=== PATIENT | female | born 1985 | race Caucasian/White ===

== ENCOUNTER 2016-10-16 11:10 | Emergency (ER) | payer OTHER ==
[2016-10-16] MEDS ORDERED: OXYCODONE/APAP 5/325MG COMBO TABLET PO ONE (11:18)
--- NOTE | 2016-10-16 11:18 | PDOC ---
History of Present Illness - General Chief Complaint: Chronic pain Stated Complaint: RIGHT SHOULDER PAIN History Source: Patient Exam Limitations: No Limitations - History of Present Illness Initial Comments: 10/16/16 11:15 The patient is a 30-year-old female, with a significant past medical history of known right rotator cuff injury and chronic pain, hypertension, diabetes, who presents to the emergency Department with worsened right shoulder pain for the past 3 days. She states that she has exacerbations every 1-2 months, and that this episode is very similar to her prior exacerbations. The pain is a dull ache , moderate in intensity. It is worsened by movement or palpation at the joint. She denies distal weakness or paresthesias. She denies reinjury. She denies fever, chills, rash. She states that she took a Percocet with excellent relief, but has no others at home. She did not take any of her medications this morning. Past History - Past Medical History Allergies/Adverse Reactions: Allergies Allergy/AdvReac Type Severity Reaction Status Date / Time diphenhydramine HCl AdvReac Verified 10/16/16 11:17 [From Benadryl] erythromycin base AdvReac Nausea Verified 10/16/16 11:18 Home Medications: Ambulatory Orders Levothyroxine [Synthroid -] 75 mcg PO DAILY 03/01/13 Ramipril [Altace] 20 mg PO DAILY 04/28/13 Insulin (Levemir) [Levemir Vial] 22 unit SQ BID 07/23/15 Insulin (LOG) Aspart [NovoLOG -] 6 units SQ TID 10/16/16 Naproxen [Naprosyn] 500 mg PO BID PRN #20 tablet 10/16/16 Oxycodone HCl/Acetaminophen [Percocet 5-325 mg Tablet] 1 - 2 combo PO Q4H PRN # 20 tablet MDD 6 10/16/16 Prednisone [Deltasone -] 40 mg PO ONCE #1 tablet 10/16/16 Anemia: No Asthma: (+) Cancer: No Cardiac Disorders: No CVA: No COPD: (+) CHF: No Dementia: No Diabetes: Yes GI Disorders: No Disorders: No HTN: Yes Hypercholesterolemia: No Kidney Stones: No Liver Disease: No Psychiatric Problems: Yes (Anxiety,Depression) Suicide Attempt (Hx): No Seizures: No Thyroid Disease: Yes (Muriel's disease hypothyroidism) - Surgical History Abdominal Surgery: No Neurologic Surgery: Yes (DISCECTOMY-2012) Orthopedic Surgery: Yes (surgert for herniated disc in 2012 at [facility]) - Immunization History Immunization Up to Date: Yes - Psycho/Social/Smoking Cessation Hx Anxiety: Yes Suicidal Ideation: No Smoking Status: Yes Smoking History: Never smoked Have you smoked in the past 12 months: No Number of Cigarettes Smoked Daily: 10 Cigars Per Day: 0 'Breaking Loose' booklet given: 08/04/14 Hx Alcohol Use: No Drug/Substance Use Hx: No Substance Use Type: Alcohol, Heroin, Marijuana Hx Substance Use Treatment: Yes (2012 [facility]) Review of Systems - Review of Systems Comments:: 10/16/16 11:16 CONSTITUTIONAL: Absent: fever, chills, fatigue EYES: Absent: visual changes ENT: Absent: ear pain, sore throat CARDIOVASCULAR: Absent: chest pain, palpitations, loss of consciousness RESPIRATORY: Absent: cough, SOB GI: Absent: abdominal pain, nausea, vomiting, constipation, diarrhea GENITOURINARY: Absent: dysuria, frequency, hematuria MUSKULOSKELETAL: Present: Right shoulder pain Absent: back pain SKIN: Absent: rash NEURO: Absent: headache, dizziness *Physical Exam - Physical Exam Comments: 10/16/16 11:17 GENERAL: Well-appearing, well-nourished. No apparent distress. HEENT: Normocephalic, atraumatic. PERRL, EOM intact. CARDIOVASCULAR: Normal S1, S2. Regular rate and rhythm. PULMONARY: Clear to auscultation bilaterally. ABDOMEN: Soft, non-distended, non-tender. EXTREMITIES: There is no tenderness to palpation of the right shoulder joint or girdle. There is pain with active or passive range of motion at the right shoulder Normal ROM in all four extremities. No gross deformities. SKIN: Warm, dry. No rash NEUROLOGICAL: No focal neurological deficits. Medical Decision Making - Medical Decision Making 10/16/16 11:17 The patient is well-appearing and in no acute distress Vitals noted She states that she did not take any of her medications this morning, and that she is both anxious and in pain She does not have any evidence of end organ damage Will recheck blood pressure 10/16/16 11:53 Blood pressure improved, though she remains hypertensive After extensive discussion, regarding the risks and benefits of the use of steroids to treat exacerbation of her chronic pain, both in regard to her diabetes and hypertension, I am electing to prescribe a single dose of prednisone 40 mg. She understands that she should not take it if her blood pressure is above 150/90. We had a similar discussion regarding the use of NSAIDs in regard to her blood pressure, and she also understands that she should not take them if her blood pressure is above 150/90. She has the ability to check both her blood sugar and her blood pressure at home. Clinical impression: Acute exacerbation of chronic shoulder pain I discussed the physical exam findings, ancillary test results and final diagnoses with the patient. I answered all of the patient's questions. The patient was satisfied with the care received and felt comfortable with the discharge plan and treatment plan. The patient will call their primary care physician within 24 hours to arrange follow-up and will return to the Emergency Department with any new, persistent or worsening symptoms. *DC/Admit/Observation/Transfer Diagnosis at time of Disposition: Chronic shoulder pain, High blood pressure - Discharge Dispostion Disposition: HOME Condition at time of disposition: Stable - Prescriptions Prescriptions: Prednisone [Deltasone -] 40 mg PO ONCE #1 tablet Naproxen [Naprosyn] 500 mg PO BID PRN #20 tablet PRN Reason: Pain Oxycodone HCl/Acetaminophen [Percocet 5-325 mg Tablet] 1 - 2 combo PO Q4H PRN # 20 tablet MDD 6 PRN Reason: Pain - Patient Instructions Printed Discharge Instructions: DI for Chronic Pain -- Adult, DI for Shoulder Pain Additional Instructions: Return to the emergency department immediately with ANY new, persistent or worsening symptoms. You MUST call and follow up with your doctor tomorrow. Please make sure your doctor reviews the results of your emergency department evaluation. Take your blood pressure medication as soon as you return home. Do not take the Naprosyn or the prednisone if your blood pressure is higher than 150/90. - Post Discharge Activity Work/School Note: Back to Work
[2016-10-16 11:36] VITALS: TEMP 98.3; BMI 18.6
[2016-10-16 12:17] VITALS: BP 154/108; PULSE 96
== END 2016-10-16 12:18 | disposition home or self-care (01) ==
LOC: FER 11:10
DX: M25.511 Pain in right shoulder (principal); I10 Essential (primary) hypertension; F41.8 Other specified anxiety disorders; E11.9 Type 2 diabetes mellitus without complications; G89.29 Other chronic pain; E06.3 Autoimmune thyroiditis
CPT/HCPCS: 99282-25

== ENCOUNTER 2016-10-31 11:23 | Emergency (ER) | payer OTHER ==
--- NOTE | 2016-10-31 11:32 | PDOC ---
History of Present Illness - General Chief Complaint: Pain, Acute Stated Complaint: RIGHT SIDE OF BACK PAIN TO SHOULDER AND NECK Time Seen by Provider: 10/31/16 11:31 History Source: Patient Exam Limitations: No Limitations - History of Present Illness Initial Comments: 30 yo F history Muriel's thyroiditis, DM, HTN, scoliosis presents with mid back pain. She states she was recently treated for UTI, initially on bactrim, but changed to a different antibiotic when she had vomiting with bactrim. Denies nausea, vomiting, fever, chills. She states she woke up with the pain, localizes to the right side of her spine in mid-back. No weakness, numbness. Pain is worse with ROM of the spine, better with rest. She took naproxen without relief. Past History - Past Medical History Allergies/Adverse Reactions: Allergies Allergy/AdvReac Type Severity Reaction Status Date / Time diphenhydramine HCl AdvReac Verified 10/31/16 11:25 [From Benadryl] erythromycin base AdvReac Nausea Verified 10/31/16 11:25 Home Medications: Ambulatory Orders Levothyroxine [Synthroid -] 75 mcg PO DAILY 03/01/13 Insulin (Levemir) [Levemir Vial] 22 unit SQ BID 07/23/15 Insulin (LOG) Aspart [NovoLOG -] 6 units SQ TID 10/16/16 Naproxen [Naprosyn] 500 mg PO BID PRN #20 tablet 10/16/16 Gabapentin 300 mg PO TID 10/31/16 Methocarbamol [Robaxin -] 500 mg PO BID PRN #14 tablet 10/31/16 Ramipril [Altace] 20 mg PO DAILY 10/31/16 Anemia: No Asthma: (+) Cancer: No Cardiac Disorders: No CVA: No COPD: (+) CHF: No Dementia: No Diabetes: Yes GI Disorders: No Disorders: No HTN: Yes Hypercholesterolemia: No Kidney Stones: No Liver Disease: No Psychiatric Problems: Yes (Anxiety,Depression) Suicide Attempt (Hx): No Seizures: No Thyroid Disease: Yes (Muriel's disease hypothyroidism) - Surgical History Abdominal Surgery: No Neurologic Surgery: Yes (DISCECTOMY-2012) Orthopedic Surgery: Yes (surgert for herniated disc in 2011 at [facility]) - Immunization History Immunization Up to Date: Yes - Psycho/Social/Smoking Cessation Hx Anxiety: Yes Suicidal Ideation: No Smoking Status: Yes Smoking History: Never smoked Have you smoked in the past 12 months: No Number of Cigarettes Smoked Daily: 10 Cigars Per Day: 0 'Breaking Loose' booklet given: 10/16/16 Hx Alcohol Use: No Drug/Substance Use Hx: No Substance Use Type: Alcohol, Heroin, Marijuana Hx Substance Use Treatment: Yes (2012 [facility]) Review of Systems - Review of Systems Able to Perform ROS?: Yes Comments:: GENERAL/CONSTITUTIONAL: No fever or chills. No weakness. HEAD, EYES, EARS, NOSE AND THROAT: No change in vision. No ear pain or discharge. No sore throat. CARDIOVASCULAR: No chest pain or shortness of breath. RESPIRATORY: No cough, wheezing, or hemoptysis. GASTROINTESTINAL: No nausea, vomiting, diarrhea or constipation. GENITOURINARY: No dysuria, frequency, or change in urination. MUSCULOSKELETAL: No joint or muscle swelling or pain. No neck pain. +Back pain. SKIN: No rash NEUROLOGIC: No headache, vertigo, loss of consciousness, or change in strength/ sensation. ENDOCRINE: No increased thirst. No abnormal weight change. HEMATOLOGIC/LYMPHATIC: No anemia, easy bleeding, or history of blood clots. ALLERGIC/IMMUNOLOGIC: No hives or skin allergy. *Physical Exam - Physical Exam Comments: GENERAL: Awake, alert, and fully oriented, appears uncomfortable. HEAD: No signs of trauma EYES: PERRLA, EOMI, sclera anicteric, conjunctiva clear ENT: Auricles normal inspection, hearing grossly normal, nares patent, oropharynx clear without exudates. Moist mucosa NECK: Normal ROM, supple, no lymphadenopathy, JVD, or masses LUNGS: Breath sounds equal, clear to auscultation bilaterally. No wheezes, and no crackles HEART: Regular rate and rhythm, normal S1 and S2, no murmurs, rubs or gallops ABDOMEN: Soft, nontender, normoactive bowel sounds. No guarding, no rebound. No masses. No CVAT. EXTREMITIES: Normal range of motion, no edema. No clubbing or cyanosis. No cords , erythema, or tenderness NEUROLOGICAL: Cranial nerves II through XII grossly intact. Normal speech, normal gait SKIN: Warm, Dry, normal turgor, no rashes or lesions noted. SPINE: +Scoliosis, with muscle spasms and tenderness to the R paraspinal lower thoracic and upper lumbar muscles. No midline tenderness. Medical Decision Making - Medical Decision Making 10/31/16 12:05 i-STOP Reference #: [id number]- patient with prior history of substance abuse as per chart review. 10/31/16 13:01 Patient states that her pain is now at a 1/10 with robaxin. She feels much better and would like to go home. Her ROM of her back has improved significantly. Given the proximity of the muscle spasm to the curvature of the spine, suspect her intermittent muscle spasms may be related to her scoliosis. Recommended possibly considering Schroth therapy, as she states she has had these spasms multiple times in the past. *DC/Admit/Observation/Transfer Diagnosis at time of Disposition: Muscle spasm - Discharge Dispostion Disposition: HOME Condition at time of disposition: Improved Admit: No - Prescriptions Prescriptions: Methocarbamol [Robaxin -] 500 mg PO BID PRN #14 tablet PRN Reason: Muscle Spasms - Patient Instructions Printed Discharge Instructions: DI for Muscle Strain
[2016-10-31 11:40] VITALS: BP 149/67; PULSE 85; TEMP 98.3; BMI 18.8
[2016-10-31] MEDS ORDERED: METHOCARBAMOL 500 MG TABLET PO ONE (11:51)
[2016-10-31] MEDS ORDERED: METHOCARBAMOL 500 MG TABLET ONE (11:58)
== END 2016-10-31 13:07 | disposition home or self-care (01) ==
LOC: FER 11:23
DX: M62.838 Other muscle spasm (principal); E06.3 Autoimmune thyroiditis; E11.9 Type 2 diabetes mellitus without complications; I10 Essential (primary) hypertension; M41.9 Scoliosis, unspecified; Z79.4 Long term (current) use of insulin
CPT/HCPCS: 99282-25

== ENCOUNTER 2017-01-02 14:35 | Emergency (ER) | payer OTHER ==
[2017-01-02 15:05] VITALS: BP 161/92; PULSE 89; TEMP 98.6; BMI 21.4
--- NOTE | 2017-01-02 15:43 | PDOC ---
History of Present Illness <Radha Herrera - Last Filed: 01/02/17 15:58> - History of Present Illness Initial Comments: 01/02/17 15:54 The patient is a 31 year old female, with a significant past medical history of type I diabetes, hypertension, and hypothyroidism, who presents to the emergency department with pain, tenderness, and mild swelling to her right upper back, shoulder and lower back for a week. She states she has been diagnosed with right shoulder and hip bursitis and tendonitis. She states she takes aleve and naproxen with significant relief of her back pain, however, she denies relief with the use of her medication for the past week. She states she has a rheumatoloist appointment next month. She states she has been told her scoliosis is mild. She states she has been through plenty of rehab for her back pain. 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 She denies chest pain, shortness of breath, headache and dizziness. She denies fever, chills, nausea, vomit, diarrhea and constipation. She denies dysuria, frequency, urgency and hematuria. Allergies: NKDA Past surgical history: L5S1 discectomy Social history: Denies toxic habits <Aletha Joseph - Last Filed: 01/02/17 16:03> - General Chief Complaint: Pain, Acute Stated Complaint: BACK PAIN Time Seen by Provider: 01/02/17 15:43 Past History - Past Medical History Anemia: No Asthma: (+) Cancer: No Cardiac Disorders: No CVA: No COPD: (+) CHF: No Dementia: No Diabetes: Yes GI Disorders: No Disorders: No HTN: Yes Hypercholesterolemia: No Kidney Stones: No Liver Disease: No Psychiatric Problems: Yes (Anxiety,Depression) Suicide Attempt (Hx): No Seizures: No Thyroid Disease: Yes (Muriel's disease hypothyroidism) - Surgical History Abdominal Surgery: No Neurologic Surgery: Yes (DISCECTOMY-2011) Orthopedic Surgery: Yes (surgert for herniated disc in 2011 at [facility]) - Immunization History Immunization Up to Date: Yes - Psycho/Social/Smoking Cessation Hx Anxiety: Yes Suicidal Ideation: No Smoking Status: Yes Smoking History: Smoker current status UNK Have you smoked in the past 12 months: No Number of Cigarettes Smoked Daily: 10 Cigars Per Day: 0 'Breaking Loose' booklet given: 10/16/16 Hx Alcohol Use: Yes Drug/Substance Use Hx: No Substance Use Type: Alcohol, Heroin, Marijuana Hx Substance Use Treatment: Yes (2012 [facility]) <Radha Herrera - Last Filed: 01/02/17 15:58> <Aletha Joseph - Last Filed: 01/02/17 16:03> - Past Medical History Allergies/Adverse Reactions: Allergies Allergy/AdvReac Type Severity Reaction Status Date / Time diphenhydramine HCl AdvReac Verified 01/02/17 14:51 [From Benadryl] erythromycin base AdvReac Nausea Verified 01/02/17 14:51 Home Medications: Ambulatory Orders Levothyroxine [Synthroid -] 75 mcg PO DAILY 03/01/13 Insulin (Levemir) [Levemir Vial] 22 unit SQ BID 07/23/15 Insulin (LOG) Aspart [NovoLOG -] 6 units SQ TID 10/16/16 Naproxen [Naprosyn] 500 mg PO BID PRN #20 tablet 10/16/16 Gabapentin 300 mg PO TID 10/31/16 Methocarbamol [Robaxin -] 500 mg PO BID PRN #14 tablet 10/31/16 Ramipril [Altace] 20 mg PO DAILY 10/31/16 Methylprednisolone [Medrol Dose Arnold] 4 mg PO ASDIR #21 tablet 01/02/17 Oxycodone HCl/Acetaminophen [Percocet 5/325 -] 1 tab PO Q6H #14 tablet MDD 4 Review of Systems - Review of Systems Able to Perform ROS?: Yes Comments:: 01/02/17 15:55 CONSTITUTIONAL: Absent: fever, chills, diaphoresis, generalized weakness, malaise, loss of appetite HEENT: Absent: rhinorrhea, nasal congestion, throat pain, throat swelling, difficulty swallowing, mouth swelling, ear pain, eye pain, visual Changes CARDIOVASCULAR: Absent: chest pain, syncope, palpitations, irregular heart rate, lightheadedness , peripheral edema RESPIRATORY: Absent: cough, shortness of breath, dyspnea with exertion, orthopnea, wheezing, stridor, hemoptysis GASTROINTESTINAL: Absent: abdominal pain, abdominal distension, nausea, vomiting, diarrhea, constipation, melena, hematochezia GENITOURINARY: Absent: dysuria, frequency, urgency, hesitancy, hematuria, flank pain, genital pain MUSCULOSKELETAL: (+) upper and lower right sided back pain. Absent: arthralgia, joint swelling SKIN: Absent: rash, itching, pallor HEMATOLOGIC/IMMUNOLOGIC: Absent: easy bleeding, easy bruising, lymphadenopathy, frequent infections ENDOCRINE: Absent: unexplained weight gain, unexplained weight loss, heat intolerance, cold intolerance NEUROLOGIC: Absent: headache, focal weakness or paresthesias, dizziness, unsteady gait, seizure, mental status changes, bladder or bowel incontinence PSYCHIATRIC: Absent: anxiety, depression, suicidal or homicidal ideation, hallucinations. <Aletha Joseph - Last Filed: 01/02/17 16:03> *Physical Exam - Vital Signs Last Vital Signs Temp Pulse Resp BP Pulse Ox 98.6 F 89 17 161/92 100 01/02/17 14:36 01/02/17 14:36 01/02/17 14:36 01/02/17 14:36 01/02/17 14:36 <Radha Herrera - Last Filed: 01/02/17 15:58> - Vital Signs Last Vital Signs Temp Pulse Resp BP Pulse Ox 98.6 F 89 17 161/92 100 01/02/17 14:36 01/02/17 14:36 01/02/17 14:36 01/02/17 14:36 01/02/17 14:36 - Physical Exam Comments: 01/02/17 15:56 GENERAL: Well developed, well nourished. Awake and alert. No acute distress. HEENT: Normocephalic, atraumatic. PERRLA, EOMI. No conjunctival pallor. Sclera are non- icteric. Moist mucous membranes. Oropharynx is clear. NECK: Supple. Full ROM. No JVD. Carotid pulses 2+ and symmetric, without bruits. No thyromegaly. No lymphadenopathy. CARDIOVASCULAR: Regular rate and rhythm. No murmurs, rubs, or gallops. Distal pulses are 2+ and symmetric. PULMONARY: No evidence of respiratory distress. Lungs clear to auscultation bilaterally. No wheezing, rales or rhonchi. ABDOMINAL: Soft. Non-tender. Non-distended. No rebound or guarding. No organomegaly. Normoactive bowel sounds. MUSCULOSKELETAL SPINE: (+) scoliosis of the spine with curvature to the right. right paraspinal tenderness to the thoracic and lumbar regions. There is no swelling appreciated to the joints or back. Normal range of motion at all joints. No bony deformities. No CVA tenderness. EXTREMITIES: No cyanosis. No clubbing. No edema. No calf tenderness. SKIN: Warm and dry. Normal capillary refill. No rashes. No jaundice. NEUROLOGICAL: Alert, awake, appropriate. Cranial nerves 2-12 intact. Normoreflexic in the upper and lower extremities. Normal speech. Toes are down-going bilaterally. Gait is normal without ataxia. PSYCHIATRIC: Cooperative. Good eye contact. Appropriate mood and affect. <Aletha Joseph - Last Filed: 01/02/17 16:03> *DC/Admit/Observation/Transfer - Discharge Dispostion Admit: No <Radha Herrera - Last Filed: 01/02/17 15:58> <Aletha Joseph - Last Filed: 01/02/17 16:03> Diagnosis at time of Disposition: Scoliosis, Muscle spasm - Discharge Dispostion Disposition: HOME Condition at time of disposition: Stable - Prescriptions Prescriptions: Methylprednisolone [Medrol Dose Arnold] 4 mg PO ASDIR #21 tablet Oxycodone HCl/Acetaminophen [Percocet 5/325 -] 1 tab PO Q6H #14 tablet MDD 4 - Patient Instructions Printed Discharge Instructions: Scoliosis-Adult
== END 2017-01-02 16:04 | disposition home or self-care (01) ==
LOC: FER 14:35
DX: M41.9 Scoliosis, unspecified (principal); M62.830 Muscle spasm of back; E10.9 Type 1 diabetes mellitus without complications; I10 Essential (primary) hypertension; E03.9 Hypothyroidism, unspecified
CPT/HCPCS: 99282-25

== ENCOUNTER 2017-03-19 12:35 | Emergency (ER) | payer OTHER ==
[2017-03-19 12:54] VITALS: BP 150/104; PULSE 72; TEMP 98.6; BMI 19.0
[2017-03-19 13:33] LABS: BASOPHIL 2.4 % (0-2.0); EOSINOPHIL 0.6 % (0-4.5); MCHC 33.4 g/dl (32.0-36.0); MEAN PLT VOLUME 10.5 fl (7.5-11.1); PLATELET COUNT 351 K/MM3 (134-434); WHITE BLOOD COUNT 13.5 K/mm3 (4.0-10.8)
--- NOTE | 2017-03-19 13:35 | PDOC ---
History of Present Illness - General Chief Complaint: Psychiatric Stated Complaint: ACHES & ANXIETY Time Seen by Provider: 03/19/17 12:50 - History of Present Illness Initial Comments: 03/19/17 13:30 31yo female presents to the ED with her father for eval of feeling depressed and anxious. States she was recently dx by her psychologist with bipolar and has an appt to see a psychiatrist at the end of the month. States she hasn't been sleeping. States she feels overwhelmed and has had increasing SI thoughts. Denies HI. Pt is tearful and states she has thought about jumping in front of a train. Pt states she feels overwhelmed also with her chronic back pain. Hx of L5 -s1 discectomy in the past with residual nerve damage and back spasms. Follows with orthopedics for her back. No new back injury. States she also hasn't been compliant with all of her meds because she just doesn't feel like taking them. Hasn't taken her synthroid or bp meds. States she last used her insulin this am. PMHx: bipolar, depression, anxiety, htn, dm, christal PShx: discectomy in back Allergies: erythromycin and benadryl Past History - Past Medical History Allergies/Adverse Reactions: Allergies Allergy/AdvReac Type Severity Reaction Status Date / Time diphenhydramine HCl AdvReac Verified 01/02/17 14:51 [From Benadryl] erythromycin base AdvReac Nausea Verified 01/02/17 14:51 Home Medications: Ambulatory Orders Insulin (Levemir) [Levemir Vial] 20 unit SQ BID 07/23/15 Insulin (LOG) Aspart [NovoLOG -] 4 units SQ TID 10/16/16 Gabapentin 600 mg PO TID 10/31/16 Amlodipine Besylate 5 mg PO DAILY 03/19/17 Atenolol [Tenormin] 25 mg PO DAILY 03/19/17 Clonazepam [Klonopin] 1 mg PO BID PRN #14 tablet MDD 2mg daily 03/19/17 Levothyroxine [Synthroid -] 50 mcg PO DAILY 03/19/17 Anemia: No Asthma: (+) Cancer: No Cardiac Disorders: No CVA: No COPD: No (+) CHF: No Dementia: No Diabetes: Yes GI Disorders: No Disorders: No HTN: Yes Hypercholesterolemia: No Kidney Stones: No Liver Disease: No Psychiatric Problems: Yes (Anxiety,Depression) Seizures: No Thyroid Disease: Yes (Christal's disease hypothyroidism) - Surgical History Abdominal Surgery: No Neurologic Surgery: Yes (DISCECTOMY-2012) Orthopedic Surgery: Yes (surgert for herniated disc in [address] [facility]) - Immunization History Immunization Up to Date: Yes - Suicide/Smoking/Psychosocial Hx Smoking Status: Yes Smoking History: Current every day smoker Have you smoked in the past 12 months: No Number of Cigarettes Smoked Daily: 10 Cigars Per Day: 0 Information on smoking cessation initiated: Yes 'Breaking Loose' booklet given: 10/16/16 Hx Alcohol Use: Yes Drug/Substance Use Hx: Yes Substance Use Type: Alcohol, Heroin, Marijuana Hx Substance Use Treatment: Yes (2012 [facility]) Review of Systems - Review of Systems Able to Perform ROS?: Yes Is the patient limited Sami proficient: No Constitutional: Yes: Weakness. No: Chills, Fever HEENTM: No: Nose Congestion, Throat Pain Respiratory: No: Cough, Shortness of Breath, Wheezing Cardiac (ROS): Yes: Palpitations. No: Chest Pain ABD/GI: No: Diarrhea, Nausea, Vomiting : No: Burning, Dysuria Musculoskeletal: Yes: Back Pain Integumentary: No: Rash Neurological: No: Headache, Numbness, Paresthesia, Tingling, Weakness Psychiatric: Yes: Anxiety, Depression, Frequent Crying, Sleep Pattern Change, Emotional Problems, Mood Swings, Other (SI, no HI) Endocrine: No: Intolerance to Cold, Intolerance to Heat All Other Systems: Reviewed and Negative *Physical Exam - Vital Signs Last Vital Signs Temp Pulse Resp BP Pulse Ox 98.6 F 72 18 150/104 100 03/19/17 12:45 03/19/17 12:45 03/19/17 12:45 03/19/17 12:45 03/19/17 12:45 - Physical Exam General Appearance: Yes: Nourished, Appropriately Dressed, Other (tearful) HEENT: positive: EOMI, Normal Voice, Pharynx Normal Neck: positive: Supple Respiratory/Chest: positive: Lungs Clear, Normal Breath Sounds. negative: Chest Tender, Respiratory Distress, Rales, Rhonchi, Wheezing Cardiovascular: positive: Regular Rhythm, Regular Rate, S1, S2 Vascular Pulses: Dorsalis-Pedis (R): 2+, Doralis-Pedis (L): 2+ Gastrointestinal/Abdominal: positive: Normal Bowel Sounds, Flat, Soft. negative : Tender, Guarding, Rebound Musculoskeletal: positive: Normal Inspection Extremity: positive: Normal Capillary Refill, Normal Inspection, Normal Range of Motion. negative: Calf Tenderness, Erythema Integumentary: positive: Normal Color, Dry, Warm Neurologic: positive: infection prevention coordinator II-XII NML intact, Fully Oriented, Alert, Motor Strength 5/5, Depressed Affect, Other (tearful, emotionally labile) ED Treatment Course - LABORATORY CBC & Chemistry Diagram: 03/19/17 13:14 03/19/17 13:14 Medical Decision Making - Medical Decision Making 03/19/17 13:36 31yo female with SI/depression -check labs given hx of dm, htn, hypothyroidism as organic cause of worsening depression/anxiety/SI -will call psychiatry -1:1 sitter for safety -ua -ucg (pt states she hasn't had her menstrual cycle x 1 year -monitor and re-eval 03/19/17 14:18 pt has been seen by Dr. Ray in the ED. recommends 1mg klonopin BID x 2 weeks and follow up with psych as outpt. Cleared from a psychiatric standpoint and SI complaints. 03/19/17 15:52 re-eval: pt feeling much better. No SI at this time. Cleared by psych. Resting comfortably. Discussed lab results with the patient. Discussed all reasons to return to the ED and need for follow up with psychiatry as an outpt. Dad at the bedside agrees with the plan. Pt agrees with the plan. Stable for d/c to home. *DC/Admit/Observation/Transfer Diagnosis at time of Disposition: DM Diabetes mellitus type 1, Essential hypertension, Insomnia, History of back surgery, Anxiety - Discharge Dispostion Disposition: HOME Condition at time of disposition: Stable Admit: No - Prescriptions Prescriptions: Clonazepam [Klonopin] 1 mg PO BID PRN #14 tablet MDD 2mg daily PRN Reason: Anxiety - Referrals Referrals: Yasmine Gallagher [Staff Physician] - - Patient Instructions Printed Discharge Instructions: DI for Anxiety -- Adult Additional Instructions: Please follow up with the psychiatric clinic as discussed with Dr. Ray. Please take all meds as prescribed. Please call your therapist to arrange for follow up. Please return to the ED with any further concerns. - Post Discharge Activity
[2017-03-19 13:49] LABS: ALBUMIN 4.5 g/dl (3.5-5.0); ALK PHOS 52 U/L (32-92); ANION GAP 7 (8-16); BILIRUBIN,TOTAL 0.4 mg/dl (0.2-1.0); CALCIUM 9.8 mg/dl (8.4-10.2); CO2 28 mmol/L (22-28); CREATININE 0.5 mg/dl (0.6-1.3); GLUCOSE,RANDOM 201 mg/dl (74-106); MAGNESIUM 1.9 mg/dL (1.8-2.4); SGOT/AST 14 U/L (10-42); SGPT/ALT 14 U/L (10-40)
[2017-03-19] MEDS ORDERED: clonazePAM 0.5 MG TABLET ONE (14:10)
--- NOTE | 2017-03-19 14:20 | CON.PSY ---
Psychiatry Consult Chief Complaint: 31 year old female brought to ER by her vfather for increasing anxiety and mood swings. patient attends [facility] in [place] and has a therapist. Sjanjelica is waiting to see a Psychaitrist. Symptoms: reports: Anxiety - Previous Psychiatric Treatment Outpatient: Less than 6 mos ago Inpatient: None - Allergies Allergies: Allergies Allergy/AdvReac Type Severity Reaction Status Date / Time diphenhydramine HCl AdvReac Verified 01/02/17 14:51 [From Benadryl] erythromycin base AdvReac Nausea Verified 01/02/17 14:51 - Current Living Status Usual Living Arrangement: With Parent - Current Mental Status Evaluation Appearance: Well Groomed Attitude: Cooperative - Affect Affect: Full Range Appropriateness: Appropriate to Content - Mood Mood: Anxious - Speech/Language Expressive: Coherent - Psychomotor Activity Psychomotor Activity: Normal - Thought Process Thought Process: Intact - Thought Content Hallucinations: Absent Delusions: Absent - Self Perception Self Perception: No Impairment - Cognition Attention: Alert Orientation: Time Memory, Immediate Recall: Intact Memory, Short Term: 3/3 Memory, Remote with Promptin/3 - Concentration Serial Sevens Intact: Yes Simple Calculations Intact: Yes - Abstraction Proverb Interpretation: Intact Judgement: Intact - Insight Insight: Intact - Impulse Control Impulse Control: Good Control - Suicidal Ideation Suicidal Ideation: No - Homicidal Ideation Homicidal Ideation: No Assessment/Plan 1) patient is not acutely suicidal, no concrete plans. @) Klonapin 1mg po BID for anxiety. 3) follow up at [facility] for an evaluation of ? Bipolar Disorder. 4) Father willing to bring patient home with him and bring to clinic on Tuesday. 5) discharge Patient in care of Family, father.
[2017-03-19] MEDS ORDERED: clonazePAM 0.5 MG TABLET PO ONE (14:28)
[2017-03-19 14:42] LABS: PH,URINE 7.5 (4.5-8); URINE BILIRUBIN 1+ (NEGATIVE); URINE BLOOD Negative (NEGATIVE); URINE COLOR AMBER; URINE GLUCOSE (UA) 3+ (NEGATIVE); URINE KETONE Trace (NEGATIVE); URINE LEUK ESTERASE TRACE (NEGATIVE); URINE NITRITE Negative (NEGATIVE); URINE PROTEIN Trace (NEGATIVE)
[2017-03-19 14:43] LABS: URINE APPEARANCE CLOUDY
[2017-03-19 14:52] LABS: URINE BACTERIA FEW /hpf (NEGATIVE); URINE RBC 0-1 /hpf (0-3)
[2017-03-19 15:22] LABS: THYROID STIMULATING HORMONE 0.09 uIU/ml (0.358-3.74)
[2017-03-19 15:42] LABS: FREE T4 1.11 ng/dl (0.76-1.46)
== END 2017-03-19 16:05 | disposition home or self-care (01) ==
LOC: FER 12:35
DX: E11.9 Type 2 diabetes mellitus without complications (principal); I10 Essential (primary) hypertension; F41.9 Anxiety disorder, unspecified; G47.00 Insomnia, unspecified
CPT/HCPCS: 36415; 80053; 81003; 81015; 83735; 84439; 84443; 84703; 85025; 99283-25

== ENCOUNTER 2017-05-08 00:04 | Inpatient (IN) | payer OTHER ==
[2017-05-08] MEDS ORDERED: FAMOTIDINE IV 20 MG/12 ML VIAL IVPUSH ONE (00:35)
[2017-05-08] MEDS ORDERED: PANTOPRAZOLE SODIUM 40 MG VIAL IVPUSH ONE (00:35)
[2017-05-08] MEDS ORDERED: ONDANSETRON 4 MG/2 ML VIAL IVPB ONE (00:35)
[2017-05-08] MEDS ORDERED: SODIUM CHLORIDE 1,000 ML IV STA ×2 (00:36→01:49)
[2017-05-08] MEDS ORDERED: ACETAMINOPHEN 1000 MG/100 ML VIAL (NON FORMULARY) IVPB ONE (00:39)
[2017-05-08] MEDS ORDERED: ACETAMINOPHEN INJECTION 100 ML IVPB ONE (00:45)
[2017-05-08] MEDS ORDERED: ONDANSETRON *ODT* 4 MG TABLET ONE (00:45)
[2017-05-08] MEDS ORDERED: FAMOTIDINE 20 MG/50 ML IVPB 20 MG/50 ML MG IVPB ONE (00:46)
[2017-05-08] MEDS ORDERED: PANTOPRAZOLE SODIUM 40 MG VIAL ONE (00:46)
[2017-05-08] MEDS ORDERED: ONDANSETRON 4 MG/2 ML VIAL ONE (00:46)
--- NOTE | 2017-05-08 00:54 | PDOC ---
History of Present Illness - General History Source: Patient, Family, Old Records Exam Limitations: No Limitations - History of Present Illness Initial Comments: 05/08/17 00:55 The patient is a 31 year old female, with a significant past medical history of type I diabetes, hypertension, hypothyroidism, anxiety, and depression, who presents to the emergency department via EMS with, elevated glucose readings, abdominal pain, constipation, and emesis. She reports blood glucose readings between 300-399. As per EMS, her glucose reading was 422. Patient reports giving herself an enema last night. She reports the nausea and emesis began secondary to the enema. She reports significant abdominal pain. As per patients mother, she has only had water and Gatorade today, due to her symptoms. She denies taking her medication today due to her symptoms. She denies recent fevers, chills, headache or dizziness. She denies recent diarrhea. She denies recent dysuria, frequency, urgency or hematuria. She denies recent chest pain or shortness of breath. Allergies: Diphenhydramine HCl, erythromycin base. Past surgical history: L5S1 discectomy. Primary Care Physician: Dr. Stovall <Charly Akers - Last Filed: 05/08/17 00:55> - General History Source: Patient, Family, Old Records Exam Limitations: No Limitations <Roberto Kinney - Last Filed: 05/08/17 01:56> <Radha Truong - Last Filed: 05/08/17 06:36> - General Chief Complaint: Pain, Acute Stated Complaint: HYPERGLYCEMIA Time Seen by Provider: 05/08/17 00:11 Past History <Charly Akers - Last Filed: 05/08/17 00:55> - Past Medical History Anemia: No Asthma: (+) Cancer: No Cardiac Disorders: No CVA: No COPD: No (+) CHF: No Dementia: No Diabetes: Yes GI Disorders: No Disorders: No HTN: Yes Hypercholesterolemia: No Kidney Stones: No Liver Disease: No Psychiatric Problems: Yes (Anxiety,Depression) Seizures: No Thyroid Disease: Yes (Muriel's disease hypothyroidism) - Surgical History Abdominal Surgery: No Neurologic Surgery: Yes (DISCECTOMY-2011) Orthopedic Surgery: Yes (surgert for herniated disc in 2011 at [facility]) - Immunization History Immunization Up to Date: Yes - Suicide/Smoking/Psychosocial Hx Smoking Status: Yes Smoking History: Current every day smoker Have you smoked in the past 12 months: No Number of Cigarettes Smoked Daily: 9 Cigars Per Day: 0 Information on smoking cessation initiated: No 'Breaking Loose' booklet given: 03/19/17 Hx Alcohol Use: No Drug/Substance Use Hx: No Substance Use Type: Alcohol, Heroin, Marijuana Hx Substance Use Treatment: Yes (2012 [facility]) <Roberto Kinney - Last Filed: 05/08/17 01:56> <Radha Truong - Last Filed: 05/08/17 06:36> - Past Medical History Allergies/Adverse Reactions: Allergies Allergy/AdvReac Type Severity Reaction Status Date / Time No Known Drug Allergies Allergy Verified 05/08/17 02:15 diphenhydramine HCl AdvReac Verified 05/08/17 01:52 [From Benadryl] erythromycin base AdvReac Nausea Verified 05/08/17 01:52 Home Medications: Ambulatory Orders Baclofen 10 mg PO DAILY 05/08/17 Clonazepam [Klonopin] 2 mg PO DAILY 05/08/17 Fluoxetine HCl [Prozac] 10 mg PO DAILY 05/08/17 Insulin (Levemir) [Levemir Vial] 22 unit SQ DAILY 05/08/17 Lamotrigine [Lamictal] 25 mg PO DAILY 05/08/17 Levothyroxine [Synthroid -] 50 mcg PO DAILY 05/08/17 Ramipril [Altace] 10 mg PO DAILY 05/08/17 Trazodone HCl 300 mg PO DAILY 05/08/17 Review of Systems - Review of Systems Able to Perform ROS?: Yes Comments:: 05/08/17 00:55 GENERAL/CONSTITUTIONAL: +Elevated blood glucose levels. No fever or chills. No weakness. HEAD, EYES, EARS, NOSE AND THROAT: No change in vision. No ear pain or discharge. No sore throat. CARDIOVASCULAR: No chest pain or shortness of breath. RESPIRATORY: No cough, wheezing, or hemoptysis. GASTROINTESTINAL: +Abdominal pain. +Constipation. +Nausea. +Vomiting. No diarrhea. GENITOURINARY: No dysuria, frequency, or change in urination. MUSCULOSKELETAL: No joint or muscle swelling or pain. No neck or back pain. SKIN: No rash NEUROLOGIC: No headache, vertigo, loss of consciousness, or change in strength/ sensation. ENDOCRINE: No increased thirst. No abnormal weight change. HEMATOLOGIC/LYMPHATIC: No anemia, easy bleeding, or history of blood clots. ALLERGIC/IMMUNOLOGIC: No hives or skin allergy. All Other Systems: Reviewed and Negative <Charly Akers - Last Filed: 05/08/17 00:55> *Physical Exam - Vital Signs Last Vital Signs Temp Pulse Resp BP Pulse Ox 97.5 F L 100 H 20 144/102 100 05/08/17 00:39 05/08/17 00:39 05/08/17 00:39 05/08/17 00:39 05/08/17 00:39 - Physical Exam Comments: 05/08/17 00:56 GENERAL: +Uncomfortable appearing. Awake, alert, and fully oriented HEAD: No signs of trauma EYES: PERRLA, EOMI, sclera anicteric, conjunctiva clear ENT: +Dry mucous membranes. Auricles normal inspection, hearing grossly normal, nares patent, oropharynx clear without exudates. NECK: Normal ROM, supple, no lymphadenopathy, JVD, or masses ABDOMEN: +Distended abdomen. EXTREMITIES: Normal range of motion, no edema. No clubbing or cyanosis. No cords, erythema, or tenderness NEUROLOGICAL: Cranial nerves II through XII grossly intact. Normal speech, normal gait SKIN: Warm, Dry, normal turgor, no rashes or lesions noted. <Charly Akers - Last Filed: 05/08/17 00:55> - Vital Signs Last Vital Signs Temp Pulse Resp BP Pulse Ox 97.5 F L 100 H 20 144/102 100 05/08/17 00:39 05/08/17 00:39 05/08/17 00:39 05/08/17 00:39 05/08/17 00:39 <Roberto Kinney - Last Filed: 05/08/17 01:56> - Vital Signs Last Vital Signs Temp Pulse Resp BP Pulse Ox 97.5 F L 100 H 20 144/102 100 05/08/17 00:39 05/08/17 00:39 05/08/17 00:39 05/08/17 00:39 05/08/17 00:39 <Radha Truong - Last Filed: 05/08/17 06:36> Heart Score/ECG Review #1 ECG reviewed & interpreted by me at: 01:40 05/08/17 01:46 NSR 99, T wave flat III, TWI V2-V3, no std/vincent, QTC 479 msec <Roberto Kinney - Last Filed: 05/08/17 01:56> ED Treatment Course - LABORATORY CBC & Chemistry Diagram: 05/08/17 01:00 05/08/17 01:00 <Roberto Kinney - Last Filed: 05/08/17 01:56> - LABORATORY CBC & Chemistry Diagram: 05/08/17 01:00 05/08/17 01:00 - ADDITIONAL ORDERS Additional order review: Laboratory Results 05/08/17 05/08/17 05/08/17 03:29 03:29 01:00 PT with INR INR PTT (Actin FS) VBG pH POC VBG pCO2 POC VBG pO2 Mixed VBG HCO3 Sodium Potassium Chloride Carbon Dioxide Anion Gap BUN Creatinine Creat Clearance w eGFR Random Glucose Lactic Acid 2.0 Calcium Phosphorus Magnesium Total Bilirubin AST ALT Alkaline Phosphatase Creatine Kinase Troponin I Total Protein Albumin Lipase Serum , Qual Urine Color Ltyellow Urine Appearance Clear Urine pH 5.0 Ur Specific [place] 1.017 Urine Protein Negative Urine Glucose (UA) 3+ H Urine Ketones 2+ H Urine Blood Negative Urine Nitrite Negative Urine Bilirubin Negative Urine Urobilinogen Negative Ur Leukocyte Esterase Negative Opiates Screen Positive Methadone Screen Negative Barbiturate Screen Negative Phencyclidine Screen Negative Ur Amphetamines Screen Negative MDMA (Ecstasy) Screen Negative Benzodiazepines Screen Negative Cocaine Screen Negative U Marijuana (THC) Screen Positive Acetone, Qual 05/08/17 05/08/17 05/08/17 01:00 01:00 01:00 PT with INR INR PTT (Actin FS) VBG pH 7.21 L* D POC VBG pCO2 27.1 L D POC VBG pO2 72.1 H Mixed VBG HCO3 10.5 L* Sodium 135 L Potassium 4.6 Chloride 100 Carbon Dioxide 11 L Anion Gap 24 H BUN 23 H Creatinine 0.9 Creat Clearance w eGFR > 60 Random Glucose 413 H* Lactic Acid Calcium 9.1 Phosphorus 4.8 Magnesium 2.0 Total Bilirubin 1.3 H D AST 11 L ALT 19 Alkaline Phosphatase 91 Creatine Kinase 93 Troponin I < 0.02 Total Protein 7.6 Albumin 4.2 Lipase 30 L Serum , Qual Negative Urine Color Urine Appearance Urine pH Ur Specific [place] Urine Protein Urine Glucose (UA) Urine Ketones Urine Blood Urine Nitrite Urine Bilirubin Urine Urobilinogen Ur Leukocyte Esterase Opiates Screen Methadone Screen Barbiturate Screen Phencyclidine Screen Ur Amphetamines Screen MDMA (Ecstasy) Screen Benzodiazepines Screen Cocaine Screen U Marijuana (THC) Screen Acetone, Qual Positive large 3+ H 05/08/17 01:00 PT with INR 10.80 INR 0.96 PTT (Actin FS) 31.3 VBG pH POC VBG pCO2 POC VBG pO2 Mixed VBG HCO3 Sodium Potassium Chloride Carbon Dioxide Anion Gap BUN Creatinine Creat Clearance w eGFR Random Glucose Lactic Acid Calcium Phosphorus Magnesium Total Bilirubin AST ALT Alkaline Phosphatase Creatine Kinase Troponin I Total Protein Albumin Lipase Serum , Qual Urine Color Urine Appearance Urine pH Ur Specific [place] Urine Protein Urine Glucose (UA) Urine Ketones Urine Blood Urine Nitrite Urine Bilirubin Urine Urobilinogen Ur Leukocyte Esterase Opiates Screen Methadone Screen Barbiturate Screen Phencyclidine Screen Ur Amphetamines Screen MDMA (Ecstasy) Screen Benzodiazepines Screen Cocaine Screen U Marijuana (THC) Screen Acetone, Qual 05/08/17 01:00 RBC 4.67 MCV 92.1 MCHC 31.6 L RDW 15.8 H D MPV 10.2 Neutrophils % 85.1 H Lymphocytes % 8.5 D Monocytes % 6.3 Eosinophils % 0.0 D Basophils % 0.1 - Medications Given in the ED: ED Medications Discontinued Medications Generic Name Dose Route Start Last Admin Trade Name Freq PRN Reason Stop Dose Admin Acetaminophen 1,000 mg 05/08/17 00:39 05/08/17 01:00 Ofirmev Injection - IVPB 05/08/17 00:40 1,000 mg ONCE ONE Administration Famotidine 20 mg in 12 mls @ 144 mls/hr 05/08/17 00:35 05/08/17 01:00 Pepcid 20 Mg/12 Ml Push IVPUSH 05/08/17 00:39 144 mls/hr ONCE ONE Administration Sodium Chloride 1,000 mls @ 1,000 mls/hr 05/08/17 00:36 05/08/17 01:00 Normal Saline - IV 05/08/17 01:35 1,000 mls/hr ASDIR STA Administration Sodium Chloride 1,000 mls @ 1,000 mls/hr 05/08/17 01:49 05/08/17 01:59 Normal Saline - IV 05/08/17 02:48 1,000 mls/hr ASDIR STA Administration Insulin Human Regular 5 units 05/08/17 01:47 05/08/17 01:59 Novolin R Vial *For Ivpush Or Iv Drip Only* IVPUSH 05/08/17 01:48 5 units ONCE ONE Administration Morphine Sulfate 4 mg 05/08/17 01:15 05/08/17 01:22 Morphine Injection - IVPUSH 05/08/17 01:16 4 mg ONCE ONE Administration Ondansetron HCl 4 mg 05/08/17 00:35 05/08/17 01:00 Zofran Injection IVPB 05/08/17 00:36 4 mg ONCE ONE Administration Pantoprazole Sodium 40 mg 05/08/17 00:35 05/08/17 01:00 Protonix Iv IVPUSH 05/08/17 00:36 40 mg ONCE ONE Administration <Radha Truong - Last Filed: 05/08/17 06:36> Medical Decision Making - Critical Care Time Total Critical Care Time (minutes): 45 Critical Care Statement: The care of this patient involved high complexity decision making to prevent further life threatening deterioration of the patient 's condition and/or to evaluate & treat vital organ system(s) failure or risk of failure. - Medical Decision Making 05/08/17 00:50 A portion of this note was documented by scribe services under my direction. I have reviewed the details of the note, within reason, and agree with the documentation with the following case summary and management plan written by me. Patient treated in the ED. Nursing notes are reviewed and incorporated into the medical decision-making. Vital signs reviewed. Peripheral IV access obtained by the nurse, laboratory studies are drawn and sent, reviewed and interpreted by myself. Vital Signs Temp Pulse Resp BP Pulse Ox 97.5 F L 100 H 20 144/102 100 05/08/17 00:39 05/08/17 00:39 05/08/17 00:39 05/08/17 00:39 05/08/17 00:39 31-year-old female with history of type 1 diabetes, prior history of DKA, bipolar and anxiety disorder, prior history of polysubstance abuse, history of chronic back pain, thyroid disorder, hypertension brought in by EMS for diffuse abdominal pain and nausea and vomiting. The patient reports and the mother reports that the patient is been having persistent nausea and vomiting for the last several days. Has had decreased by mouth intake. Has noticed that her sugars been 400 or higher. Denies fevers or chills. The mother suspects that the patient has been taking oxycodone for her chronic back pain and that the patient has been increasingly more constipated. The patient also confirms that she has had constipation. Patient continued to feel so unwell that she had taken a Fleet enema today. The patient believes that she may be in diabetic ketoacidosis. I agree that we will certainly need to rule out diabetic ketoacidosis particularly that her sugars are over range. Patient is certainly distended and may be secondary to constipation. However, with the diffuse abdominal pain, differential includes gastroparesis, pancreatitis, other acute pathology. Should consider CT scan the abdomen pelvis. Labs, sent to control. Patient will likely need to be admitted to the hospital for further evaluation. 05/08/17 01:56 CBC, BMP 05/08/17 01:00 05/08/17 01:00 CMP Sodium 135 mmol/L (136-145) L 05/08/17 01:00 Potassium 4.6 mmol/L (3.5-5.1) 05/08/17 01:00 Chloride 100 mmol/L (98-107) 05/08/17 01:00 Carbon Dioxide 11 mmol/L (21-32) L 05/08/17 01:00 Anion Gap 24 (8-16) H 05/08/17 01:00 BUN 23 mg/dL (7-18) H 05/08/17 01:00 Creatinine 0.9 mg/dL (0.55-1.02) 05/08/17 01:00 Creat Clearance w eGFR > 60 (>60) 05/08/17 01:00 Random Glucose 413 mg/dL (74-106) H* 05/08/17 01:00 Calcium 9.1 mg/dL (8.5-10.1) 05/08/17 01:00 Phosphorus 4.8 mg/dL (2.5-4.9) 05/08/17 01:00 Magnesium 2.0 mg/dL (1.8-2.4) 05/08/17 01:00 Total Bilirubin 1.3 mg/dL (0.2-1.0) H D 05/08/17 01:00 AST 11 U/L (15-37) L 05/08/17 01:00 ALT 19 U/L (12-78) 05/08/17 01:00 Alkaline Phosphatase 91 U/L (45-117) 05/08/17 01:00 Creatine Kinase 93 IU/L (26-192) 05/08/17 01:00 Troponin I < 0.02 ng/ml (0.00-0.05) 05/08/17 01:00 Total Protein 7.6 g/dl (6.4-8.2) 05/08/17 01:00 Albumin 4.2 g/dl (3.4-5.0) 05/08/17 01:00 Lipase 30 U/L (73-393) L 05/08/17 01:00 Serum , Qual Negative 05/08/17 01:00 Pt with elevated anion gap and glucose with acidosis, likely DKA. Insulin bolus and drip ordered. Given abdominal pain, obtain CT abdomen and pelvis. Case signed out to Dr. truong for further management. <Roberto Kinney - Last Filed: 05/08/17 01:56> - Medical Decision Making 05/08/17 06:01 Pt has a colon full of stool; rectum also with stool. Pt has constipation. I am awaiting official CT result. Pt will be admitted to the ICU for her DKA SHe will be given meds for her constipation. Admit to hospitalist; ICU TAX COMMISSIONER is aware and agrees pt should go toICU if and when a bed opens uup in the ICU. 05/08/17 06:19 Patient Name: ROSE POSEY THIS IS A PRELIMINARY REPORT FROM [facility]AGING [facility] [employer] DATE OF SERVICE: 2017-05-08 05:12:15 IMAGES: [id number] EXAM: CT ABDOMEN AND PELVIS with contrast HISTORY: Abdominal pain COMPARISON: None. FINDINGS: Lung bases are clear. The visualized cardiac chambers are normal size and configuration. Normal liver, gallbladder, pancreas, spleen, adrenal glands and kidneys. The stomach and small bowel are normal. There is a massive amount of diffuse solid stool consistent with fecal impaction, with rectal distention up to 11.9 cm, place the patient at risk for perforation. There is no aortic aneurysm. There is no significant retroperitoneal lymphadenopathy. The appendix is normal. The uterus and adnexal structures are normal. Urinary bladder is unremarkable. There is no pelvic free fluid. No discrete pelvic lymphadenopathy is identified. IMPRESSION: Severe fecal impaction with risk of bowel perforation.. THIS DOCUMENT HAS BEEN ELECTRONICALLY SIGNED 05/08/17 06:27 I discussed the danger of pt perforating her colon/rectum. She wants to now go to the bathroom and move her bowels. Pt's blood sugar is 89- 180 on our ER glucometer 05/08/17 06:29 Pt is + for opiates ad marijuana and she has hx of drug abuse. She is stable at this time and she is awaiting ICU bed. We need to adjust her insulin drip. <Radha Truong - Last Filed: 05/08/17 06:36> *DC/Admit/Observation/Transfer - Attestations Scribe Attestion: 05/08/17 00:56 Documentation prepared by Charly Akers, acting as medical logistics specialist for Roberto Kinney MD. <Charly Akers - Last Filed: 05/08/17 00:55> <Roberto Kinney - Last Filed: 05/08/17 01:56> - Discharge Dispostion Admit: Yes <Radha Truong - Last Filed: 05/08/17 06:36> Diagnosis at time of Disposition: DM Diabetes mellitus type 1, DKA (diabetic ketoacidoses), Cannabis dependence, Nicotine dependence, Opioid dependence - Discharge Dispostion Condition at time of disposition: Guarded
[2017-05-08] MEDS ORDERED: morphine CARPU-JECT 4 MG/1 ML DISP.SYRIN IVPUSH ONE (01:15)
[2017-05-08 01:16] LABS: VENOUS PC02 27.1 mmHg (38-52); VENOUS PH 7.21 (7.32-7.42); VENOUS PO2 72.1 mmHg (28-48)
[2017-05-08 01:17] LABS: BASO % 0.1 % (0-2.0); HEMOGLOBIN 13.6 GM/dL (10.7-15.3); LYMPH % 8.5 % (8-40); MCH 29.1 pg (25.7-33.7); MCHC 31.6 g/dl (32.0-36.0); MEAN CELL VOLUME 92.1 fl (80-96); MEAN PLT VOLUME 10.2 fl (7.5-11.1); MONO % 6.3 % (3.8-10.2); NEUT % 85.1 % (42.8-82.8); PLATELET COUNT 340 K/MM3 (134-434); RBC 4.67 M/mm3 (3.60-5.2); RDW 15.8 % (11.6-15.6); WHITE BLOOD COUNT 23.4 K/mm3 (4.0-10.0)
[2017-05-08] MEDS ORDERED: morphine CARPU-JECT 10 MG/1 ML DISP.SYRIN ONE (01:20)
[2017-05-08 01:27] LABS: INR 0.96 (0.82-1.09); PROTHROMBIN TIME (PATIENT) 10.8 SEC (9.98-11.88)
[2017-05-08 01:29] LABS: ACTIVATED PTT 31.3 SECONDS (26.9-34.4)
[2017-05-08 01:40] LABS: ALBUMIN 4.2 g/dl (3.4-5.0); ALK PHOS 91 U/L (45-117); ANION GAP 24 (8-16); BILIRUBIN,TOTAL 1.3 mg/dL (0.2-1.0); BLOOD UREA NITROGEN 23 mg/dL (7-18); CALCIUM 9.1 mg/dL (8.5-10.1); CHLORIDE 100 mmol/L (98-107); CO2 11 mmol/L (21-32); CREATININE 0.9 mg/dL (0.55-1.02); LIPASE 30 U/L (73-393); PHOSPHOROUS 4.8 mg/dL (2.5-4.9); POTASSIUM 4.6 mmol/L (3.5-5.1); SGOT/AST 11 U/L (15-37); SGPT/ALT 19 U/L (12-78); SODIUM 135 mmol/L (136-145); TOT PROT 7.6 g/dl (6.4-8.2)
[2017-05-08 01:44] LABS: GLUCOSE,RANDOM 413 mg/dL (74-106)
[2017-05-08] MEDS ORDERED: INSULIN REGULAR HUMAN 100 UNITS/ML *VIAL IVPUSH ONE (01:47)
[2017-05-08] MEDS ORDERED: INSULIN REGULAR HUMAN 100 UNITS/ML *VIAL ONE ×2 (01:54→18:13)
[2017-05-08] MEDS ORDERED: INSULIN REGULAR 100 UNITS in SODIUM CHLORIDE 99 ML IVPB SCH (02:00)
[2017-05-08 02:41] LABS: ACETONE SERUM POSITIVE LARGE 3+ (NEGATIVE)
[2017-05-08 03:37] LABS: URINE APPEARANCE CLEAR; URINE BILIRUBIN NEGATIVE (NEGATIVE); URINE BLOOD NEGATIVE (NEGATIVE); URINE COLOR LTYELLOW; URINE GLUCOSE (UA) 3+ (NEGATIVE); URINE KETONE 2+ (NEGATIVE); URINE LEUK ESTERASE NEGATIVE (NEGATIVE); URINE NITRITE NEGATIVE (NEGATIVE); URINE PROTEIN NEGATIVE (NEGATIVE); URINE UROBILINOGEN NEGATIVE mg/dL (0.2-1.0)
[2017-05-08 04:05] LABS: COCAINE, UR NEGATIVE ng/ml (CUTOFF=300); METHADONE, UR NEGATIVE ng/ml (CUTOFF=300); OPIATES, URI POSITIVE ng/ml (CUTOFF=300); PHENCYCLIDINE,URINE NEGATIVE ng/ml (CUTOFF=25); URINE AMPHETAMINES NEGATIVE ng/ml (CUTOFF=500); URINE BARBITURATES NEGATIVE ng/ml (CUTOFF=200); URINE BENZODIAZEPINES NEGATIVE ng/ml (CUTOFF=200)
[2017-05-08] MEDS ORDERED: METOCLOPRAMIDE HCL INJECTION 10 MG/2 ML VIAL IVPUSH ONE (05:57)
[2017-05-08] MEDS ORDERED: POLYETHYLENE GLYCOL 3350 119 GM BTL PO ONE (06:00)
[2017-05-08] MEDS ORDERED: LACTULOSE 20 GM/30 ML UDC (FOR ORAL USE ONLY) PO ONE (06:00)
[2017-05-08] MEDS ORDERED: LACTULOSE 20 GM/30 ML UDC (FOR ORAL USE ONLY) ONE (06:01)
[2017-05-08] MEDS ORDERED: METOCLOPRAMIDE HCL INJECTION 10 MG/2 ML VIAL ONE (06:15)
[2017-05-08] MEDS ORDERED: GLYCERIN 1 RECTAL SUPPOSITORY, ADULT PR ONE (06:19)
[2017-05-08] MEDS ORDERED: GLYCERIN 1 RECTAL SUPPOSITORY, ADULT RC ONE (06:45)
[2017-05-08] MEDS ORDERED: DEXTROSE 10%-WATER - 1,000 ML IV SCH (06:45)
[2017-05-08] MEDS ORDERED: D5-1/2NS+40 MEQ KCL - 40 MEQ/1,000 ML INFUS.BAG IV SCH ×2 (08:30→10:27)
[2017-05-08 09:13] LABS: BASO % 0.2 % (0-2.0); HEMATOCRIT 41.2 % (32.4-45.2); HEMOGLOBIN 12.9 GM/dL (10.7-15.3); LYMPH % 14.1 % (8-40); MCH 28.7 pg (25.7-33.7); MCHC 31.3 g/dl (32.0-36.0); MEAN CELL VOLUME 91.8 fl (80-96); MEAN PLT VOLUME 9.6 fl (7.5-11.1); MONO % 6.4 % (3.8-10.2); NEUT % 79.3 % (42.8-82.8); PLATELET COUNT 340 K/MM3 (134-434); RBC 4.49 M/mm3 (3.60-5.2); WHITE BLOOD COUNT 21.7 K/mm3 (4.0-10.0)
[2017-05-08 09:33] LABS: ALBUMIN 3.6 g/dl (3.4-5.0); ANION GAP 16 (8-16); BILIRUBIN,TOTAL 0.9 mg/dL (0.2-1.0); BLOOD UREA NITROGEN 21 mg/dL (7-18); CALCIUM 8.6 mg/dL (8.5-10.1); CHLORIDE 107 mmol/L (98-107); CO2 15 mmol/L (21-32); CREATININE 0.8 mg/dL (0.55-1.02); GLUCOSE,RANDOM 152 mg/dL (74-106); PHOSPHOROUS 2.8 mg/dL (2.5-4.9); POTASSIUM 4.1 mmol/L (3.5-5.1); SGOT/AST 8 U/L (15-37); SGPT/ALT 21 U/L (12-78); SODIUM 138 mmol/L (136-145); TOT PROT 6.8 g/dl (6.4-8.2)
[2017-05-08 09:34] LABS: ALK PHOS 77 U/L (45-117)
[2017-05-08] MEDS ORDERED: MUPIROCIN 2% TOPICAL OINTMENT FOR DECOLONIZATION NS SCH (10:00)
--- NOTE | 2017-05-08 10:01 | HP ---
<Celso Lyons - Last Filed: 05/08/17 10:07> CHIEF COMPLAINT: nausea, vomiting, constipation, "dka" HISTORY OF PRESENT ILLNESS: 31 y/o F w/PMH of IDDM, HTN, hypothyroidism, anxiety, depression, bipolar, presented to the ER due to "dka" as per pt. Pt's mental status is not at baseline and is slow to speak and has some difficulty remembering history because she is "out of it" at the moment due to her symptoms. Pt states she has been vomiting (non-bloody) over the past week and has been constipated for weeks now. She began feeling much worse yesterday which prompted her to come to the ER. She tried giving herself an enema yesterday to relieve the constipation but began to feel nauseous and vomited soon after. She states she had a BM today but still feels as though she is constipated. She notes that her abdomen has been distended from constipation but was unable to give a timeframe of the distension. According to chart records pt had BGM of 300-399 at home and EMS had reading of 422. She states the last time she had DKA was years ago. She states she has been compliant with her insulin therapy "for the most part". She also states that due to her recent diagnosis of depression and bipolar ( approximately 1 month ago) she was started on klonopin and lamictal and due to the depression she has been non-compliant with her thyroid medication. Pt states she was taking pain meds for back issues but has not taken any pain meds in weeks. Further history was difficult to obtain as pt has poor mentation currently. ER course was notable for: (1) Insulin drip, D10W (discontinued), (2) Miralax, lactulose, protonix, famotidine, zofran (3) Abd/Pelvis CT Recent Travel: denies PAST MEDICAL HISTORY: IDDM, HTN, hypothyroidism, anxiety, depression, bipolar PAST SURGICAL HISTORY: L5S1 discectomy Social History: Smoking: current everyday smoker (1/2ppd) Drugs: Marijuana Family History: No hx of diabetes in family Allergies No Known Drug Allergies Allergy (Verified 05/08/17 02:15) diphenhydramine HCl [From Benadryl] Adverse Reaction (Verified 05/08/17 01:52) SKIN "CRAWLING' erythromycin base Adverse Reaction (Verified 05/08/17 01:52) Nausea HOME MEDICATIONS: Home Medications Medication Instructions Recorded Baclofen 10 mg PO DAILY 05/08/17 Clonazepam [Klonopin] 2 mg PO DAILY 05/08/17 Fluoxetine HCl [Prozac] 10 mg PO DAILY 05/08/17 Insulin (Levemir) [Levemir Vial] 22 unit SQ DAILY 05/08/17 Lamotrigine [Lamictal] 25 mg PO DAILY 05/08/17 Levothyroxine [Synthroid -] 50 mcg PO DAILY 05/08/17 Ramipril [Altace] 10 mg PO DAILY 05/08/17 Trazodone HCl 300 mg PO DAILY 05/08/17 REVIEW OF SYSTEMS CONSTITUTIONAL: Absent: fever, chills CARDIOVASCULAR: Absent: chest pain RESPIRATORY: Absent: cough, shortness of breath GASTROINTESTINAL: +abd pain, abd distension, nausea, vomiting, constipation GENITOURINARY: Absent: dysuria MUSCULOSKELETAL: +back pain (chronic) NEUROLOGIC: +poor mentation ("i feel out of it" and difficulty recalling history ) Further ROS difficult to obtain due to poor mentation. PHYSICAL EXAMINATION Vital Signs - 24 hr 05/08/17 05/08/17 05/08/17 00:39 05:22 07:55 Temperature 97.5 F L Pulse Rate 100 H Pulse Rate [ 88 Apical] Respiratory 20 16 Rate Blood Pressure 144/102 Blood Pressure 125/84 [Left Arm] O2 Sat by Pulse 100 99 99 Oximetry (%) GENERAL: Awake, alert, and oriented. Poor mentation. Slow to remember history of present illness and slow to speak. HEAD: Normal with no signs of trauma. EYES: extraocular movements intact, sclera anicteric, conjunctiva clear. No lid lag. EARS, NOSE, THROAT: dry mucous membranes LUNGS: Auscultated anteriorly - CTA b/l HEART: Regular rate and rhythm, normal S1 and S2 without murmur ABDOMEN: +abd distension, +abd pain with light palpation in all quadrants, bowel sounds present in all quadrants. MUSCULOSKELETAL: Normal range of motion at all joints. No bony deformities or tenderness. No CVA tenderness. LOWER EXTREMITIES: 2+ pulses, warm, well-perfused. No calf tenderness. No peripheral edema. NEUROLOGICAL: Slow speech. Poor mentation. Has difficulty recalling history. PSYCHIATRIC: Cooperative. Good eye contact. SKIN: Warm, dry Laboratory Results - last 24 hr 05/08/17 05/08/17 05/08/17 01:00 01:00 01:00 WBC 23.4 H D RBC 4.67 Hgb 13.6 Hct 43.0 MCV 92.1 MCH 29.1 MCHC 31.6 L RDW 15.8 H D Plt Count 340 D MPV 10.2 Neutrophils % 85.1 H Lymphocytes % 8.5 D Monocytes % 6.3 Eosinophils % 0.0 D Basophils % 0.1 PT with INR 10.80 INR 0.96 PTT (Actin FS) 31.3 VBG pH POC VBG pCO2 POC VBG pO2 Mixed VBG HCO3 Sodium Potassium Chloride Carbon Dioxide Anion Gap BUN Creatinine Creat Clearance w eGFR POC Glucometer Random Glucose Lactic Acid Calcium Phosphorus Magnesium Total Bilirubin AST ALT Alkaline Phosphatase Creatine Kinase Troponin I Total Protein Albumin Lipase Serum , Qual Negative Urine Color Urine Appearance Urine pH Ur Specific [place] Urine Protein Urine Glucose (UA) Urine Ketones Urine Blood Urine Nitrite Urine Bilirubin Urine Urobilinogen Ur Leukocyte Esterase Opiates Screen Methadone Screen Barbiturate Screen Phencyclidine Screen Ur Amphetamines Screen MDMA (Ecstasy) Screen Benzodiazepines Screen Cocaine Screen U Marijuana (THC) Screen Acetone, Qual 05/08/17 05/08/17 05/08/17 01:00 01:00 01:00 WBC RBC Hgb Hct MCV MCH MCHC RDW Plt Count MPV Neutrophils % Lymphocytes % Monocytes % Eosinophils % Basophils % PT with INR INR PTT (Actin FS) VBG pH 7.21 L* D POC VBG pCO2 27.1 L D POC VBG pO2 72.1 H Mixed VBG HCO3 10.5 L* Sodium 135 L Potassium 4.6 Chloride 100 Carbon Dioxide 11 L Anion Gap 24 H BUN 23 H Creatinine 0.9 Creat Clearance w eGFR > 60 POC Glucometer Random Glucose 413 H* Lactic Acid 2.0 Calcium 9.1 Phosphorus 4.8 Magnesium 2.0 Total Bilirubin 1.3 H D AST 11 L ALT 19 Alkaline Phosphatase 91 Creatine Kinase 93 Troponin I < 0.02 Total Protein 7.6 Albumin 4.2 Lipase 30 L Serum , Qual Urine Color Urine Appearance Urine pH Ur Specific [place] Urine Protein Urine Glucose (UA) Urine Ketones Urine Blood Urine Nitrite Urine Bilirubin Urine Urobilinogen Ur Leukocyte Esterase Opiates Screen Methadone Screen Barbiturate Screen Phencyclidine Screen Ur Amphetamines Screen MDMA (Ecstasy) Screen Benzodiazepines Screen Cocaine Screen U Marijuana (THC) Screen Acetone, Qual Positive large 3+ H 05/08/17 05/08/17 05/08/17 03:29 03:29 05:14 WBC RBC Hgb Hct MCV MCH MCHC RDW Plt Count MPV Neutrophils % Lymphocytes % Monocytes % Eosinophils % Basophils % PT with INR INR PTT (Actin FS) VBG pH POC VBG pCO2 POC VBG pO2 Mixed VBG HCO3 Sodium Potassium Chloride Carbon Dioxide Anion Gap BUN Creatinine Creat Clearance w eGFR POC Glucometer [phone] Random Glucose Lactic Acid Calcium Phosphorus Magnesium Total Bilirubin AST ALT Alkaline Phosphatase Creatine Kinase Troponin I Total Protein Albumin Lipase Serum , Qual Urine Color Ltyellow Urine Appearance Clear Urine pH 5.0 Ur Specific [place] 1.017 Urine Protein Negative Urine Glucose (UA) 3+ H Urine Ketones 2+ H Urine Blood Negative Urine Nitrite Negative Urine Bilirubin Negative Urine Urobilinogen Negative Ur Leukocyte Esterase Negative Opiates Screen Positive Methadone Screen Negative Barbiturate Screen Negative Phencyclidine Screen Negative Ur Amphetamines Screen Negative MDMA (Ecstasy) Screen Negative Benzodiazepines Screen Negative Cocaine Screen Negative U Marijuana (THC) Screen Positive Acetone, Qual Imaging: Abd/Pelvis CT: Pending official read. Large amounts of stool present in lower GI tract. Micro: UCx: pending Active Medications Chlorhexidine Gluconate (Hibiclens For Decolonization -) 1 applic TP HS [facility] Clonazepam (Klonopin -) 2 mg PO DAILY [facility] Fluoxetine HCl (Prozac -) 10 mg PO DAILY [facility] Insulin Human Regular 100 (units/ Sodium Chloride) 100 mls @ 5.35 mls/hr IVPB TITR DULCE MARIA; 0.1 UNITS/KG/HR PRN Reason: Protocol Last Admin: 05/08/17 03:28 Dose: 0.1 units/kg/hr, 5.35 mls/hr Dextrose/Sodium Chloride (D5-1/2ns+40 Meq Kcl -) 40 meq in 1,000 mls @ 100 mls/ hr IV ASDIR [facility] Last Admin: 05/08/17 08:48 Dose: 100 mls/hr Lamotrigine (Lamictal -) 50 mg PO DAILY [facility] Levothyroxine Sodium (Synthroid -) 50 mcg PO DAILY@0700 [facility] Mupirocin (Bactroban Ointment (For Decolonization) -) 1 applic NS BID [facility] Stop: 05/13/17 09:59 ASSESSMENT/PLAN: 31 y/o F w/PMH of IDDM, HTN, hypothyroidism, anxiety, depression, bipolar, presented to the ER due to "dka" as per pt. Pt found to have random glucose of 413, VBG pH of 7.21, ketones in urine, anion gap of 24, serum bicarb of 11. Pt admitted to ICU for DKA. -DKA secondary to likely non-compliance of insulin therapy - Insulin drip, D5-1/2NS + 40 meq KCl @ 100 ml/hr, zofran for nausea - Check BMP q2h until gap closes. Will change to q4-6h once pt is stable. - BGMs q2h - Monitor potassium, replete w/goal of 4-5 mEq/L - When gap closes, give diet to pt, overlap with long acting insulin with drip for 2 hours after eating. (-Home dose of lantus is 22 units qhs as per pt) - A1C is 10.2 - Endocrine consulted - Serum osmolality is ~300 on admission (>320 osmolality, pH >7.3, low to no ketones in HHS) -Constipation - likely secondary to opiate use. Pt states she has not taken pain meds for her back in weeks but according to charts mother thinks she may be taking oxycodone. - Pt's Utox positive for opiates but collected after being morphine in ER - f/u abd/pelvis CT - GI consulted (Dr. Jarrett as pt was seen by him in the past) due to large amounts of stool. Pt also still constipated despite being given miralax, lactulose, glycerin suppository in ER and fleet enema done yesterday at home. -Hypothyroidism - start on home med: synthroid 50 mcg qd po -if unable to tolerate PO can give 25 mcg IV qd -Anxiety, depression, bipolar d/o - home meds: fluoxetine 10 mg po qd, klonopin 2mg po qd, lamictal 50 mg po qd -DVT ppx - Heparin 5000 units sq q8h -FEN - D5-1/2NS + 40 meq KCl @ 100 ml/hr - Monitor electrolytes. While on insulin drip goal K is 4-5. Pseudohyponatremia due to hyperglycemia (corrected Na is: 140) - NPO for now. Once gap closes attempt to feed patient. -Dispo: - Admit to ICU Visit type - Emergency Visit Emergency Visit: Yes ED Registration Date: 05/08/17 Care time: The patient presented to the Emergency Department on the above date and was hospitalized for further evaluation of their emergent condition. - New Patient This patient is new to me today: Yes Date on this admission: 05/08/17 - Critical Care Critical Care patient: Yes Total Critical Care Time (in minutes): 40 Critical Care Statement: The care of this patient involved high complexity decision making to prevent further life threatening deterioration of the patient 's condition and/or to evaluate & treat vital organ system(s) failure or risk of failure. <Tye Spivey - Last Filed: 05/08/17 10:15> Patient has been seen and examined with the resident. Patient is being admitted for DKA, to ICU for further management. will keep the patient NPO for now, IVF D51/2 with KCL 40, accu check with sliding scale alternating with CMP with mag and phos every 4 hrs. Will continue her psych. meds.will get retail office associate to see her.
[2017-05-08] MEDS ORDERED: clonazePAM 0.5 MG TABLET ONE (10:04)
[2017-05-08] MEDS: clonazePAM 2 MG TABLET PO SCH (10:12)
[2017-05-08] MEDS: lamoTRIgine 25 MG TABLET PO SCH (10:12)
[2017-05-08] MEDS: FLUoxetine HCL 10 MG CAPSULE (FP) PO SCH (10:12)
[2017-05-08] MEDS: LEVOTHYROXINE NA 50 MCG TABLET (FP) PO SCH (10:12)
[2017-05-08] MEDS: HEPARIN NA (PORCINE) 5,000 UNITS/ML 1ML VIAL SQ SCH ×2 (10:12→18:29)
[2017-05-08] MEDS: D5-1/2NS+20 MEQ KCL - 20 MEQ/1,000 ML INFUS.BAG IV SCH (11:16)
[2017-05-08 11:22] LABS: ANION GAP 10 (8-16); BLOOD UREA NITROGEN 20 mg/dL (7-18); CALCIUM 8.4 mg/dL (8.5-10.1); CHLORIDE 109 mmol/L (98-107); CO2 19 mmol/L (21-32); CREATININE 0.7 mg/dL (0.55-1.02); GLUCOSE,RANDOM 99 mg/dL (74-106); SODIUM 138 mmol/L (136-145)
[2017-05-08 11:41] LABS: POTASSIUM 4.4 mmol/L (3.5-5.1)
--- NOTE | 2017-05-08 12:49 | EKG ---
Test Reason : Blood Pressure : / mmHG Vent. Rate : 099 BPM Atrial Rate : 099 BPM P-R Int : 144 ms QRS Dur : 076 ms QT Int : 374 ms P-R-T Axes : 042 030 031 degrees QTc Int : 479 ms NORMAL SINUS RHYTHM T WAVE ABNORMALITY, CONSIDER ANTERIOR ISCHEMIA ABNORMAL ECG WHEN COMPARED WITH ECG OF 27-OCT-2015 04:31, T WAVE INVERSION NOW EVIDENT IN ANTERIOR LEADS Confirmed by Kun Etienne ([id number]) on 05/08/2017 12:48:46 PM Referred By: Confirmed By:Kun Etienne
[2017-05-08 13:48] LABS: ANION GAP 4 (8-16); BLOOD UREA NITROGEN 18 mg/dL (7-18); CALCIUM 8.6 mg/dL (8.5-10.1); CHLORIDE 109 mmol/L (98-107); CO2 26 mmol/L (21-32); CREATININE 0.7 mg/dL (0.55-1.02); GLUCOSE,RANDOM 86 mg/dL (74-106); PHOSPHOROUS 2.1 mg/dL (2.5-4.9); POTASSIUM 4.2 mmol/L (3.5-5.1); SODIUM 139 mmol/L (136-145)
[2017-05-08] MEDS ORDERED: DEXTROSE 50%-WATER - 25 GM/50 ML VIAL ONE ×2 (15:43→22:16)
[2017-05-08] MEDS ORDERED: DEXTROSE 50%-WATER 25 GM/50 ML DISP.SYRIN ONE (15:44)
[2017-05-08] MEDS ORDERED: DEXTROSE 50%-WATER - 25 GM/50 ML VIAL IVPUSH ONE ×2 (15:48→22:00)
--- NOTE | 2017-05-08 16:06 | CONSULT ---
Consult Consult Specialty:: Endocrinology Referred by:: Dr Spivey Reason for Consultation:: DKA - History of Present Illness Chief Complaint: Abd pain, N/V History of Present Illness: This is a 31 y/o F with h/o T1DM since age 12, last DKA a few years ago, no hospitalization for hypoglycemia, HTN, hypothyroidism, anxiety, depression, bipolar disorder diagnosed recently, presented to the ER due to "dka" as per pt. Pt's mental status was not at baseline and was slow to speak and has some difficulty remembering history because she is "out of it" at the moment due to her symptoms. Pt stated she has been vomiting (non-bloody) over the past week and has been constipated for weeks now. Pt had taken about 20 tabs of Oxycodone in the last few days.She began feeling much worse yesterday which prompted her to come to the ER. She tried giving herself an enema yesterday to relieve the constipation but began to feel nauseous and vomited soon after. She states she had a BM today but still feels as though she is constipated. Pt found to be in DKA with 422. She was treated with Insulin drip and hydration with resolution of acidosis. She states the last time she had DKA was years ago. She states she has been compliant with her insulin therapy "for the most part". Her Insulin regimen consists of Levemir 22 units BID and Novolog 5 to 8 units TID with meals. She has not been checking her blood sugar at home since she was diagnosed with Bipolar disorder. Last BGM was 59 so pt was given an amp of D50 and Insulin drip was stopped. Pt currently awake, alert, feels better but still bloated. - History Source History Provided By: Patient, Family Member, Medical Record - Past Medical History Cardio/Vascular: Yes: HTN Gastrointestinal: Yes: GERD ...LMP: 12/31/13 Psych: Yes: Anxiety, Bipolar Endocrine: Yes: Diabetes Mellitus, Hypothyroidism - Past Surgical History Past Surgical History: Yes: None - Alcohol/Substance Use Hx Alcohol Use: No History of Substance Use: reports: Heroin, Marijuana (occasionally) - Smoking History Smoking history: Current every day smoker Have you smoked in the past 12 months: No Aproximately how many cigarettes per day: 9 - Social History Usual Living Arrangement: With Parent ADL: Independent Home Medications - Allergies Allergies/Adverse Reactions: Allergies Allergy/AdvReac Type Severity Reaction Status Date / Time No Known Drug Allergies Allergy Verified 05/08/17 02:15 diphenhydramine HCl AdvReac Verified 05/08/17 01:52 [From Benadryl] erythromycin base AdvReac Nausea Verified 05/08/17 01:52 - Home Medications Home Medications: Ambulatory Orders Baclofen 10 mg PO DAILY 05/08/17 Clonazepam [Klonopin] 2 mg PO DAILY 05/08/17 Fluoxetine HCl [Prozac] 10 mg PO DAILY 05/08/17 Insulin (Levemir) [Levemir Vial] 22 unit SQ DAILY 05/08/17 Lamotrigine [Lamictal] 50 mg PO DAILY 05/08/17 Levothyroxine [Synthroid -] 50 mcg PO DAILY 05/08/17 Ramipril [Altace] 10 mg PO DAILY 05/08/17 Trazodone HCl 300 mg PO DAILY 05/08/17 Family Disease History - Family Disease History Family Disease History: Heart Disease: Father (CAD,alcohol), Mother (HTN) Other Family History: No family h/o DM Review of Systems - Review of Systems Constitutional: reports: Loss of Appetite, Malaise Eyes: reports: No Symptoms HENT: reports: No Symptoms Neck: reports: No Symptoms Cardiovascular: reports: No Symptoms Respiratory: reports: No Symptoms Gastrointestinal: reports: Bloating, Nausea Genitourinary: reports: No Symptoms Musculoskeletal: reports: No Symptoms Neurological: reports: No Symptoms Endocrine: reports: No Symptoms Physical Exam Vital Signs: Vital Signs Temperature 97.5 F L 05/08/17 00:39 Pulse Rate 91 H 05/08/17 15:52 Respiratory Rate 16 05/08/17 15:52 Blood Pressure 121/86 05/08/17 15:52 O2 Sat by Pulse Oximetry (%) 99 05/08/17 15:52 Constitutional: Yes: Anxious, Mild Distress Eyes: Yes: Conjunctiva Clear, EOM Intact HENT: Yes: Atraumatic, Normocephalic Neck: Yes: Supple, Trachea Midline Cardiovascular: Yes: Regular Rate and Rhythm Respiratory: Yes: Regular, CTA Bilaterally Gastrointestinal: Yes: Normal Bowel Sounds, Soft Extremities: Yes: WNL Edema: No Neurological: Yes: Alert, Oriented Labs: CBC, BMP 05/08/17 08:31 05/08/17 13:10 Problem List - Problems (1) DKA (diabetic ketoacidoses) Code(s): E13.10 - OTH DIABETES MELLITUS WITH KETOACIDOSIS WITHOUT COMA (2) DM Diabetes mellitus type 1 Code(s): E10.9 - TYPE 1 DIABETES MELLITUS WITHOUT COMPLICATIONS (3) Hypothyroidism Code(s): E03.9 - HYPOTHYROIDISM, UNSPECIFIED Assessment/Plan A/P DKA T1DM Hypothyroidism Constipation Bipolar Disorder Off Insulin drip BGM after 15mins Levemir 15 units stat once blood sugar >100 and 15 units daily Repeat D50 if blood repeat blood sugar <70 BGM Q 4 hrs Decrease D5 1/2 NS with 20 KCl to 125 an hour once blood sugar rises to >200 CMP at 6 p.m. CMP, Mg Po4 in a.m. Replace electrolytes as necessary Discussed with housestaff. GI consult called. Will f/u
--- NOTE | 2017-05-08 16:13 | CONSULT ---
Consult Consult Specialty:: PULM/CCM Referred by:: ER Reason for Consultation:: DKA - History of Present Illness Chief Complaint: elevated blood sugar / bloating History of Present Illness: 31 F, known to me from previous admissions. DM1 since age 12, DKA, HTN, hypothyroidism, anxiety, depression, and bipolar disorder. Admitted via the ER due to elevated FBS and change in mental statsu. No travel history, sick contacts, or clear febrile illness. Found to be in DKA by lab criteria. Seen in the ER. Remains on IV insulin drip at 2 units per hour. Anion gap noted to be closing. CXR: normal CT Ab/Pelvis : read is pending. - History Source History Provided By: Patient, Medical Record Limitations to Obtaining History: Poor Historian - Past Medical History Cardio/Vascular: Yes: HTN Gastrointestinal: Yes: GERD ...LMP: 12/31/13 Psych: Yes: Anxiety, Bipolar Endocrine: Yes: Diabetes Mellitus, Hypothyroidism - Past Surgical History Past Surgical History: Yes: None - Alcohol/Substance Use Hx Alcohol Use: No History of Substance Use: reports: Heroin, Marijuana (occasionally) - Smoking History Smoking history: Current every day smoker Have you smoked in the past 12 months: No Aproximately how many cigarettes per day: 9 - Social History Usual Living Arrangement: With Parent ADL: Independent Home Medications - Allergies Allergies/Adverse Reactions: Allergies Allergy/AdvReac Type Severity Reaction Status Date / Time No Known Drug Allergies Allergy Verified 05/08/17 02:15 diphenhydramine HCl AdvReac Verified 05/08/17 01:52 [From Benadryl] erythromycin base AdvReac Nausea Verified 05/08/17 01:52 - Home Medications Home Medications: Ambulatory Orders Baclofen 10 mg PO DAILY 05/08/17 Clonazepam [Klonopin] 2 mg PO DAILY 05/08/17 Fluoxetine HCl [Prozac] 10 mg PO DAILY 05/08/17 Insulin (Levemir) [Levemir Vial] 22 unit SQ DAILY 05/08/17 Lamotrigine [Lamictal] 50 mg PO DAILY 05/08/17 Levothyroxine [Synthroid -] 50 mcg PO DAILY 05/08/17 Ramipril [Altace] 10 mg PO DAILY 05/08/17 Trazodone HCl 300 mg PO DAILY 05/08/17 Family Disease History - Family Disease History Family Disease History: Heart Disease: Father (CAD,alcohol), Mother (HTN) Review of Systems - Review of Systems Constitutional: reports: Lethargy, Loss of Appetite, Malaise, Weakness. denies : Chills, Fever, Night Sweats, Unintentional Wgt. Loss Eyes: reports: No Symptoms HENT: reports: No Symptoms Neck: reports: No Symptoms Cardiovascular: denies: Chest Pain, Edema, Palpitations, Shortness of Breath Respiratory: denies: Cough, Hemoptysis, Orthopnea, Snoring, SOB, SOB on Exertion , Wheezing Gastrointestinal: reports: Bloating. denies: Dysphagia, Melena, Rectal Bleeding , Vomiting, Vomiting Blood Genitourinary: reports: No Symptoms Breasts: reports: No Symptoms Reported Musculoskeletal: reports: No Symptoms Integumentary: reports: No Symptoms Neurological: reports: No Symptoms Endocrine: reports: No Symptoms Hematology/Lymphatic: reports: No Symptoms Psychiatric: reports: No Symptoms Physical Exam Vital Signs: Vital Signs Temperature 97.5 F L 05/08/17 00:39 Pulse Rate 91 H 05/08/17 15:52 Respiratory Rate 16 05/08/17 15:52 Blood Pressure 121/86 05/08/17 15:52 O2 Sat by Pulse Oximetry (%) 99 05/08/17 15:52 Constitutional: Yes: No Distress, Thin Eyes: Yes: Conjunctiva Clear, EOM Intact HENT: Yes: Atraumatic, Normocephalic Neck: Yes: Supple, Trachea Midline Cardiovascular: Yes: Regular Rate and Rhythm Respiratory: Yes: CTA Bilaterally Gastrointestinal: Yes: Normal Bowel Sounds, Soft ...Rectal Exam: Yes: Deferred Renal/: Yes: WNL Musculoskeletal: Yes: WNL Edema: No Peripheral Pulses WNL: Yes Integumentary: Yes: WNL Neurological: Yes: Alert, Oriented ...Motor Strength: WNL Psychiatric: Yes: WNL, Alert, Oriented Labs: CBC, BMP 05/08/17 08:31 05/08/17 13:10 Assessment/Plan IMP: DKA HTN Bipolar Non-specific abdominal symptoms PLAN: Insulin coverage per Endocrine Follow BGM Follow official read of CT Abdomen/Pelvis O2 as needed VTE prophylaxis Medical floor once off IV Insulin drip. Dr Kern Critical care time spent in reviewing chart, evaluating patient and formulating plan - 36 minutes.
[2017-05-08] MEDS ORDERED: INSULIN DETEMIR 100 UNITS/ML MDV SQ ONE ×2 (16:14→16:48)
[2017-05-08 17:08] LABS: ANION GAP 7 (8-16); BLOOD UREA NITROGEN 16 mg/dL (7-18); CHLORIDE 109 mmol/L (98-107); CO2 22 mmol/L (21-32); CREATININE 0.7 mg/dL (0.55-1.02); GLUCOSE,RANDOM 169 mg/dL (74-106); POTASSIUM 3.9 mmol/L (3.5-5.1); SODIUM 138 mmol/L (136-145)
[2017-05-08] MEDS: INSULIN SLIDING SCALE (NOVOLOG) 1 VIAL SQ SCH ×2 (18:10→22:02)
[2017-05-08] MEDS ORDERED: HEPARIN NA (PORCINE) 5,000 UNITS/ML 1ML VIAL ONE (18:20)
[2017-05-08 21:07] VITALS: BMI 18.7
[2017-05-08] MEDS ORDERED: CHLORHEXIDINE GLUCONATE 4% CLEANSER FOR DECOLONIZATION TP SCH (22:00)
[2017-05-08 22:33] LABS: ANION GAP 8 (8-16); BLOOD UREA NITROGEN 15 mg/dL (7-18); CALCIUM 8.4 mg/dL (8.5-10.1); CHLORIDE 110 mmol/L (98-107); CO2 22 mmol/L (21-32); CREATININE 0.6 mg/dL (0.55-1.02); MAGNESIUM 1.7 mg/dL (1.8-2.4); PHOSPHOROUS 1.6 mg/dL (2.5-4.9); POTASSIUM 3.6 mmol/L (3.5-5.1); SODIUM 140 mmol/L (136-145)
[2017-05-08 22:43] LABS: GLUCOSE,RANDOM 47 mg/dL (74-106)
[2017-05-09] MEDS: INSULIN SLIDING SCALE (NOVOLOG) 1 VIAL SQ SCH ×5 (01:12→22:28)
[2017-05-09] MEDS: HEPARIN NA (PORCINE) 5,000 UNITS/ML 1ML VIAL SQ SCH ×3 (02:17→17:55)
[2017-05-09] MEDS: D5-1/2NS+20 MEQ KCL - 20 MEQ/1,000 ML INFUS.BAG IV SCH ×3 (04:47→20:35)
--- NOTE | 2017-05-09 04:52 | PN ---
Physical Exam: SUBJECTIVE: Patient seen and examined at bedside. her blood sugar was labile last night. feeling better today. denies any fever, chills, N/V/D/C. feeling some med epigastric discomfort other choudhury she is doing fine OBJECTIVE: Vital Signs Period Temp Pulse Resp BP Sys/Arce Pulse Ox Last 24 Hr 97.8 F-98.7 F 73-96 16-18 111-141/68-86 99-99 GENERAL: Awake, alert, and oriented. Poor mentation. Slow to remember history of present illness and slow to speak. HEAD: Normal with no signs of trauma. EYES: extraocular movements intact, sclera anicteric, conjunctiva clear. No lid lag. EARS, NOSE, THROAT: dry mucous membranes LUNGS: Auscultated anteriorly - CTA b/l HEART: Regular rate and rhythm, normal S1 and S2 without murmur ABDOMEN: +abd distension, +abd pain with light palpation in all quadrants, bowel sounds present in all quadrants. MUSCULOSKELETAL: Normal range of motion at all joints. No bony deformities or tenderness. No CVA tenderness. LOWER EXTREMITIES: 2+ pulses, warm, well-perfused. No calf tenderness. No peripheral edema. NEUROLOGICAL: Slow speech. Poor mentation. Has difficulty recalling history. PSYCHIATRIC: Cooperative. Good eye contact. SKIN: Warm, dry Laboratory Results - last 24 hr 05/08/17 05/08/17 05/08/17 05:14 08:31 08:31 WBC 21.7 H RBC 4.49 Hgb 12.9 Hct 41.2 MCV 91.8 MCH 28.7 MCHC 31.3 L RDW 16.0 H Plt Count 340 MPV 9.6 Neutrophils % 79.3 Lymphocytes % 14.1 D Monocytes % 6.4 Eosinophils % 0.0 Basophils % 0.2 Sodium 138 Potassium 4.1 Chloride 107 Carbon Dioxide 15 L Anion Gap 16 BUN 21 H Creatinine 0.8 Creat Clearance w eGFR > 60 POC Glucometer 254.52041 Random Glucose 152 H Hemoglobin A1c % Calcium 8.6 Phosphorus 2.8 Magnesium 2.0 Total Bilirubin 0.9 D AST 8 L ALT 21 Alkaline Phosphatase 77 Total Protein 6.8 Albumin 3.6 TSH 05/08/17 05/08/17 05/08/17 08:31 09:05 10:09 WBC RBC Hgb Hct MCV MCH MCHC RDW Plt Count MPV Neutrophils % Lymphocytes % Monocytes % Eosinophils % Basophils % Sodium Potassium Chloride Carbon Dioxide Anion Gap BUN Creatinine Creat Clearance w eGFR POC Glucometer 152.53919 129.52221 Random Glucose Hemoglobin A1c % 10.2 H Calcium Phosphorus Magnesium Total Bilirubin AST ALT Alkaline Phosphatase Total Protein Albumin TSH 05/08/17 05/08/17 05/08/17 10:42 13:10 15:41 WBC RBC Hgb Hct MCV MCH MCHC RDW Plt Count MPV Neutrophils % Lymphocytes % Monocytes % Eosinophils % Basophils % Sodium 138 139 Potassium 4.4 4.2 Chloride 109 H 109 H Carbon Dioxide 19 L 26 Anion Gap 10 4 L BUN 20 H 18 Creatinine 0.7 0.7 Creat Clearance w eGFR POC Glucometer 59.54425 Random Glucose 99 86 Hemoglobin A1c % Calcium 8.4 L 8.6 Phosphorus 2.1 L Magnesium 2.0 Total Bilirubin AST ALT Alkaline Phosphatase Total Protein Albumin TSH 05/08/17 05/08/17 05/08/17 16:00 16:52 18:09 WBC RBC Hgb Hct MCV MCH MCHC RDW Plt Count MPV Neutrophils % Lymphocytes % Monocytes % Eosinophils % Basophils % Sodium 138 Potassium 3.9 Chloride 109 H Carbon Dioxide 22 Anion Gap 7 L BUN 16 Creatinine 0.7 Creat Clearance w eGFR POC Glucometer 186.28527 185.24347 Random Glucose 169 H Hemoglobin A1c % Calcium 8.0 L Phosphorus Magnesium Total Bilirubin AST ALT Alkaline Phosphatase Total Protein Albumin TSH 05/08/17 05/08/17 05/08/17 21:28 21:30 21:30 WBC RBC Hgb Hct MCV MCH MCHC RDW Plt Count MPV Neutrophils % Lymphocytes % Monocytes % Eosinophils % Basophils % Sodium 140 Potassium 3.6 Chloride 110 H Carbon Dioxide 22 Anion Gap 8 BUN 15 Creatinine 0.6 Creat Clearance w eGFR POC Glucometer 52 Random Glucose 47 L* Hemoglobin A1c % Calcium 8.4 L Phosphorus 1.6 L Magnesium 1.7 L Total Bilirubin AST ALT Alkaline Phosphatase Total Protein Albumin TSH 0.24 L 05/08/17 05/08/17 05/09/17 22:34 23:07 01:10 WBC RBC Hgb Hct MCV MCH MCHC RDW Plt Count MPV Neutrophils % Lymphocytes % Monocytes % Eosinophils % Basophils % Sodium Potassium Chloride Carbon Dioxide Anion Gap BUN Creatinine Creat Clearance w eGFR POC Glucometer 246 159 99 Random Glucose Hemoglobin A1c % Calcium Phosphorus Magnesium Total Bilirubin AST ALT Alkaline Phosphatase Total Protein Albumin TSH 05/09/17 03:27 WBC RBC Hgb Hct MCV MCH MCHC RDW Plt Count MPV Neutrophils % Lymphocytes % Monocytes % Eosinophils % Basophils % Sodium Potassium Chloride Carbon Dioxide Anion Gap BUN Creatinine Creat Clearance w eGFR POC Glucometer 62 Random Glucose Hemoglobin A1c % Calcium Phosphorus Magnesium Total Bilirubin AST ALT Alkaline Phosphatase Total Protein Albumin TSH Active Medications Generic Name Dose Route Start Last Admin Trade Name Freq PRN Reason Stop Dose Admin Clonazepam 2 mg 05/08/17 10:00 05/08/17 10:12 Klonopin - PO 2 mg DAILY DULCE MARIA Administration Fluoxetine HCl 10 mg 05/08/17 10:00 05/08/17 10:12 Prozac - PO 10 mg DAILY DULCE MARIA Administration Heparin Sodium (Porcine) 5,000 unit 05/08/17 10:15 05/09/17 02:17 Heparin - SQ 5,000 unit Q8H DULCE MARIA Administration Potassium Chloride/Dextrose/Sod Cl 20 meq in 1,000 mls @ 200 mls/hr 05/08/17 10:45 05/08/17 11:16 D5-1/2ns+20 Meq Kcl - IV 200 mls/hr ASDIR DULCE MARIA Administration Insulin Aspart 1 vial 05/08/17 18:00 05/09/17 01:12 Novolog Vial Sliding Scale - SQ Not Given Q4HPO [facility] Protocol Lamotrigine 50 mg 05/08/17 10:00 05/08/17 10:12 Lamictal - PO 50 mg DAILY DULCE MARIA Administration Levothyroxine Sodium 50 mcg 05/08/17 10:00 05/08/17 10:12 Synthroid - PO 50 mcg DAILY@0700 DULCE MARIA Administration Ondansetron HCl 4 mg 05/08/17 09:56 Zofran Injection IVPUSH Q8H PRN NAUSEA Imaging: Abd/Pelvis CT: Pending official read. Large amounts of stool present in lower GI tract. Micro: UCx: pending Active Medications Chlorhexidine Gluconate (Hibiclens For Decolonization -) 1 applic TP HS DULCE MARIA Clonazepam (Klonopin -) 2 mg PO DAILY DULCE MARIA Fluoxetine HCl (Prozac -) 10 mg PO DAILY DULCE MARIA Insulin Human Regular 100 (units/ Sodium Chloride) 100 mls @ 5.35 mls/hr IVPB TITR DULCE MARIA; 0.1 UNITS/KG/HR PRN Reason: Protocol Last Admin: 01/21/18 03:28 Dose: 0.1 units/kg/hr, 5.35 mls/hr Dextrose/Sodium Chloride (D5-1/2ns+40 Meq Kcl -) 40 meq in 1,000 mls @ 100 mls/ hr IV ASDIR [facility] Last Admin: 05/08/17 08:48 Dose: 100 mls/hr Lamotrigine (Lamictal -) 50 mg PO DAILY [facility] Levothyroxine Sodium (Synthroid -) 50 mcg PO DAILY@0700 [facility] Mupirocin (Bactroban Ointment (For Decolonization) -) 1 applic NS BID [facility] Stop: 05/13/17 09:59 ASSESSMENT/PLAN: 31 y/o F w/PMH of IDDM, HTN, hypothyroidism, anxiety, depression, bipolar, presented to the ER due to "dka" as per pt. Pt found to have random glucose of 413, VBG pH of 7.21, ketones in urine, anion gap of 24, serum bicarb of 11. Pt admitted to ICU for DKA. -DKA secondary to likely non-compliance of insulin therapy - Insulin drip, D5-1/2NS + 40 meq KCl @ 100 ml/hr, zofran for nausea - Check BMP q2h until gap closes. Will change to q4-6h once pt is stable. - BGMs q2h - Monitor potassium, replete w/goal of 4-5 mEq/L - When gap closes, give diet to pt, overlap with long acting insulin with drip for 2 hours after eating. (-Home dose of lantus is 22 units qhs as per pt) - A1C is 10.2 - Endocrine consulted - Serum osmolality is ~300 on admission (>320 osmolality, pH >7.3, low to no ketones in HHS) -Constipation - likely secondary to opiate use. Pt states she has not taken pain meds for her back in weeks but according to charts mother thinks she may be taking oxycodone. - Pt's Utox positive for opiates but collected after being morphine in ER - f/u abd/pelvis CT - GI consulted (Dr. Jarrett as pt was seen by him in the past) due to large amounts of stool. Pt also still constipated despite being given miralax, lactulose, glycerin suppository in ER and fleet enema done yesterday at home. -Hypothyroidism - start on home med: synthroid 50 mcg qd po -if unable to tolerate PO can give 25 mcg IV qd -Anxiety, depression, bipolar d/o - home meds: fluoxetine 10 mg po qd, klonopin 2mg po qd, lamictal 50 mg po qd -DVT ppx - Heparin 5000 units sq q8h -FEN - D5-1/2NS + 40 meq KCl @ 100 ml/hr - Monitor electrolytes. While on insulin drip goal K is 4-5. Pseudohyponatremia due to hyperglycemia (corrected Na is: 140) - NPO for now. Once gap closes attempt to feed patient. -Dispo: - Admit to ICU Visit type - Emergency Visit Emergency Visit: Yes ED Registration Date: 05/08/17 Care time: The patient presented to the Emergency Department on the above date and was hospitalized for further evaluation of their emergent condition. - New Patient This patient is new to me today: Yes Date on this admission: 05/09/17 - Critical Care Critical Care patient: No - Discharge Referral Referred to [facility] Med P.C.: No
[2017-05-09] MEDS ORDERED: DEXTROSE 50%-WATER 25 GM/50 ML DISP.SYRIN IVPUSH STA (05:04)
[2017-05-09] MEDS ORDERED: BACLOFEN 10 MG TABLET (FP) PO ONE (05:29)
[2017-05-09] MEDS ORDERED: DEXTROSE 50%-WATER - 25 GM/50 ML VIAL ONE (05:30)
[2017-05-09] MEDS: LEVOTHYROXINE NA 50 MCG TABLET (FP) PO SCH (06:14)
[2017-05-09 08:05] LABS: BASO % 0.4 % (0-2.0); EOS % 0.8 % (0-4.5); HEMATOCRIT 37.7 % (32.4-45.2); HEMOGLOBIN 12.3 GM/dL (10.7-15.3); LYMPH % 18.7 % (8-40); MCH 29.4 pg (25.7-33.7); MCHC 32.7 g/dl (32.0-36.0); MEAN CELL VOLUME 89.9 fl (80-96); MEAN PLT VOLUME 9.7 fl (7.5-11.1); MONO % 8.7 % (3.8-10.2); NEUT % 71.4 % (42.8-82.8); PLATELET COUNT 291 K/MM3 (134-434); RBC 4.19 M/mm3 (3.60-5.2); RDW 15.8 % (11.6-15.6); WHITE BLOOD COUNT 13.6 K/mm3 (4.0-10.0)
[2017-05-09] MEDS ORDERED: MAGNESIUM SULF 50% (8.12 MEQ/2 ML-1 GM VIAL) IVPB ONE ×2 (08:13→20:30)
[2017-05-09] MEDS ORDERED: NAPH,MB-DB/K PH,MBDB POWDER PACKET PO ONE ×3 (08:15→20:30)
[2017-05-09 08:24] LABS: ALBUMIN 3.3 g/dl (3.4-5.0); ANION GAP 9 (8-16); BLOOD UREA NITROGEN 12 mg/dL (7-18); CALCIUM 8.2 mg/dL (8.5-10.1); CHLORIDE 105 mmol/L (98-107); CO2 23 mmol/L (21-32); CREATININE 0.6 mg/dL (0.55-1.02); GLUCOSE,RANDOM 168 mg/dL (74-106); MAGNESIUM 1.7 mg/dL (1.8-2.4); SODIUM 137 mmol/L (136-145)
[2017-05-09] MEDS ORDERED: MAGNESIUM 1GM/D5W - 1 GM/100 ML IVPB IVPB ONE (08:30)
[2017-05-09] MEDS ORDERED: PT OWN MED DRAWER 7, Y5N ONE ×2 (10:05→15:06)
[2017-05-09] MEDS: clonazePAM 2 MG TABLET PO SCH (10:17)
[2017-05-09] MEDS: FLUoxetine HCL 10 MG CAPSULE (FP) PO SCH (10:17)
--- NOTE | 2017-05-09 10:48 | CON.GI ---
Consult Consult Specialty:: Constipation - History of Present Illness History of Present Illness: PER ED: The patient is a 31 year old female, with a significant past medical history of type I diabetes, hypertension, hypothyroidism, anxiety, and depression, who presents to the emergency department via EMS with, elevated glucose readings, abdominal pain, distension, constipation, and emesis. She reports blood glucose readings between 300-399. As per EMS, her glucose reading was 422. Patient reports giving herself an enema last night. She reports the nausea and vomiting after an enema. She reports significant abdominal pain wit distension. As per patients mother, she has only had water and Gatorade today, due to her symptoms. At the time of this encounter, the patient is not in distress, awake and alert. Has small watery stools w/o melena, or hematochezia. Reports abdominal pain on straining. No rectal, r anal pain. CT showed significant amount of stool in distal colon and rectum. 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, Marijuana (occasionally) - Smoking History Smoking history: Current every day smoker Have you smoked in the past 12 months: No Aproximately how many cigarettes per day: 9 - Social History Usual Living Arrangement: With Parent ADL: Independent Home Medications - Allergies Allergies/Adverse Reactions: Allergies Allergy/AdvReac Type Severity Reaction Status Date / Time No Known Drug Allergies Allergy Verified 05/08/17 02:15 diphenhydramine HCl AdvReac Verified 05/08/17 01:52 [From Benadryl] erythromycin base AdvReac Nausea Verified 05/08/17 01:52 - Home Medications Home Medications: Ambulatory Orders Baclofen 10 mg PO DAILY 05/08/17 Clonazepam [Klonopin] 2 mg PO DAILY 05/08/17 Fluoxetine HCl [Prozac] 10 mg PO DAILY 05/08/17 Insulin (Levemir) [Levemir Vial] 22 unit SQ DAILY 05/08/17 Lamotrigine [Lamictal] 50 mg PO DAILY 05/08/17 Levothyroxine [Synthroid -] 50 mcg PO DAILY 05/08/17 Ramipril [Altace] 10 mg PO DAILY 05/08/17 Trazodone HCl 300 mg PO DAILY 05/08/17 Family Disease History - Family Disease History Family Disease History: Heart Disease: Father (CAD,alcohol), Mother (HTN) Other Family History: No family h/o DM Review of Systems Findings/Remarks: As per HPI, H&P, Physical Exam-GI Vital Signs: Vital Signs Temperature 98.5 F 05/09/17 06:00 Pulse Rate 87 05/09/17 06:00 Respiratory Rate 18 05/09/17 06:00 Blood Pressure 142/74 05/09/17 06:00 O2 Sat by Pulse Oximetry (%) 99 05/08/17 20:03 Constitutional: Yes: No Distress Eyes: Yes: Conjunctiva Clear HENT: Yes: Atraumatic Neck: Yes: Supple Cardiovascular: Yes: Regular Rate and Rhythm Respiratory: Yes: Regular Gastrointestinal Inspection: Yes: Distention ...Auscultate: Yes: Normoactive Bowel Sounds ...Palpate: Yes: Tenderness. No: Firm/Rigid, Guarding Neurological: Yes: Alert, Oriented Labs: CBC, BMP 05/09/17 07:15 05/09/17 07:15 INR, PTT INR 0.96 (0.82-1.09) 05/08/17 01:00 Laboratory Results - last 24 hr 05/08/17 05/08/17 05/08/17 10:42 13:10 15:41 WBC RBC Hgb Hct MCV MCH MCHC RDW Plt Count MPV Neutrophils % Lymphocytes % Monocytes % Eosinophils % Basophils % Sodium 138 139 Potassium 4.4 4.2 Chloride 109 H 109 H Carbon Dioxide 19 L 26 Anion Gap 10 4 L BUN 20 H 18 Creatinine 0.7 0.7 POC Glucometer 59.73971 Random Glucose 99 86 Calcium 8.4 L 8.6 Phosphorus 2.1 L Magnesium 2.0 Albumin TSH 05/08/17 05/08/17 05/08/17 16:00 16:52 18:09 WBC RBC Hgb Hct MCV MCH MCHC RDW Plt Count MPV Neutrophils % Lymphocytes % Monocytes % Eosinophils % Basophils % Sodium 138 Potassium 3.9 Chloride 109 H Carbon Dioxide 22 Anion Gap 7 L BUN 16 Creatinine 0.7 POC Glucometer 186.20581 185.62537 Random Glucose 169 H Calcium 8.0 L Phosphorus Magnesium Albumin TSH 05/08/17 05/08/17 05/08/17 21:28 21:30 21:30 WBC RBC Hgb Hct MCV MCH MCHC RDW Plt Count MPV Neutrophils % Lymphocytes % Monocytes % Eosinophils % Basophils % Sodium 140 Potassium 3.6 Chloride 110 H Carbon Dioxide 22 Anion Gap 8 BUN 15 Creatinine 0.6 POC Glucometer 52 Random Glucose 47 L* Calcium 8.4 L Phosphorus 1.6 L Magnesium 1.7 L Albumin TSH 0.24 L 05/08/17 05/08/17 05/09/17 22:34 23:07 01:10 WBC RBC Hgb Hct MCV MCH MCHC RDW Plt Count MPV Neutrophils % Lymphocytes % Monocytes % Eosinophils % Basophils % Sodium Potassium Chloride Carbon Dioxide Anion Gap BUN Creatinine POC Glucometer 246 159 99 Random Glucose Calcium Phosphorus Magnesium Albumin TSH 05/09/17 05/09/17 05/09/17 03:27 05:00 06:19 WBC RBC Hgb Hct MCV MCH MCHC RDW Plt Count MPV Neutrophils % Lymphocytes % Monocytes % Eosinophils % Basophils % Sodium Potassium Chloride Carbon Dioxide Anion Gap BUN Creatinine POC Glucometer 62 80 197 Random Glucose Calcium Phosphorus Magnesium Albumin TSH 05/09/17 05/09/17 05/09/17 07:15 07:15 08:17 WBC 13.6 H D RBC 4.19 Hgb 12.3 Hct 37.7 MCV 89.9 MCH 29.4 MCHC 32.7 RDW 15.8 H Plt Count 291 MPV 9.7 Neutrophils % 71.4 Lymphocytes % 18.7 D Monocytes % 8.7 Eosinophils % 0.8 D Basophils % 0.4 Sodium 137 Potassium 4.0 Chloride 105 Carbon Dioxide 23 Anion Gap 9 BUN 12 Creatinine 0.6 POC Glucometer 159 Random Glucose 168 H Calcium 8.2 L Phosphorus 2.0 L Magnesium 1.7 L Albumin 3.3 L TSH Imaging - Results Cat Scan: Report Reviewed Problem List - Problems (1) Constipation Code(s): K59.00 - CONSTIPATION, UNSPECIFIED (2) Overflow diarrhea Code(s): R19.7 - DIARRHEA, UNSPECIFIED Assessment/Plan constipation in settings of uncontrolled DM, possible medications effect and electrolytes imbalance Tap water enemas until good return followed by Miralax tid, bid to allow for daily, or every other day bm. r/o diabetic gastropatresis correct electrolytes will follow
[2017-05-09] MEDS ORDERED: POLYETHYLENE GLYCOL 3350 255 GM BTL PO ONE (10:55)
[2017-05-09] MEDS ORDERED: INSULIN (NOVOLOG) ASPART 100 UNITS/ML 10ML VIAL ONE (11:43)
[2017-05-09] MEDS ORDERED: ACETAMINOPHEN 325 MG TABLET (FP) PO PRN (11:51)
[2017-05-09] MEDS: lamoTRIgine 25 MG TABLET PO SCH ×2 (12:01→22:25)
--- NOTE | 2017-05-09 12:51 | PN ---
Progress Note (short form) - Note Progress Note: C/o feeling the need to evacuate bowels but not able to do it BGM 50s in the morning Eating lunch now Vital Signs Period Temp Pulse Resp BP Sys/Arce Pulse Ox Last 24 Hr 97.8 F-98.7 F 73-91 16-18 111-155/68-104 99-99 PE: Aox3 Neck: Supple, No JVD HEENT: EOMI Lungs: CTA CVS: S1S2 Abd: Benign EXt: No edema Neuro: No focal deficit CMP Sodium 137 mmol/L (136-145) 05/09/17 07:15 Potassium 4.0 mmol/L (3.5-5.1) 05/09/17 07:15 Chloride 105 mmol/L (98-107) 05/09/17 07:15 Carbon Dioxide 23 mmol/L (21-32) 05/09/17 07:15 Anion Gap 9 (8-16) 05/09/17 07:15 BUN 12 mg/dL (7-18) 05/09/17 07:15 Creatinine 0.6 mg/dL (0.55-1.02) 05/09/17 07:15 Creat Clearance w eGFR > 60 (>60) 05/08/17 08:31 POC Glucometer 206 UNITS (80-120) 05/09/17 12:04 Random Glucose 168 mg/dL (74-106) H 05/09/17 07:15 Hemoglobin A1c % 10.2 % (4.8-6.0) H 05/08/17 08:31 Lactic Acid 2.0 mmol/L (0.0-2.0) 05/08/17 01:00 Calcium 8.2 mg/dL (8.5-10.1) L 05/09/17 07:15 Phosphorus 2.0 mg/dL (2.5-4.9) L 05/09/17 07:15 Magnesium 1.7 mg/dL (1.8-2.4) L 05/09/17 07:15 Total Bilirubin 0.9 mg/dL (0.2-1.0) D 05/08/17 08:31 AST 8 U/L (15-37) L 05/08/17 08:31 ALT 21 U/L (12-78) 05/08/17 08:31 Alkaline Phosphatase 77 U/L (45-117) 05/08/17 08:31 Creatine Kinase 93 IU/L (26-192) 05/08/17 01:00 Troponin I < 0.02 ng/ml (0.00-0.05) 05/08/17 01:00 Total Protein 6.8 g/dl (6.4-8.2) 05/08/17 08:31 Albumin 3.3 g/dl (3.4-5.0) L 05/09/17 07:15 Lipase 30 U/L (73-393) L 05/08/17 01:00 TSH 0.24 uIU/ml (0.358-3.74) L 05/08/17 21:30 Serum , Qual Negative 05/08/17 01:00 Current Medications Generic Name Dose Route Start Last Admin Trade Name Freq PRN Reason Stop Dose Admin Acetaminophen 650 mg 05/09/17 11:51 05/09/17 12:14 Tylenol - PO 650 mg Q6H PRN Administration PAIN Clonazepam 2 mg 05/08/17 10:00 05/09/17 10:17 Klonopin - PO 2 mg DAILY DULCE MARIA Administration Fluoxetine HCl 10 mg 05/08/17 10:00 05/09/17 10:17 Prozac - PO 10 mg DAILY DULCE MARIA Administration Heparin Sodium (Porcine) 5,000 unit 05/08/17 10:15 05/09/17 10:17 Heparin - SQ 5,000 unit Q8H DULCE MARIA Administration Potassium Chloride/Dextrose/Sod Cl 20 meq in 1,000 mls @ 150 mls/hr 05/08/17 10:45 05/09/17 10:37 D5-1/2ns+20 Meq Kcl - IV 150 mls/hr ASDIR DULCE MARIA Administration Insulin Aspart 1 vial 05/09/17 16:30 Novolog Vial Sliding Scale - SQ TIDAC [facility] Protocol Insulin Aspart 1 vial 05/09/17 22:00 Novolog Vial Sliding Scale - SQ HS [facility] Protocol Insulin Detemir 12 units 05/09/17 16:30 Levemir Vial SQ 05/09/17 16:31 ONCE ONE Lamotrigine 50 mg 05/09/17 22:00 Lamictal - PO HS [facility] Levothyroxine Sodium 50 mcg 05/08/17 10:00 05/09/17 06:14 Synthroid - PO 50 mcg DAILY@0700 DULCE MARIA Administration Ondansetron HCl 4 mg 05/08/17 09:56 Zofran Injection IVPUSH Q8H PRN NAUSEA Trazodone HCl 300 mg 05/09/17 22:00 Desyrel - PO HS DULCE MARIA A/P DKA T1DM Hypothyroidism Constipation Bipolar Disorder Off Insulin drip BGM after 15mins Levemir 12 at 4:30 p.m. today Repeat D50 if blood repeat blood sugar <70 BGM Q 4 hrs Continue D5 1/2 NS with 20 KCl to 150 an hour untile food intake is adequate Increase drip rate if necessary to maintain blood sugar >100 CMP, Mg Po4 in a.m. Replace electrolytes as necessary Continue LT4 50mcg QD for now. GI consult noted Will f/u Problem List - Problems (1) DKA (diabetic ketoacidoses) Code(s): E13.10 - OTH DIABETES MELLITUS WITH KETOACIDOSIS WITHOUT COMA (2) DM Diabetes mellitus type 1 Code(s): E10.9 - TYPE 1 DIABETES MELLITUS WITHOUT COMPLICATIONS (3) Hypothyroidism Code(s): E03.9 - HYPOTHYROIDISM, UNSPECIFIED
[2017-05-09] MEDS: ONDANSETRON 4 MG/2 ML VIAL IVPUSH PRN ×2 (14:15→22:25)
[2017-05-09] MEDS ORDERED: INSULIN DETEMIR 100 UNITS/ML MDV SQ ONE (16:30)
[2017-05-09] MEDS: ACETAMINOPHEN 1000 MG/100 ML VIAL (NON FORMULARY) IVPB PRN (17:23)
[2017-05-09 19:34] LABS: ANION GAP 9 (8-16); BLOOD UREA NITROGEN 9 mg/dL (7-18); CALCIUM 7.9 mg/dL (8.5-10.1); CHLORIDE 100 mmol/L (98-107); CO2 22 mmol/L (21-32); CREATININE 0.6 mg/dL (0.55-1.02); POTASSIUM 3.9 mmol/L (3.5-5.1); SODIUM 131 mmol/L (136-145)
[2017-05-09 19:49] LABS: GLUCOSE,RANDOM 427 mg/dL (74-106)
--- NOTE | 2017-05-09 21:57 | PN ---
Teaching Attending Note Name of Resident: Eugene Norris ATTENDING PHYSICIAN STATEMENT I saw and evaluated the patient. I reviewed the resident's note and discussed the case with the resident. I agree with the resident's findings and plan as documented. SUBJECTIVE: Patient is feeling better but still c/o having abdominal pain and continues to be constipated, had a slight Bowel movement. OBJECTIVE: Vital Signs Temperature 98.1 F 05/09/17 15:29 Pulse Rate 82 05/09/17 15:29 Respiratory Rate 18 05/09/17 15:29 Blood Pressure 143/94 05/09/17 15:29 O2 Sat by Pulse Oximetry (%) 100 05/09/17 09:00 CBCD WBC 13.6 K/mm3 (4.0-10.0) H D 05/09/17 07:15 RBC 4.19 M/mm3 (3.60-5.2) 05/09/17 07:15 Hgb 12.3 GM/dL (10.7-15.3) 05/09/17 07:15 Hct 37.7 % (32.4-45.2) 05/09/17 07:15 MCV 89.9 fl (80-96) 05/09/17 07:15 MCHC 32.7 g/dl (32.0-36.0) 05/09/17 07:15 RDW 15.8 % (11.6-15.6) H 05/09/17 07:15 Plt Count 291 K/MM3 (134-434) 05/09/17 07:15 MPV 9.7 fl (7.5-11.1) 05/09/17 07:15 CMP Sodium 131 mmol/L (136-145) L 05/09/17 18:20 Potassium 3.9 mmol/L (3.5-5.1) 05/09/17 18:20 Chloride 100 mmol/L (98-107) 05/09/17 18:20 Carbon Dioxide 22 mmol/L (21-32) 05/09/17 18:20 Anion Gap 9 (8-16) 05/09/17 18:20 BUN 9 mg/dL (7-18) 05/09/17 18:20 Creatinine 0.6 mg/dL (0.55-1.02) 05/09/17 18:20 Creat Clearance w eGFR > 60 (>60) 05/08/17 08:31 Random Glucose 427 mg/dL (74-106) H* 05/09/17 18:20 Calcium 7.9 mg/dL (8.5-10.1) L 05/09/17 18:20 Total Bilirubin 0.9 mg/dL (0.2-1.0) D 05/08/17 08:31 AST 8 U/L (15-37) L 05/08/17 08:31 ALT 21 U/L (12-78) 05/08/17 08:31 Alkaline Phosphatase 77 U/L (45-117) 05/08/17 08:31 Total Protein 6.8 g/dl (6.4-8.2) 05/08/17 08:31 Albumin 3.3 g/dl (3.4-5.0) L 05/09/17 07:15 CARDIAC ENZYMES Creatine Kinase 93 IU/L (26-192) 05/08/17 01:00 Troponin I < 0.02 ng/ml (0.00-0.05) 05/08/17 01:00 Current Medications Generic Name Dose Route Start Last Admin Trade Name Freq PRN Reason Stop Dose Admin Acetaminophen 1,000 mg 05/09/17 16:54 05/09/17 17:23 Ofirmev Injection - IVPB 1,000 mg Q6H PRN Administration PAIN Clonazepam 2 mg 05/08/17 10:00 05/09/17 10:17 Klonopin - PO 2 mg DAILY DULCE MARIA Administration Fluoxetine HCl 10 mg 05/08/17 10:00 05/09/17 10:17 Prozac - PO 10 mg DAILY DULCE MARIA Administration Heparin Sodium (Porcine) 5,000 unit 05/08/17 10:15 05/09/17 17:55 Heparin - SQ 5,000 unit Q8H DULCE MARIA Administration Potassium Chloride/Dextrose/Sod Cl 20 meq in 1,000 mls @ 150 mls/hr 05/08/17 10:45 05/09/17 20:35 D5-1/2ns+20 Meq Kcl - IV 150 mls/hr ASDIR DULCE MARIA Administration Insulin Aspart 1 vial 05/09/17 16:30 05/09/17 17:57 Novolog Vial Sliding Scale - SQ 6 unit TIDAC DULCE MARIA Administration Protocol Insulin Aspart 1 vial 05/09/17 22:00 Novolog Vial Sliding Scale - SQ HS DULCE MARIA Protocol Lamotrigine 50 mg 05/09/17 22:00 Lamictal - PO HS [facility] Levothyroxine Sodium 50 mcg 05/08/17 10:00 05/09/17 06:14 Synthroid - PO 50 mcg DAILY@0700 DULCE MARIA Administration Lorazepam 0.5 mg 05/09/17 19:45 Ativan Injection - IVPUSH Q6H PRN ANXIETY Ondansetron HCl 4 mg 05/08/17 09:56 05/09/17 14:15 Zofran Injection IVPUSH 4 mg Q8H PRN Administration NAUSEA Pantoprazole Sodium 40 mg 05/09/17 22:00 Protonix Iv IVPUSH BID DULCE MARIA Trazodone HCl 300 mg 05/09/17 22:00 Desyrel - PO [facility] Home Medications Medication Instructions Recorded Baclofen 10 mg PO DAILY 05/08/17 Clonazepam [Klonopin] 2 mg PO DAILY 05/08/17 Fluoxetine HCl [Prozac] 10 mg PO DAILY 05/08/17 Insulin (Levemir) [Levemir Vial] 22 unit SQ DAILY 05/08/17 Lamotrigine [Lamictal] 50 mg PO DAILY 05/08/17 Levothyroxine [Synthroid -] 50 mcg PO DAILY 05/08/17 Ramipril [Altace] 10 mg PO DAILY 05/08/17 Trazodone HCl 300 mg PO DAILY 05/08/17 PE: lying on her abdomen c/o having abdominal pain CVS:S1S2 positive, RRR Chest: CTABL abdomen: mild diffuse tenderness ext: pulses are positive ASSESSMENT AND PLAN: 31 y/o F w/PMH of IDDM, HTN, hypothyroidism, anxiety, depression, bipolar, presented to the ER due to "dka" as per pt. Pt found to have random glucose of 413, VBG pH of 7.21, ketones in urine, anion gap of 24, serum bicarb of 11. Pt admitted to ICU for DKA. # S/P acute DKA due to non-compliance of insulin therapy, also patient was feeling sick that was not able to administer herself the medication Anion gap is close now , endocrine on the case and appreciated. # Acute severe Constipation due to opiod use, GI on the case , enema to continue #Hypothyroidism continue meds # Hx of Anxiety, depression, bipolar d/o continue home meds DVT ppx: Heparin 5000
[2017-05-09] MEDS: traZODone HCL 100 MG TABLET (FP) PO SCH (22:25)
[2017-05-09] MEDS: PANTOPRAZOLE SODIUM 40 MG VIAL IVPUSH SCH (22:25)
[2017-05-09] MEDS: GLYCERIN 1 RECTAL SUPPOSITORY, ADULT PR ONE ×2 (22:27→22:41)
[2017-05-10] MEDS: LORazepam 2 MG/ML SDV VIAL IVPUSH PRN ×2 (01:20→21:45)
[2017-05-10] MEDS: HEPARIN NA (PORCINE) 5,000 UNITS/ML 1ML VIAL SQ SCH ×3 (03:13→18:31)
[2017-05-10] MEDS: D5-1/2NS+20 MEQ KCL - 20 MEQ/1,000 ML INFUS.BAG IV SCH ×2 (05:08→12:37)
[2017-05-10] MEDS: LEVOTHYROXINE NA 50 MCG TABLET (FP) PO SCH (06:20)
[2017-05-10] MEDS: INSULIN SLIDING SCALE (NOVOLOG) 1 VIAL SQ SCH ×4 (06:20→21:46)
[2017-05-10] MEDS: ONDANSETRON 4 MG/2 ML VIAL IVPUSH PRN (06:20)
[2017-05-10] MEDS ORDERED: INSULIN (NOVOLOG) ASPART 100 UNITS/ML 10ML VIAL ONE (07:05)
--- NOTE | 2017-05-10 07:16 | PN ---
Physical Exam: SUBJECTIVE: Patient seen and examined at bedside, doing much better, has small BM last night, still feel nauseated, with some abdominal distension , sugar level is better controlled over night (yesterday at 7 pm was 423, drop to 94 today morning. ) OBJECTIVE: Vital Signs Period Temp Pulse Resp BP Sys/Arce Pulse Ox Last 24 Hr 97.9 F-98.8 F 66-82 18-20 138-155/84-104 100-100 GENERAL: The patient is awake, alert, and fully oriented, in no acute distress. HEAD: Normal with no signs of trauma. EYES: sclera anicteric, conjunctiva clear. ENT: moist mucous membranes. NECK: supple. LUNGS: Breath sounds equal, clear to auscultation bilaterally, no wheezes, no crackles, no accessory muscle use. HEART: Regular rate and rhythm, S1, S2 without murmur, rub or gallop. ABDOMEN: Soft, med epigatric tenderness, distended, normoactive bowel sounds, no guarding, no rebound, EXTREMITIES: 2+ pulses, warm, well-perfused, no edema. NEUROLOGICAL: Cranial nerves II through XII grossly intact. Normal speech, gait not observed. PSYCH: Normal mood, normal affect. SKIN: Warm, dry, Laboratory Results - last 24 hr 05/08/17 05/08/17 05/09/17 00:37 03:20 07:15 WBC 13.6 H D RBC 4.19 Hgb 12.3 Hct 37.7 MCV 89.9 MCH 29.4 MCHC 32.7 RDW 15.8 H Plt Count 291 MPV 9.7 Neutrophils % 71.4 Lymphocytes % 18.7 D Monocytes % 8.7 Eosinophils % 0.8 D Basophils % 0.4 Sodium Potassium Chloride Carbon Dioxide Anion Gap BUN Creatinine POC Glucometer > [phone] Random Glucose Calcium Phosphorus Magnesium Albumin 05/09/17 05/09/17 05/09/17 07:15 08:17 10:27 WBC RBC Hgb Hct MCV MCH MCHC RDW Plt Count MPV Neutrophils % Lymphocytes % Monocytes % Eosinophils % Basophils % Sodium 137 Potassium 4.0 Chloride 105 Carbon Dioxide 23 Anion Gap 9 BUN 12 Creatinine 0.6 POC Glucometer 159 197 Random Glucose 168 H Calcium 8.2 L Phosphorus 2.0 L Magnesium 1.7 L Albumin 3.3 L 05/09/17 05/09/17 05/09/17 12:04 17:30 18:20 WBC RBC Hgb Hct MCV MCH MCHC RDW Plt Count MPV Neutrophils % Lymphocytes % Monocytes % Eosinophils % Basophils % Sodium 131 L Potassium 3.9 Chloride 100 Carbon Dioxide 22 Anion Gap 9 BUN 9 Creatinine 0.6 POC Glucometer 206 411 Random Glucose 427 H* Calcium 7.9 L Phosphorus Magnesium Albumin 05/09/17 05/10/17 05/10/17 21:40 00:34 04:28 WBC RBC Hgb Hct MCV MCH MCHC RDW Plt Count MPV Neutrophils % Lymphocytes % Monocytes % Eosinophils % Basophils % Sodium Potassium Chloride Carbon Dioxide Anion Gap BUN Creatinine POC Glucometer 167 114 94 Random Glucose Calcium Phosphorus Magnesium Albumin 05/10/17 06:18 WBC RBC Hgb Hct MCV MCH MCHC RDW Plt Count MPV Neutrophils % Lymphocytes % Monocytes % Eosinophils % Basophils % Sodium Potassium Chloride Carbon Dioxide Anion Gap BUN Creatinine POC Glucometer 116 Random Glucose Calcium Phosphorus Magnesium Albumin Active Medications Generic Name Dose Route Start Last Admin Trade Name Freq PRN Reason Stop Dose Admin Acetaminophen 1,000 mg 05/09/17 16:54 05/09/17 17:23 Ofirmev Injection - IVPB 1,000 mg Q6H PRN Administration PAIN Clonazepam 2 mg 05/08/17 10:00 05/09/17 10:17 Klonopin - PO 2 mg DAILY DULCE MARIA Administration Fluoxetine HCl 10 mg 05/08/17 10:00 05/09/17 10:17 Prozac - PO 10 mg DAILY DULCE MARIA Administration Heparin Sodium (Porcine) 5,000 unit 05/08/17 10:15 05/10/17 03:13 Heparin - SQ 5,000 unit Q8H DULCE MARIA Administration Potassium Chloride/Dextrose/Sod Cl 20 meq in 1,000 mls @ 150 mls/hr 05/08/17 10:45 05/10/17 05:08 D5-1/2ns+20 Meq Kcl - IV 150 mls/hr ASDIR DULCE MARIA Administration Insulin Aspart 1 vial 05/09/17 16:30 05/10/17 06:20 Novolog Vial Sliding Scale - SQ Not Given TIDAC DULCE MARIA Protocol Insulin Aspart 1 vial 05/09/17 22:00 05/09/17 22:28 Novolog Vial Sliding Scale - SQ Not Given HS DULCE MARIA Protocol Lamotrigine 50 mg 05/09/17 22:00 05/09/17 22:25 Lamictal - PO 50 mg HS DULCE MARIA Administration Levothyroxine Sodium 50 mcg 05/08/17 10:00 05/10/17 06:20 Synthroid - PO 50 mcg DAILY@0700 DULCE MARIA Administration Lorazepam 0.5 mg 05/09/17 19:45 05/10/17 01:20 Ativan Injection - IVPUSH 0.5 mg Q6H PRN Administration ANXIETY Ondansetron HCl 4 mg 05/08/17 09:56 05/10/17 06:20 Zofran Injection IVPUSH 4 mg Q8H PRN Administration NAUSEA Pantoprazole Sodium 40 mg 05/09/17 22:00 05/09/17 22:25 Protonix Iv IVPUSH 40 mg BID DULCE MARIA Administration Trazodone HCl 300 mg 05/09/17 22:00 05/09/17 22:25 Desyrel - PO 300 mg HS DULCE MARIA Administration CBC, BMP 05/09/17 07:15 05/09/17 18:20 Imaging: Abd/Pelvis CT: . Large amounts of stool present in lower GI tract.mild right hydronephrosis Micro: UCx: No growth Active Medications Chlorhexidine Gluconate (Hibiclens For Decolonization -) 1 applic TP HS [facility] Clonazepam (Klonopin -) 2 mg PO DAILY [facility] Fluoxetine HCl (Prozac -) 10 mg PO DAILY [facility] Insulin Human Regular 100 (units/ Sodium Chloride) 100 mls @ 5.35 mls/hr IVPB TITR DULCE MARIA; 0.1 UNITS/KG/HR PRN Reason: Protocol Last Admin: 05/08/17 03:28 Dose: 0.1 units/kg/hr, 5.35 mls/hr Dextrose/Sodium Chloride (D5-1/2ns+40 Meq Kcl -) 40 meq in 1,000 mls @ 100 mls/ hr IV ASDIR DULCE MARIA Last Admin: 05/08/17 08:48 Dose: 100 mls/hr Lamotrigine (Lamictal -) 50 mg PO DAILY [facility] Levothyroxine Sodium (Synthroid -) 50 mcg PO DAILY@0700 [facility] Mupirocin (Bactroban Ointment (For Decolonization) -) 1 applic NS BID [facility] Stop: 05/13/17 09:59 ASSESSMENT/PLAN: 31 y/o F w/PMH of IDDM, HTN, hypothyroidism, anxiety, depression, bipolar, presented to the ER due to "dka" as per pt. Pt found to have random glucose of 413, VBG pH of 7.21, ketones in urine, anion gap of 24, serum bicarb of 11. Pt admitted to ICU for DKA. -S/P DKA secondary to likely non-compliance of insulin therapy, rersolved - Insulin drip, D5-1/2NS + 40 meq KCl @ 100 ml/hr, zofran for nausea - Check BMP q2h until gap closes. Will change to q4-6h once pt is stable. - BGMs Q4hr - Monitor potassium, replete w/goal of 4-5 mEq/L - gap closed now , diabetic diet to pt, (-Home dose of lantus is 22 units qhs as per pt) - HA1C is 10.2 - Endocrine consulted - Serum osmolality is ~300 on admission (>320 osmolality, pH >7.3, low to no ketones in HHS) - Levimir 12 units at 4.30 per endo recommendation - Repeat D50 if blood repeat blood sugar <70 - Continue D5 1/2 NS with 20 KCl to 150 an hour untile food intake is adequate - CMP, Mg Po4 in a.m. -Constipation, R/O diabetic gastroparesis - likely secondary to opiate use. Pt states she has not taken pain meds for her back in weeks but according to charts mother thinks she may be taking oxycodone. - Pt's Utox positive for opiates but collected after being morphine in ER - f/u abd/pelvis CT Fecal retension with distended rectum , mild right hydronephrosis - GI consulted due to large amounts of stool. Pt also still constipated despite being given miralax, lactulose, glycerin suppository in ER and fleet enema done yesterday at home.with no succes - Tap water enema per Dr adames , Glycerine suppositroy was added with iron SHIRLEY yesterday -Hypothyroidism - start on home med: synthroid 50 mcg qd po -if unable to tolerate PO can give 25 mcg IV qd -Anxiety, depression, bipolar d/o - home meds: fluoxetine 10 mg po qd, klonopin 2mg po qd, lamictal 50 mg po qd hs -DVT ppx - Heparin 5000 units sq q8h -FEN - D5-1/2NS + 40 meq KCl @ 100 ml/hr - Monitor electrolytes. While on insulin drip goal K is 4-5. Pseudohyponatremia due to hyperglycemia (corrected Na is: 140) - diabetic diet as tolerated -Dispo: - Admit to ICU, transferred to med-surg Visit type - Emergency Visit Emergency Visit: Yes ED Registration Date: 05/08/17 Care time: The patient presented to the Emergency Department on the above date and was hospitalized for further evaluation of their emergent condition. - New Patient This patient is new to me today: No - Critical Care Critical Care patient: No - Discharge Referral Referred to [facility] Med P.C.: No
[2017-05-10 08:09] LABS: HEMATOCRIT 38.5 % (32.4-45.2); HEMOGLOBIN 12.7 GM/dL (10.7-15.3); MCH 29.4 pg (25.7-33.7); MCHC 32.9 g/dl (32.0-36.0); MEAN CELL VOLUME 89.3 fl (80-96); MEAN PLT VOLUME 9.7 fl (7.5-11.1); PLATELET COUNT 291 K/MM3 (134-434); RBC 4.31 M/mm3 (3.60-5.2); RDW 15.7 % (11.6-15.6); WHITE BLOOD COUNT 8.3 K/mm3 (4.0-10.0)
[2017-05-10 08:32] LABS: CHLORIDE 102 mmol/L (98-107); SODIUM 137 mmol/L (136-145)
[2017-05-10 09:10] LABS: ALBUMIN 3.3 g/dl (3.4-5.0); ALK PHOS 62 U/L (45-117); ANION GAP 11 (8-16); BILIRUBIN,TOTAL 0.7 mg/dL (0.2-1.0); BLOOD UREA NITROGEN 7 mg/dL (7-18); CALCIUM 8.6 mg/dL (8.5-10.1); CO2 24 mmol/L (21-32); CREATININE 0.4 mg/dL (0.55-1.02); GLUCOSE,RANDOM 115 mg/dL (74-106); PHOSPHOROUS 2.7 mg/dL (2.5-4.9); SGOT/AST 13 U/L (15-37); SGPT/ALT 17 U/L (12-78); TOT PROT 5.9 g/dl (6.4-8.2)
--- NOTE | 2017-05-10 09:26 | PN ---
Progress Note, Physician History of Present Illness: States feeling better today. Still had nausea, and abdominal pain when tries to defecate. Tolerating diet. No events overnight - Current Medication List Current Medications: Active Medications Acetaminophen (Ofirmev Injection -) 1,000 mg IVPB Q6H PRN PRN Reason: PAIN Last Admin: 05/09/17 17:23 Dose: 1,000 mg Clonazepam (Klonopin -) 2 mg PO DAILY [facility] Last Admin: 05/09/17 10:17 Dose: 2 mg Fluoxetine HCl (Prozac -) 10 mg PO DAILY [facility] Last Admin: 05/09/17 10:17 Dose: 10 mg Heparin Sodium (Porcine) (Heparin -) 5,000 unit SQ Q8H [facility] Last Admin: 05/10/17 03:13 Dose: 5,000 unit Potassium Chloride/Dextrose/Sod Cl (D5-1/2ns+20 Meq Kcl -) 20 meq in 1,000 mls @ 150 mls/hr IV ASDIR [facility] Last Admin: 05/10/17 05:08 Dose: 150 mls/hr Insulin Aspart (Novolog Vial Sliding Scale -) 1 vial SQ TIDAC [facility] PRN Reason: Protocol Last Admin: 05/10/17 06:20 Dose: Not Given Insulin Aspart (Novolog Vial Sliding Scale -) 1 vial SQ [facility] PRN Reason: Protocol Last Admin: 05/09/17 22:28 Dose: Not Given Lamotrigine (Lamictal -) 50 mg PO [facility] Last Admin: 05/09/17 22:25 Dose: 50 mg Levothyroxine Sodium (Synthroid -) 50 mcg PO DAILY@0700 [facility] Last Admin: 05/10/17 06:20 Dose: 50 mcg Lorazepam (Ativan Injection -) 0.5 mg IVPUSH Q6H PRN PRN Reason: ANXIETY Last Admin: 05/10/17 01:20 Dose: 0.5 mg Ondansetron HCl (Zofran Injection) 4 mg IVPUSH Q8H PRN PRN Reason: NAUSEA Last Admin: 05/10/17 06:20 Dose: 4 mg Pantoprazole Sodium (Protonix Iv) 40 mg IVPUSH BID [facility] Last Admin: 05/09/17 22:25 Dose: 40 mg Trazodone HCl (Desyrel -) 300 mg PO [facility] Last Admin: 05/09/17 22:25 Dose: 300 mg - Objective Vital Signs: Vital Signs Temperature 98.2 F 05/10/17 06:00 Pulse Rate 81 05/10/17 06:00 Respiratory Rate 20 05/10/17 06:00 Blood Pressure 143/84 05/10/17 06:00 O2 Sat by Pulse Oximetry (%) 100 05/09/17 21:00 Constitutional: Yes: No Distress, Calm Gastrointestinal: Yes: Soft. No: Melena, Tenderness, Epigastrium, Tenderness, Rebound, Vomiting Neurological: Yes: Alert, Oriented Labs: CBC, BMP 05/10/17 06:40 05/10/17 06:40 INR, PTT INR 0.96 (0.82-1.09) 05/08/17 01:00 CBCD WBC 8.3 K/mm3 (4.0-10.0) D 05/10/17 06:40 RBC 4.31 M/mm3 (3.60-5.2) 05/10/17 06:40 Hgb 12.7 GM/dL (10.7-15.3) 05/10/17 06:40 Hct 38.5 % (32.4-45.2) 05/10/17 06:40 MCV 89.3 fl (80-96) 05/10/17 06:40 MCHC 32.9 g/dl (32.0-36.0) 05/10/17 06:40 RDW 15.7 % (11.6-15.6) H 05/10/17 06:40 Plt Count 291 K/MM3 (134-434) 05/10/17 06:40 MPV 9.7 fl (7.5-11.1) 05/10/17 06:40 CMP Sodium 137 mmol/L (136-145) 05/10/17 06:40 Potassium 4.0 mmol/L (3.5-5.1) 05/10/17 06:40 Chloride 102 mmol/L (98-107) 05/10/17 06:40 Carbon Dioxide 24 mmol/L (21-32) 05/10/17 06:40 Anion Gap 11 (8-16) 05/10/17 06:40 BUN 7 mg/dL (7-18) 05/10/17 06:40 Creatinine 0.4 mg/dL (0.55-1.02) L 05/10/17 06:40 Creat Clearance w eGFR > 60 (>60) 05/10/17 06:40 Calcium 8.6 mg/dL (8.5-10.1) 05/10/17 06:40 Total Bilirubin 0.7 mg/dL (0.2-1.0) D 05/10/17 06:40 AST 13 U/L (15-37) L 05/10/17 06:40 ALT 17 U/L (12-78) 05/10/17 06:40 Alkaline Phosphatase 62 U/L (45-117) 05/10/17 06:40 Total Protein 5.9 g/dl (6.4-8.2) L 05/10/17 06:40 Albumin 3.3 g/dl (3.4-5.0) L 05/10/17 06:40 Problem List - Problems (1) Constipation Code(s): K59.00 - CONSTIPATION, UNSPECIFIED (2) Overflow diarrhea Code(s): R19.7 - DIARRHEA, UNSPECIFIED Assessment/Plan constipation in settings of uncontrolled DM, possible medications effect and electrolytes imbalance Tap water enemas until good return followed by Miralax tid, bid to allow for daily, or every other day bm. diet as tolerated consider gastric emptying study, if positive, adjust diet accordingly keep BG under 180
--- NOTE | 2017-05-10 10:00 | PN ---
Progress Note (short form) - Note Progress Note: Feels better Moved Bowels today Apetite poor with nausea Vital Signs Period Temp Pulse Resp BP Sys/Arce Pulse Ox Last 24 Hr 97.9 F-98.8 F 66-82 18-20 138-147/84-103 100 PE: Aox3 Neck: Supple, No JVD HEENT: EOMI Lungs: CTA CVS: S1S2 Abd: Benign EXt: No edema Neuro: No focal deficit CMP Sodium 137 mmol/L (136-145) 05/10/17 06:40 Potassium 4.0 mmol/L (3.5-5.1) 05/10/17 06:40 Chloride 102 mmol/L (98-107) 05/10/17 06:40 Carbon Dioxide 24 mmol/L (21-32) 05/10/17 06:40 Anion Gap 11 (8-16) 05/10/17 06:40 BUN 7 mg/dL (7-18) 05/10/17 06:40 Creatinine 0.4 mg/dL (0.55-1.02) L 05/10/17 06:40 Creat Clearance w eGFR > 60 (>60) 05/10/17 06:40 POC Glucometer 116 UNITS (80-120) 05/10/17 06:18 Random Glucose 115 mg/dL (74-106) H 05/10/17 06:40 Hemoglobin A1c % 10.2 % (4.8-6.0) H 05/08/17 08:31 Lactic Acid 2.0 mmol/L (0.0-2.0) 05/08/17 01:00 Calcium 8.6 mg/dL (8.5-10.1) 05/10/17 06:40 Phosphorus 2.7 mg/dL (2.5-4.9) 05/10/17 06:40 Magnesium 2.0 mg/dL (1.8-2.4) 05/10/17 06:40 Total Bilirubin 0.7 mg/dL (0.2-1.0) D 05/10/17 06:40 AST 13 U/L (15-37) L 05/10/17 06:40 ALT 17 U/L (12-78) 05/10/17 06:40 Alkaline Phosphatase 62 U/L (45-117) 05/10/17 06:40 Creatine Kinase 93 IU/L (26-192) 05/08/17 01:00 Troponin I < 0.02 ng/ml (0.00-0.05) 05/08/17 01:00 Total Protein 5.9 g/dl (6.4-8.2) L 05/10/17 06:40 Albumin 3.3 g/dl (3.4-5.0) L 05/10/17 06:40 Lipase 30 U/L (73-393) L 05/08/17 01:00 TSH 0.24 uIU/ml (0.358-3.74) L 05/08/17 21:30 Serum , Qual Negative 05/08/17 01:00 Current Medications Generic Name Dose Route Start Last Admin Trade Name Freq PRN Reason Stop Dose Admin Acetaminophen 1,000 mg 05/09/17 16:54 05/09/17 17:23 Ofirmev Injection - IVPB 1,000 mg Q6H PRN Administration PAIN Clonazepam 2 mg 05/08/17 10:00 05/09/17 10:17 Klonopin - PO 2 mg DAILY DULCE MARIA Administration Fluoxetine HCl 10 mg 05/08/17 10:00 05/09/17 10:17 Prozac - PO 10 mg DAILY DULCE MARIA Administration Heparin Sodium (Porcine) 5,000 unit 05/08/17 10:15 05/10/17 03:13 Heparin - SQ 5,000 unit Q8H DULCE MARIA Administration Potassium Chloride/Dextrose/Sod Cl 20 meq in 1,000 mls @ 150 mls/hr 05/08/17 10:45 05/10/17 05:08 D5-1/2ns+20 Meq Kcl - IV 150 mls/hr ASDIR DULCE MARIA Administration Insulin Aspart 1 vial 05/09/17 16:30 05/10/17 06:20 Novolog Vial Sliding Scale - SQ Not Given TIDAC DULCE MARIA Protocol Insulin Aspart 1 vial 05/09/17 22:00 05/09/17 22:28 Novolog Vial Sliding Scale - SQ Not Given HS [facility] Protocol Lamotrigine 50 mg 05/09/17 22:00 05/09/17 22:25 Lamictal - PO 50 mg HS DULCE MARIA Administration Levothyroxine Sodium 50 mcg 05/08/17 10:00 05/10/17 06:20 Synthroid - PO 50 mcg DAILY@0700 DULCE MARIA Administration Lorazepam 0.5 mg 05/09/17 19:45 05/10/17 01:20 Ativan Injection - IVPUSH 0.5 mg Q6H PRN Administration ANXIETY Ondansetron HCl 4 mg 05/08/17 09:56 05/10/17 06:20 Zofran Injection IVPUSH 4 mg Q8H PRN Administration NAUSEA Pantoprazole Sodium 40 mg 05/09/17 22:00 05/09/17 22:25 Protonix Iv IVPUSH 40 mg BID DULCE MARIA Administration Trazodone HCl 300 mg 05/09/17 22:00 05/09/17 22:25 Desyrel - PO 300 mg HS DULCE MARIA Administration A/P DKA T1DM Hypothyroidism Constipation Bipolar Disorder Levemir 12 daily starting today. Today's dose to be given at 12 noon. Pt is on BGM Q4 hour. Discussed to monitor pt for any hypoglycemia as pt got last dose at around 6 p.m. last night. Discussed with RN. Same explained to pt, to report any symptoms. Repeat D50 if blood repeat blood sugar <70 BGM Q 4 hrs Continue D5 1/2 NS with 20 KCl to 150 an hour until food intake is adequate Increase drip rate if necessary to maintain blood sugar >100 CMP, Mg Po4 in a.m. Replace electrolytes as necessary Continue LT4 50mcg QD for now. Will f/u Problem List - Problems (1) DKA (diabetic ketoacidoses) Code(s): E13.10 - OTH DIABETES MELLITUS WITH KETOACIDOSIS WITHOUT COMA (2) DM Diabetes mellitus type 1 Code(s): E10.9 - TYPE 1 DIABETES MELLITUS WITHOUT COMPLICATIONS (3) Hypothyroidism Code(s): E03.9 - HYPOTHYROIDISM, UNSPECIFIED
[2017-05-10] MEDS ORDERED: PT OWN MED DRAWER 7, Y5N ONE ×3 (10:30→14:32)
[2017-05-10] MEDS: clonazePAM 2 MG TABLET PO SCH (10:39)
[2017-05-10] MEDS: FLUoxetine HCL 10 MG CAPSULE (FP) PO SCH (10:39)
[2017-05-10] MEDS: PANTOPRAZOLE SODIUM 40 MG VIAL IVPUSH SCH ×2 (10:40→21:43)
[2017-05-10] MEDS: ACETAMINOPHEN 1000 MG/100 ML VIAL (NON FORMULARY) IVPB PRN (11:05)
[2017-05-10] MEDS: INSULIN DETEMIR 100 UNITS/ML MDV SQ SCH (12:38)
[2017-05-10] MEDS ORDERED: POLYETHYLENE GLYCOL 3350 255 GM BTL PO ONE (15:45)
--- NOTE | 2017-05-10 16:57 | PN ---
Teaching Attending Note Name of Resident: Eugene Norris ATTENDING PHYSICIAN STATEMENT I saw and evaluated the patient. I reviewed the resident's note and discussed the case with the resident. I agree with the resident's findings and plan as documented. SUBJECTIVE: Patient is feeling better today. no nausea or vomiting. OBJECTIVE: Vital Signs Temperature 99.8 F H 05/10/17 14:09 Pulse Rate 88 05/10/17 14:09 Respiratory Rate 18 05/10/17 14:09 Blood Pressure 131/70 05/10/17 14:09 O2 Sat by Pulse Oximetry (%) 100 05/09/17 21:00 CBCD WBC 8.3 K/mm3 (4.0-10.0) D 05/10/17 06:40 RBC 4.31 M/mm3 (3.60-5.2) 05/10/17 06:40 Hgb 12.7 GM/dL (10.7-15.3) 05/10/17 06:40 Hct 38.5 % (32.4-45.2) 05/10/17 06:40 MCV 89.3 fl (80-96) 05/10/17 06:40 MCHC 32.9 g/dl (32.0-36.0) 05/10/17 06:40 RDW 15.7 % (11.6-15.6) H 05/10/17 06:40 Plt Count 291 K/MM3 (134-434) 05/10/17 06:40 MPV 9.7 fl (7.5-11.1) 05/10/17 06:40 CMP Sodium 137 mmol/L (136-145) 05/10/17 06:40 Potassium 4.0 mmol/L (3.5-5.1) 05/10/17 06:40 Chloride 102 mmol/L (98-107) 05/10/17 06:40 Carbon Dioxide 24 mmol/L (21-32) 05/10/17 06:40 Anion Gap 11 (8-16) 05/10/17 06:40 BUN 7 mg/dL (7-18) 05/10/17 06:40 Creatinine 0.4 mg/dL (0.55-1.02) L 05/10/17 06:40 Creat Clearance w eGFR > 60 (>60) 05/10/17 06:40 Random Glucose 115 mg/dL (74-106) H 05/10/17 06:40 Calcium 8.6 mg/dL (8.5-10.1) 05/10/17 06:40 Total Bilirubin 0.7 mg/dL (0.2-1.0) D 05/10/17 06:40 AST 13 U/L (15-37) L 05/10/17 06:40 ALT 17 U/L (12-78) 05/10/17 06:40 Alkaline Phosphatase 62 U/L (45-117) 05/10/17 06:40 Total Protein 5.9 g/dl (6.4-8.2) L 05/10/17 06:40 Albumin 3.3 g/dl (3.4-5.0) L 05/10/17 06:40 CARDIAC ENZYMES Creatine Kinase 93 IU/L (26-192) 05/08/17 01:00 Troponin I < 0.02 ng/ml (0.00-0.05) 05/08/17 01:00 Current Medications Generic Name Dose Route Start Last Admin Trade Name Rosalba PRN Reason Stop Dose Admin Acetaminophen 1,000 mg 05/09/17 16:54 05/10/17 11:05 Ofirmev Injection - IVPB 1,000 mg Q6H PRN Administration PAIN Clonazepam 2 mg 05/08/17 10:00 05/10/17 10:39 Klonopin - PO 2 mg DAILY DULCE MARIA Administration Fluoxetine HCl 10 mg 05/08/17 10:00 05/10/17 10:39 Prozac - PO 10 mg DAILY DULCE MARIA Administration Heparin Sodium (Porcine) 5,000 unit 05/08/17 10:15 05/10/17 10:40 Heparin - SQ 5,000 unit Q8H DULCE MARIA Administration Potassium Chloride/Dextrose/Sod Cl 20 meq in 1,000 mls @ 150 mls/hr 05/08/17 10:45 05/10/17 12:37 D5-1/2ns+20 Meq Kcl - IV 150 mls/hr ASDIR DULCE MARIA Administration Insulin Aspart 1 vial 05/09/17 16:30 05/10/17 12:37 Novolog Vial Sliding Scale - SQ 4 unit TIDAC DULCE MARIA Administration Protocol Insulin Aspart 1 vial 05/09/17 22:00 05/09/17 22:28 Novolog Vial Sliding Scale - SQ Not Given HS [facility] Protocol Insulin Detemir 12 units 05/10/17 10:00 05/10/17 12:38 Levemir Vial SQ 12 units DAILY@0700 DULCE MARIA Administration Lamotrigine 50 mg 05/09/17 22:00 05/09/17 22:25 Lamictal - PO 50 mg HS [facility] Administration Levothyroxine Sodium 50 mcg 05/08/17 10:00 05/10/17 06:20 Synthroid - PO 50 mcg DAILY@0700 DULCE MARIA Administration Lorazepam 0.5 mg 05/09/17 19:45 05/10/17 01:20 Ativan Injection - IVPUSH 0.5 mg Q6H PRN Administration ANXIETY Ondansetron HCl 4 mg 05/08/17 09:56 05/10/17 06:20 Zofran Injection IVPUSH 4 mg Q8H PRN Administration NAUSEA Pantoprazole Sodium 40 mg 05/09/17 22:00 05/10/17 10:40 Protonix Iv IVPUSH 40 mg BID DULCE MARIA Administration Trazodone HCl 300 mg 05/09/17 22:00 05/09/17 22:25 Desyrel - PO 300 mg HS [facility] Administration Home Medications Medication Instructions Recorded Baclofen 10 mg PO DAILY 05/08/17 Clonazepam [Klonopin] 2 mg PO DAILY 05/08/17 Fluoxetine HCl [Prozac] 10 mg PO DAILY 05/08/17 Insulin (Levemir) [Levemir Vial] 22 unit SQ DAILY 05/08/17 Lamotrigine [Lamictal] 50 mg PO DAILY 05/08/17 Levothyroxine [Synthroid -] 50 mcg PO DAILY 05/08/17 Ramipril [Altace] 10 mg PO DAILY 05/08/17 Trazodone HCl 300 mg PO DAILY 05/08/17 lying on her abdomen c/o having abdominal pain CVS:S1S2 positive, RRR Chest: CTABL abdomen: mild diffuse tenderness, less distended today ext: pulses are positive ASSESSMENT AND PLAN: 31 y/o F w/PMH of IDDM, HTN, hypothyroidism, anxiety, depression, bipolar, presented to the ER due to "dka" as per pt. Pt found to have random glucose of 413, VBG pH of 7.21, ketones in urine, anion gap of 24, serum bicarb of 11. Pt admitted to ICU for DKA. # S/P acute DKA due to non-compliance of insulin therapy, also patient was feeling sick that was not able to administer herself the medication Anion gap is close now , endocrine on the case and appreciated. # Acute severe Constipation due to opiod use, GI on the case , enema and Miralax to continue #Hypothyroidism continue meds # Hx of Anxiety, depression, bipolar d/o continue home meds DVT ppx: Heparin 5000
[2017-05-10] MEDS ORDERED: INSULIN DETEMIR 100 UNITS/ML MDV SQ ONE (19:02)
[2017-05-10] MEDS: traZODone HCL 100 MG TABLET (FP) PO SCH (21:43)
[2017-05-10] MEDS: lamoTRIgine 25 MG TABLET PO SCH (21:45)
[2017-05-11] MEDS: D5-1/2NS+20 MEQ KCL - 20 MEQ/1,000 ML INFUS.BAG IV SCH ×3 (00:25→10:52)
[2017-05-11] MEDS: HEPARIN NA (PORCINE) 5,000 UNITS/ML 1ML VIAL SQ SCH ×3 (02:51→18:45)
--- NOTE | 2017-05-11 05:58 | PN ---
Addendum entered and electronically signed by Eugene Norris, RESIDENT 05/11/17 19 :35: Kidney US ordered in term of R kidney Hydronephrosis S/P sever constipation F/U urologist as out patient. Original Note: Physical Exam: SUBJECTIVE: Patient seen and examined at bedside. feeling better, had BM , denies any fever, chills, had some nausea, eat dinner , sugar will controlled. OBJECTIVE: Vital Signs Period Temp Pulse Resp BP Sys/Arce Pulse Ox Last 24 Hr 98.2 F-99.8 F 76-88 18-20 131-143/70-88 100-100 GENERAL: The patient is awake, alert, and fully oriented, in no acute distress. HEAD: Normal with no signs of trauma. EYES: PERRL, extraocular movements intact, sclera anicteric, conjunctiva clear. No ptosis. ENT: Ears normal, nares patent, oropharynx clear without exudates, moist mucous membranes. NECK: Trachea midline, full range of motion, supple. LUNGS: Breath sounds equal, clear to auscultation bilaterally, no wheezes, no crackles, no accessory muscle use. HEART: Regular rate and rhythm, S1, S2 without murmur, rub or gallop. ABDOMEN: Soft,mild diffuse tenderness, nondistended, normoactive bowel sounds, no guarding, no rebound, no hepatosplenomegaly, no masses. EXTREMITIES: 2+ pulses, warm, well-perfused, no edema. NEUROLOGICAL: Cranial nerves II through XII grossly intact. Normal speech, gait not observed. PSYCH: Normal mood, normal affect. SKIN: Warm, dry, normal turgor, no rashes or lesions noted Laboratory Results - last 24 hr 05/10/17 05/10/17 05/10/17 06:18 06:40 06:40 WBC 8.3 D RBC 4.31 Hgb 12.7 Hct 38.5 MCV 89.3 MCH 29.4 MCHC 32.9 RDW 15.7 H Plt Count 291 MPV 9.7 Sodium 137 Potassium 4.0 Chloride 102 Carbon Dioxide 24 Anion Gap 11 BUN 7 Creatinine 0.4 L Creat Clearance w eGFR > 60 POC Glucometer 116 Random Glucose 115 H Calcium 8.6 Phosphorus 2.7 Magnesium 2.0 Total Bilirubin 0.7 D AST 13 L ALT 17 Alkaline Phosphatase 62 Total Protein 5.9 L Albumin 3.3 L 05/10/17 05/10/17 05/10/17 10:38 12:16 15:57 WBC RBC Hgb Hct MCV MCH MCHC RDW Plt Count MPV Sodium Potassium Chloride Carbon Dioxide Anion Gap BUN Creatinine Creat Clearance w eGFR POC Glucometer 187 274 131 Random Glucose Calcium Phosphorus Magnesium Total Bilirubin AST ALT Alkaline Phosphatase Total Protein Albumin 05/10/17 05/10/17 05/10/17 17:47 19:21 21:39 WBC RBC Hgb Hct MCV MCH MCHC RDW Plt Count MPV Sodium Potassium Chloride Carbon Dioxide Anion Gap BUN Creatinine Creat Clearance w eGFR POC Glucometer 68 106 182 Random Glucose Calcium Phosphorus Magnesium Total Bilirubin AST ALT Alkaline Phosphatase Total Protein Albumin 05/11/17 01:35 WBC RBC Hgb Hct MCV MCH MCHC RDW Plt Count MPV Sodium Potassium Chloride Carbon Dioxide Anion Gap BUN Creatinine Creat Clearance w eGFR POC Glucometer 95 Random Glucose Calcium Phosphorus Magnesium Total Bilirubin AST ALT Alkaline Phosphatase Total Protein Albumin Active Medications Generic Name Dose Route Start Last Admin Trade Name Freq PRN Reason Stop Dose Admin Acetaminophen 1,000 mg 05/09/17 16:54 05/10/17 11:05 Ofirmev Injection - IVPB 1,000 mg Q6H PRN Administration PAIN Clonazepam 2 mg 05/08/17 10:00 05/10/17 10:39 Klonopin - PO 2 mg DAILY DULCE MARIA Administration Fluoxetine HCl 10 mg 05/08/17 10:00 05/10/17 10:39 Prozac - PO 10 mg DAILY DULCE MARIA Administration Heparin Sodium (Porcine) 5,000 unit 05/08/17 10:15 05/11/17 02:51 Heparin - SQ 5,000 unit Q8H DULCE MARIA Administration Potassium Chloride/Dextrose/Sod Cl 20 meq in 1,000 mls @ 150 mls/hr 05/08/17 10:45 05/11/17 00:25 D5-1/2ns+20 Meq Kcl - IV 150 mls/hr ASDIR DULCE MARIA Administration Insulin Aspart 1 vial 05/09/17 16:30 05/10/17 18:05 Novolog Vial Sliding Scale - SQ Not Given TIDAC [facility] Protocol Insulin Aspart 1 vial 05/09/17 22:00 05/10/17 21:46 Novolog Vial Sliding Scale - SQ Not Given HS [facility] Protocol Insulin Detemir 12 units 05/10/17 10:00 05/10/17 12:38 Levemir Vial SQ 12 units DAILY@0700 DULCE MARIA Administration Lamotrigine 50 mg 05/09/17 22:00 05/10/17 21:45 Lamictal - PO 50 mg HS DULCE MARIA Administration Levothyroxine Sodium 50 mcg 05/08/17 10:00 05/10/17 06:20 Synthroid - PO 50 mcg DAILY@0700 DULCE MARIA Administration Lorazepam 0.5 mg 05/09/17 19:45 05/10/17 21:45 Ativan Injection - IVPUSH 0.5 mg Q6H PRN Administration ANXIETY Ondansetron HCl 4 mg 05/08/17 09:56 05/10/17 06:20 Zofran Injection IVPUSH 4 mg Q8H PRN Administration NAUSEA Pantoprazole Sodium 40 mg 05/09/17 22:00 05/10/17 21:43 Protonix Iv IVPUSH 40 mg BID DULCE MARIA Administration Trazodone HCl 300 mg 05/09/17 22:00 05/10/17 21:43 Desyrel - PO 300 mg HS DULCE MARIA Administration CBC, BMP 05/11/17 07:30 05/11/17 07:30 Imaging: Abd/Pelvis CT: . Large amounts of stool present in lower GI tract.mild right hydronephrosis Micro: UCx: No growth ASSESSMENT/PLAN: 31 y/o F w/PMH of IDDM, HTN, hypothyroidism, anxiety, depression, bipolar, presented to the ER due to "dka" as per pt. Pt found to have random glucose of 413, VBG pH of 7.21, ketones in urine, anion gap of 24, serum bicarb of 11. Pt admitted to ICU for DKA. # IDDM S/P DKA secondary to likely non-compliance of insulin therapy, rersolved , * gap closed now, diabetic diet * BGMQ 4hr * ISS * Levemir 12 units daily per endo recommendation (home dose lantus 22 units QHS) * Repeat D50 if blood repeat blood sugar <70 * Monitor potassium, replete w/goal of 4-5 mEq/L * HA1C is 10.2 * Endocrinology on the board * Continue D5 1/2 NS with 20 KCl to 150 an hour until food intake is adequate * CMP, Mg Po4 in a.m. * Monitor for hypoglycemia * Zofran for Nausea PRN #Constipation,2/2 opioid abuse can not R/O diabetic gastro paresis vs Med SE ( SSRI) * abd/pelvis CT: Fecal retention with distended rectum, mild right hydronephrosis * GI On the board * Tap water enema per, Glycerine suppository, Miralax bowel prep as tolerated * Digital disimpaction with minimal relief * had multiple BM today with hard stool # Hypoglycemia , * after we DC D5w/1/2 NS sugar drop to 49 * Monitor * restart the fluids on 100 cc/hr #Hypothyroidism * Continue home med: synthroid 50 mcg qd po #Anxiety, depression, bipolar d/o * Continue home meds: * fluoxetine 10 mg po qd, klonopin 2mg po qd, lamictal 50 mg po qd hs , Ativan 0.5 mg IV PRN #Proph * DVT ppx, Heparin 5000 units sq q8h * GI proph: Protonix 40 mg PO #FEN * D5-1/2NS + 40 meq KCl @ 100 ml/hr * Monitor electrolytes. * diabetic diet as tolerated #Dispo: * Admit to ICU, transferred to med-surg * Monitor BGM , * Possible DC tomorrow Visit type - Emergency Visit Emergency Visit: Yes ED Registration Date: 05/08/17 Care time: The patient presented to the Emergency Department on the above date and was hospitalized for further evaluation of their emergent condition. - New Patient This patient is new to me today: No - Critical Care Critical Care patient: No - Discharge Referral Referred to [facility] Med P.C.: No
[2017-05-11] MEDS: LEVOTHYROXINE NA 50 MCG TABLET (FP) PO SCH (06:25)
[2017-05-11] MEDS: INSULIN SLIDING SCALE (NOVOLOG) 1 VIAL SQ SCH ×3 (06:25→17:28)
[2017-05-11 08:39] LABS: BASO % 0.3 % (0-2.0); EOS % 1.9 % (0-4.5); HEMATOCRIT 37.7 % (32.4-45.2); HEMOGLOBIN 12.2 GM/dL (10.7-15.3); LYMPH % 36.6 % (8-40); MCH 29.3 pg (25.7-33.7); MCHC 32.4 g/dl (32.0-36.0); MEAN CELL VOLUME 90.3 fl (80-96); MEAN PLT VOLUME 9.9 fl (7.5-11.1); MONO % 10.9 % (3.8-10.2); NEUT % 50.3 % (42.8-82.8); PLATELET COUNT 290 K/MM3 (134-434); RBC 4.18 M/mm3 (3.60-5.2); RDW 15.6 % (11.6-15.6); WHITE BLOOD COUNT 7.4 K/mm3 (4.0-10.0)
[2017-05-11 09:15] LABS: ALK PHOS 55 U/L (45-117); ANION GAP 10 (8-16); BILIRUBIN,TOTAL 0.6 mg/dL (0.2-1.0); BLOOD UREA NITROGEN 5 mg/dL (7-18); CALCIUM 8.1 mg/dL (8.5-10.1); CHLORIDE 105 mmol/L (98-107); CO2 24 mmol/L (21-32); CREATININE 0.5 mg/dL (0.55-1.02); GLUCOSE,RANDOM 109 mg/dL (74-106); MAGNESIUM 1.8 mg/dL (1.8-2.4); PHOSPHOROUS 2.9 mg/dL (2.5-4.9); POTASSIUM 3.9 mmol/L (3.5-5.1); SGOT/AST 13 U/L (15-37); SODIUM 139 mmol/L (136-145); TOT PROT 5.5 g/dl (6.4-8.2)
[2017-05-11 09:22] LABS: SGPT/ALT 18 U/L (12-78)
[2017-05-11] MEDS ORDERED: PT OWN MED DRAWER 7, Y5N ONE ×3 (10:31→13:13)
[2017-05-11] MEDS ORDERED: INSULIN (NOVOLOG) ASPART 100 UNITS/ML 10ML VIAL ONE (10:42)
[2017-05-11] MEDS: clonazePAM 2 MG TABLET PO SCH (10:50)
[2017-05-11] MEDS: INSULIN DETEMIR 100 UNITS/ML MDV SQ SCH (10:51)
[2017-05-11] MEDS: PANTOPRAZOLE SODIUM 40 MG VIAL IVPUSH SCH (10:52)
[2017-05-11] MEDS: LORazepam 2 MG/ML SDV VIAL IVPUSH PRN (13:28)
--- NOTE | 2017-05-11 13:32 | PN ---
Progress Note (short form) - Note Progress Note: C/O anxiety Otherwise feels better Moved Bowels today Apetite better Vital Signs Period Temp Pulse Resp BP Sys/Arce Pulse Ox Last 24 Hr 98.6 F-99.8 F 80-89 18-18 131-137/70-95 100 PE: Aox3 Neck: Supple, No JVD HEENT: EOMI Lungs: CTA CVS: S1S2 Abd: Benign, +BS EXt: No edema Neuro: No focal deficit CMP Sodium 139 mmol/L (136-145) 05/11/17 07:30 Potassium 3.9 mmol/L (3.5-5.1) 05/11/17 07:30 Chloride 105 mmol/L (98-107) 05/11/17 07:30 Carbon Dioxide 24 mmol/L (21-32) 05/11/17 07:30 Anion Gap 10 (8-16) 05/11/17 07:30 BUN 5 mg/dL (7-18) L 05/11/17 07:30 Creatinine 0.5 mg/dL (0.55-1.02) L 05/11/17 07:30 Creat Clearance w eGFR > 60 (>60) 05/11/17 07:30 POC Glucometer 346 UNITS (80-120) 05/11/17 11:53 Random Glucose 109 mg/dL (74-106) H 05/11/17 07:30 Hemoglobin A1c % 10.2 % (4.8-6.0) H 05/08/17 08:31 Lactic Acid 2.0 mmol/L (0.0-2.0) 05/08/17 01:00 Calcium 8.1 mg/dL (8.5-10.1) L 05/11/17 07:30 Phosphorus 2.9 mg/dL (2.5-4.9) 05/11/17 07:30 Magnesium 1.8 mg/dL (1.8-2.4) 05/11/17 07:30 Total Bilirubin 0.6 mg/dL (0.2-1.0) 05/11/17 07:30 AST 13 U/L (15-37) L 05/11/17 07:30 ALT 18 U/L (12-78) 05/11/17 07:30 Alkaline Phosphatase 55 U/L (45-117) 05/11/17 07:30 Creatine Kinase 93 IU/L (26-192) 05/08/17 01:00 Troponin I < 0.02 ng/ml (0.00-0.05) 05/08/17 01:00 Total Protein 5.5 g/dl (6.4-8.2) L 05/11/17 07:30 Albumin 3.0 g/dl (3.4-5.0) L 05/11/17 07:30 Lipase 30 U/L (73-393) L 05/08/17 01:00 TSH 0.41 uIU/ml (0.358-3.74) 05/11/17 07:30 Serum , Qual Negative 05/08/17 01:00 Current Medications Generic Name Dose Route Start Last Admin Trade Name Rosalba PRN Reason Stop Dose Admin Acetaminophen 1,000 mg 05/09/17 16:54 05/10/17 11:05 Ofirmev Injection - IVPB 1,000 mg Q6H PRN Administration PAIN Clonazepam 2 mg 05/08/17 10:00 05/11/17 10:50 Klonopin - PO 2 mg DAILY DULCE MARIA Administration Fluoxetine HCl 10 mg 05/08/17 10:00 05/10/17 10:39 Prozac - PO 10 mg DAILY DULCE MARIA Administration Heparin Sodium (Porcine) 5,000 unit 05/08/17 10:15 05/11/17 10:51 Heparin - SQ 5,000 unit Q8H DULCE MARIA Administration Potassium Chloride/Dextrose/Sod Cl 20 meq in 1,000 mls @ 150 mls/hr 05/08/17 10:45 05/11/17 10:52 D5-1/2ns+20 Meq Kcl - IV Not Given ASDIR DULCE MARIA Insulin Aspart 1 vial 05/09/17 16:30 05/11/17 11:58 Novolog Vial Sliding Scale - SQ 5 unit TIDAC DULCE MARIA Administration Protocol Insulin Aspart 1 vial 05/09/17 22:00 05/10/17 21:46 Novolog Vial Sliding Scale - SQ Not Given HS [facility] Protocol Insulin Detemir 12 units 05/10/17 10:00 05/11/17 10:51 Levemir Vial SQ 12 units DAILY@0700 DULCE MARIA Administration Lamotrigine 50 mg 05/09/17 22:00 05/10/17 21:45 Lamictal - PO 50 mg HS DULCE MARIA Administration Levothyroxine Sodium 50 mcg 05/08/17 10:00 05/11/17 06:25 Synthroid - PO 50 mcg DAILY@0700 DULCE MARIA Administration Lorazepam 0.5 mg 05/09/17 19:45 05/11/17 13:28 Ativan Injection - IVPUSH 0.5 mg Q6H PRN Administration ANXIETY Ondansetron HCl 4 mg 05/08/17 09:56 05/10/17 06:20 Zofran Injection IVPUSH 4 mg Q8H PRN Administration NAUSEA Pantoprazole Sodium 40 mg 05/09/17 22:00 05/11/17 10:52 Protonix Iv IVPUSH 40 mg BID DULCE MARIA Administration Trazodone HCl 300 mg 05/09/17 22:00 05/10/17 21:43 Desyrel - PO 300 mg HS DULCE MARIA Administration A/P DKA T1DM Hypothyroidism Constipation Bipolar Disorder Levemir 12 daily Repeat D50 if blood repeat blood sugar <70 BGM Q 4 hrs Off D5 1/2 NS with 20 KCl as blood sugar 300s and pt is eating more. Restart D5 1/2NS if blood sugars drop <100 CMP, Mg Po4 in a.m. Replace electrolytes as necessary Continue LT4 50mcg QD for now. Repeat TFT as outpt and change dose if necessary Will f/u Problem List - Problems (1) DKA (diabetic ketoacidoses) Code(s): E13.10 - OTH DIABETES MELLITUS WITH KETOACIDOSIS WITHOUT COMA (2) DM Diabetes mellitus type 1 Code(s): E10.9 - TYPE 1 DIABETES MELLITUS WITHOUT COMPLICATIONS (3) Hypothyroidism Code(s): E03.9 - HYPOTHYROIDISM, UNSPECIFIED
[2017-05-11 13:46] VITALS: TEMP 98.3
[2017-05-11] MEDS: FLUoxetine HCL 10 MG CAPSULE (FP) PO SCH (13:52)
[2017-05-11] MEDS ORDERED: DEXTROSE 5%-0.45% SALINE 1,000 ML IV SCH ×2 (15:45→19:27)
[2017-05-11 17:00] VITALS: BP 110/68; PULSE 80
--- NOTE | 2017-05-11 20:30 | PN ---
Teaching Attending Note Name of Resident: Eugene Norris ATTENDING PHYSICIAN STATEMENT I saw and evaluated the patient. I reviewed the resident's note and discussed the case with the resident. I agree with the resident's findings and plan as documented. SUBJECTIVE:seen at 12 pm no fever or chills. diarrhea OBJECTIVE: NAd Cv : RRr Lungs : CTAB ext : no edema abd : soft, Nt, ND , NL BS A/P 31 y/o lady with h/o IDDM, HTN, hypothyroidism, anxiety, depression, bipolar who presented with N/V , and was found to have DKA 1- DKA : resolved . BGM > 30 on D5 this am , D5 held. BGM then dropped to 49. resume D5 and increase rate cont levemir at 12 cont SSI appreciate endo help 2- severe constipation : - miralax bid - senna and colce - refusing laxatives due to diarrhea 3- hypothyroidism . cont synthroid. TFTs as out pt 4- mild R hydro, still seen on US today. likely due to constipation . will need repeat US in 1 week HLOC. wanted to leave AMA , risks explained
[2017-05-11] MEDS ORDERED: SENNOSIDES/DOCUSATE COMBO (SENNA PLUS) TABLET (UD) PO SCH (22:00)
[2017-05-11] MEDS ORDERED: POLYETHYLENE GLYCOL 3350 119 GM BTL PO SCH (22:00)
--- NOTE | 2017-05-11 22:19 | HOSP ---
Subjective - Review of Symptoms Events since last encounter: Was called to see pt because she stated she was planning to leave AMA. Pt was very upset stating her hygiene care was suboptimal. She stated she was given laxatives and was cleaning herself every 15 min but was unhappy she was sitting in dirty clothes for several days. Pt was noted to be wearing her own personal clothes and not a hospital gown. It was explained that facilities and products were available to her including fresh clean gown, sheets, a shower, wipes, etc... Pt refused all of these. Risks of leaving the hospital AMA were explained and emphasized. Pt stated she knew all the risks of diabetes as she has had the condition for many years and she sees "the best repair coil winder in the city". It was emphasized that her sugars were not as stable as they should be before she goes home and there was concern that they might vary even more at home possibly leading to coma, seizures, or . Pt stated understanding and requested AMA form, which she then signed. Physical Examination Vital Signs: Vital Signs Temperature 98.3 F 05/11/17 16:59 Pulse Rate 80 05/11/17 16:59 Respiratory Rate 20 05/11/17 16:59 Blood Pressure 110/68 05/11/17 16:59 O2 Sat by Pulse Oximetry (%) 100 05/11/17 09:00 Labs: CBC, BMP 05/11/17 07:30 05/11/17 07:30 Visit type - Emergency Visit Emergency Visit: Yes ED Registration Date: 05/08/17 Care time: The patient presented to the Emergency Department on the above date and was hospitalized for further evaluation of their emergent condition. - New Patient This patient is new to me today: Yes Date on this admission: 05/11/17 - Critical Care Critical Care patient: No
--- NOTE | 2017-05-12 08:06 | DS ---
Physical Exam: SUBJECTIVE: Patient seen and examined at bedside. she denies any abdominal pain , fever, chills, she reports some nausea but no vomitting , she has multiple BM secondary to laxatives we gave to her. She is asking to go home. OBJECTIVE: Vital Signs Period Temp Pulse Resp BP Sys/Arce Pulse Ox Last 24 Hr 98.3 F-98.6 F 77-80 18-20 110-139/68-95 100 PHYSICAL EXAM GENERAL: The patient is awake, alert, and fully oriented, in no acute distress. HEAD: Normal with no signs of trauma. EYES: PERRL, extraocular movements intact, sclera anicteric, conjunctiva clear. ENT: Ears normal, nares patent, oropharynx clear without exudates, moist mucous membranes. NECK: supple. LUNGS: Breath sounds equal, clear to auscultation bilaterally, no wheezes, no crackles, no accessory muscle use. HEART: Regular rate and rhythm, S1, S2 without murmur, rub or gallop. ABDOMEN: Soft, nontender, nondistended, normoactive bowel sounds, no guarding, no rebound, EXTREMITIES: 2+ pulses, warm, well-perfused, no edema. NEUROLOGICAL: Cranial nerves II through XII grossly intact. Normal speech, gait not observed. PSYCH: anxious SKIN: Warm, dry, normal turgor, no rashes or lesions noted. LABS Laboratory Results - last 24 hr 05/11/17 05/11/17 05/11/17 07:30 07:30 10:43 WBC 7.4 RBC 4.18 Hgb 12.2 Hct 37.7 MCV 90.3 MCH 29.3 MCHC 32.4 RDW 15.6 Plt Count 290 MPV 9.9 Neutrophils % 50.3 D Lymphocytes % 36.6 D Monocytes % 10.9 H Eosinophils % 1.9 D Basophils % 0.3 Sodium 139 Potassium 3.9 Chloride 105 Carbon Dioxide 24 Anion Gap 10 BUN 5 L Creatinine 0.5 L Creat Clearance w eGFR > 60 POC Glucometer 282 Random Glucose 109 H Calcium 8.1 L Phosphorus 2.9 Magnesium 1.8 Total Bilirubin 0.6 AST 13 L ALT 18 Alkaline Phosphatase 55 Total Protein 5.5 L Albumin 3.0 L TSH 0.41 05/11/17 05/11/17 05/11/17 11:53 15:38 16:38 WBC RBC Hgb Hct MCV MCH MCHC RDW Plt Count MPV Neutrophils % Lymphocytes % Monocytes % Eosinophils % Basophils % Sodium Potassium Chloride Carbon Dioxide Anion Gap BUN Creatinine Creat Clearance w eGFR POC Glucometer 346 49 102 Random Glucose Calcium Phosphorus Magnesium Total Bilirubin AST ALT Alkaline Phosphatase Total Protein Albumin TSH 05/11/17 05/11/17 17:23 18:52 WBC RBC Hgb Hct MCV MCH MCHC RDW Plt Count MPV Neutrophils % Lymphocytes % Monocytes % Eosinophils % Basophils % Sodium Potassium Chloride Carbon Dioxide Anion Gap BUN Creatinine Creat Clearance w eGFR POC Glucometer 66 72 Random Glucose Calcium Phosphorus Magnesium Total Bilirubin AST ALT Alkaline Phosphatase Total Protein Albumin TSH CBC, BMP 05/11/17 07:30 05/11/17 07:30 HOSPITAL COURSE: Date of Admission:05/08/17 Date of Discharge: 05/12/17 Patient is a 34-year-old female who presented to the ED on 05/08/17 with nausea and vomiting who was found to have diabetic ketoacidosis with a random blood glucose of 413, a VBG pH of 7.21, ketones in her urine, serum bicarbonate of 12 and an anion gap of 24. She was placed on insulin drip in the ED. She was admitted to the ICU where she was given an insulin drip, D5 1/2 NS, and 20 Kcl to 150/hour and CMP was monitored regularly. Her anion gap closed and she was transferred to floors where she continued D5 1/2 NS and switched to Levemir 12 daily.she was treated for constipation with miralax TID, Glycerine suppositories and Bowel prep and digitaldisimpaction and was able to have a bowel movement. Patient was noticed to have mild right hydronephrosis confirmed on US and CT abdomen most likely 2/2 constipation she will follow up as out patient with small business sales representative and recommend to repeat the kidney US . Patient had hypothyroidism and her Synthroid 50 mcg was resumed during hospitalization.patient has an anxiety, depression and Bipolar disorder and her home meds were resumed (fluoxetine 10 mg po qd, klonopin 2mg po qd, lamictal 50 mg po qd hs , Patient blood sugar drop to 49 when we stop the D5w /1/2NS , we restart the fluid and monitor her Blood sugar , Patient refuse to stay claiming she know how manage the drop or elevation in her blood sugar. and decided to leave against medical advice and was informed of the risks of doing so, including hypoglycemia, hyperglycemia, including . Minutes to complete discharge: 40 Discharge Summary Reason For Visit: DIABETIC KETOACIDOSIS Condition: Stable - Instructions Diet, Activity, Other Instructions: Your were admitted to the hospital due to sever elevated blood sugar due to non compliance with your insulin and sever constipation due to opioid abuse. Please follow diabetic diet , Please take your insulin as prescribed, please monitor your blood sugar 3 times a day. Please use laxative as needed to help you have bowel movement. make sure you have daily bowel movement . Please follow up with your primary care physician within a week. Please follow up with surface lay out technician within a week Please resume all your home meds as prescribed If your symptoms worsen or you develop any fever, chills call 911 or come back to emergency department as soon as possible. Referrals: Kathleen Kilpatrick MD [Staff Physician] - 1 Week Disposition: AGAINST MEDICAL ADVICE - Home Medications Comprehensive Discharge Medication List: Ambulatory Orders Baclofen 10 mg PO DAILY 05/08/17 Clonazepam [Klonopin] 2 mg PO DAILY 05/08/17 Fluoxetine HCl [Prozac] 10 mg PO DAILY 05/08/17 Insulin (Levemir) [Levemir Vial] 22 unit SQ DAILY 05/08/17 Lamotrigine [Lamictal] 50 mg PO DAILY 05/08/17 Levothyroxine [Synthroid -] 50 mcg PO DAILY 05/08/17 Ramipril [Altace] 10 mg PO DAILY 05/08/17 Trazodone HCl 300 mg PO DAILY 05/08/17 This patient is new to me today: No Emergency Visit: Yes ED Registration Date: 05/08/17 Care time: The patient presented to the Emergency Department on the above date and was hospitalized for further evaluation of their emergent condition. Critical Care patient: No Total Critical Care Time (in minutes): 40 Critical Care Statement: The care of this patient involved high complexity decision making to prevent further life threatening deterioration of the patient 's condition and/or to evaluate & treat vital organ system(s) failure or risk of failure. - Discharge Referral Referred to [facility] Med P.C.: No
== END 2017-05-11 20:00 | disposition left against medical advice (07) | DRG 420 ==
LOC: JER 00:04 → JERBED 05:52 → J5S 20:32
PROVIDERS: ADMIT Internal Medicine; ATTEND Internal Medicine
DX: E13.10 Other specified diabetes mellitus with ketoacidosis without coma (principal); K59.00 Constipation, unspecified; E03.9 Hypothyroidism, unspecified; F41.8 Other specified anxiety disorders; F31.9 Bipolar disorder, unspecified; E87.1 Hypo-osmolality and hyponatremia; N13.30 Unspecified hydronephrosis; Z91.14 Patient's other noncompliance with medication regimen; Z79.4 Long term (current) use of insulin; E11.65 Type 2 diabetes mellitus with hyperglycemia; F17.210 Nicotine dependence, cigarettes, uncomplicated; F11.20 Opioid dependence, uncomplicated; F31.89 Other bipolar disorder; F10.20 Alcohol dependence, uncomplicated; E10.9 Type 1 diabetes mellitus without complications; F12.20 Cannabis dependence, uncomplicated; I10 Essential (primary) hypertension; F41.9 Anxiety disorder, unspecified; F32.9 Major depressive disorder, single episode, unspecified
CPT/HCPCS: 36415; 71045-TC; 74177-TC; 76775-TC; 80048; 80053; 80307; 81003; 82009; 82040; 82550; 82803; 82962; 83036; 83605; 83690; 83735; 84100; 84443; 84484; 84703; 85025; 85027; 85610; 85730; 87086; 93005; 93010; 99284-25; J0475; J1644

== ENCOUNTER 2018-03-20 11:03 | Emergency (ER) | payer OTHER ==
--- NOTE | 2018-03-20 11:20 | PDOC ---
Attending Attestation - Resident Resident Name: Juan Rodriguez - HPI HPI: 03/20/18 12:09 Pt presents to the ED complaining of several weeks of epigastric pain, nausea and burning sensation after eating acidic or spicy foods. Presents to the ED today because she had an episode of bloody vomiting and melanotic stool this AM. Denies fevers. Denies prior episodes of GI bleed. - Physicial Exam PE: 03/20/18 12:13 Agree with resident exam. Patient is alert and oriented and in no acute distress. + mild epigastric tenderness, without guarding or rebound. - Medical Decision Making 03/20/18 12:31 Pt presents to the ED complaining of epigastric pain, along with hematemesis and dark, tarry stool. Stool negative for occult blood. Will check labs and give IV pepcid, reassess. Will discharge home with follow up with GI if labs are within normal limits. 03/20/18 12:32
[2018-03-20] MEDS ORDERED: FAMOTIDINE 20 MG/50 ML IVPB 20 MG/50 ML MG IVPB ONE ×2 (11:34→11:55)
[2018-03-20] MEDS ORDERED: SUCRALFATE 1 GM/10 ML UNIT DOSE CUPS PO ONE (11:34)
[2018-03-20] MEDS ORDERED: MAG HYDROX/AL HYDROX/SIMETH 30 ML UNIT-DOSE CUP PO ONE (11:34)
[2018-03-20] MEDS ORDERED: SODIUM CHLORIDE 0.9% 500 ML INFUS.BAG IV ONE ×2 (11:34→13:13)
[2018-03-20 11:52] VITALS: BP 105/68; PULSE 80; TEMP 97.3; BMI 19.3
[2018-03-20] MEDS ORDERED: MAG HYDROX/AL HYDROX/SIMETH 30 ML UNIT-DOSE CUP ONE (11:55)
[2018-03-20] MEDS ORDERED: SUCRALFATE 1 GM/10 ML UNIT DOSE CUPS ONE (11:55)
--- NOTE | 2018-03-20 12:05 | PDOC ---
History of Present Illness - General Chief Complaint: Vomiting Blood Stated Complaint: HEARTBURN, VOMITED BLOOD, DARK STOOL Time Seen by Provider: 03/20/18 11:20 - History of Present Illness Initial Comments: 32 year old female with PMH of DMI presenting with nausea, bloody vomiting, abdominal pain, dark stool, and weakness for the past day. Patient has been dealing with sharp epigastric pain for the past few months after a a "binge of eating food" and eventually had to change her diet. Over the pat week however, she has noticed some dark stools and and last night had some stomach upset in the setting of apple cider ingestion. this morning she woke up with nausea and vomiting x 3. The first episode was blood streaked and she had one more episode of dark stools. She also admits to some chills over the past week. She takes ranitidine and tums for her abdominal pains at home. Denies any fevers , chest pain, headache, presyncopal sensation, palpitations, or other symptoms. Of note, her mother had history of ulcers but her H. Pylori tests were negative. 03/20/18 12:06 Past History - Past Medical History Allergies/Adverse Reactions: Allergies Allergy/AdvReac Type Severity Reaction Status Date / Time diphenhydramine HCl AdvReac Verified 05/08/17 01:52 [From Benadryl] erythromycin base AdvReac Nausea Verified 05/08/17 01:52 Home Medications: Ambulatory Orders Clonazepam [Klonopin] 2 mg PO DAILY 05/08/17 Levothyroxine [Synthroid -] 50 mcg PO DAILY 05/08/17 Ramipril [Altace] 10 mg PO DAILY 05/08/17 Amlodipine Besylate [Norvasc -] 5 mg PO DAILY 03/20/18 Bupropion HCl [Wellbutrin Xl] 300 mg PO DAILY 03/20/18 Buspirone HCl [Buspar -] 20 mg PO BID 03/20/18 Insulin Glargine,Hum.rec.anlog [Lantus Solostar PEN (NF)] 30 units SQ DAILY 07/03 Insulin Lispro [Humalog] 0 unit SQ ACHS 03/20/18 Lamotrigine [Lamictal Xr] 200 mg PO HS 03/20/18 Ondansetron [Zofran *Odt*] 8 mg SL BID PRN 7 Days #14 od.tablet 03/20/18 Ranitidine [Zantac -] 300 mg PO ONCE 03/20/18 traZODone HCL [Trazodone HCl] 200 mg PO HS 03/20/18 Anemia: No Asthma: (+) Cancer: No Cardiac Disorders: No CVA: No COPD: No (+) CHF: No Dementia: No Diabetes: Yes GI Disorders: No Disorders: No HTN: Yes Hypercholesterolemia: No Kidney Stones: No Liver Disease: No Psychiatric Problems: Yes Seizures: No Thyroid Disease: Yes (Muriel's disease hypothyroidism) - Surgical History Abdominal Surgery: No Neurologic Surgery: Yes (DISCECTOMY-2011) Orthopedic Surgery: Yes (surgert for herniated disc in 2011 at [facility]) - Immunization History Immunization Up to Date: Yes - Suicide/Smoking/Psychosocial Hx Smoking Status: Yes Smoking History: Current every day smoker Have you smoked in the past 12 months: No Number of Cigarettes Smoked Daily: 9 Cigars Per Day: 0 Information on smoking cessation initiated: Yes 'Breaking Loose' booklet given: 03/20/18 Hx Alcohol Use: No Drug/Substance Use Hx: No Substance Use Type: None Hx Substance Use Treatment: Yes ([address] [facility]) Review of Systems - Review of Systems Constitutional: Yes: Chills. No: Diaphoresis, Fever HEENTM: No: Tearing, Recent change in vision, Double Vision Respiratory: No: Cough, Orthopnea, Shortness of Breath Cardiac (ROS): No: Edema, Irregular Heart Rate ABD/GI: No: Diarrhea, Nausea, Vomiting : No: Burning, Dysuria, Discharge Musculoskeletal: No: Muscle Pain, Muscle Weakness Integumentary: No: Change in Color, Erythema, Flushing, Lesions, Lumps Neurological: No: Headache, Numbness, Tingling Psychiatric: No: Anxiety, Depression Hematologic/Lymphatic: No: Anemia, Blood Clots, Easy Bleeding *Physical Exam - Vital Signs Last Vital Signs Temp Pulse Resp BP Pulse Ox 97.3 F L 80 16 105/68 100 03/20/18 11:15 03/20/18 11:15 03/20/18 11:15 03/20/18 11:15 03/20/18 11:15 - Physical Exam General Appearance: Yes: Nourished, Appropriately Dressed. No: Apparent Distress HEENT: positive: EOMI, ARIEL, Normal ENT Inspection, Normal Voice Neck: positive: Trachea midline, Normal Thyroid, Supple. negative: Tender, Rigid Respiratory/Chest: positive: Lungs Clear, Normal Breath Sounds. negative: Chest Tender, Respiratory Distress, Accessory Muscle Use Cardiovascular: positive: Regular Rhythm, Regular Rate Gastrointestinal/Abdominal: positive: Normal Bowel Sounds, Tender (epigastric and ruq mild tenderness to palpation), Flat, Soft Rectal Exam: positive: heme negative stool, normal rectal tone. negative: normal exam (dark black stool), hemorrhoids Musculoskeletal: positive: Normal Inspection. negative: Decreased Range of Motion Extremity: positive: Normal Capillary Refill, Normal Inspection, Normal Range of Motion. negative: Tender Integumentary: positive: Normal Color, Dry, Warm Neurologic: positive: Fully Oriented, Alert, Normal Mood/Affect, Normal Response , Motor Strength 5/5 Moderate Sedation - Procedure Monitoring Vital Signs: Procedure Monitoring Vital Signs Temperature 97.3 F L 03/20/18 11:15 Pulse Rate 80 03/20/18 11:15 Respiratory Rate 16 03/20/18 11:15 Blood Pressure 105/68 03/20/18 11:15 O2 Sat by Pulse Oximetry (%) 100 03/20/18 11:15 ED Treatment Course - LABORATORY CBC & Chemistry Diagram: 03/20/18 12:20 03/20/18 12:20 Medical Decision Making - Medical Decision Making 32 year old female with diabetes and recent epigastric pain in the setting of eating spicey foods presenting for abdominal pain, nausea, bloody vomit x1, and dark stools. Although stool appeared black on exam, it was heme negative. Labs corroborating hyperglycemia with ketouria but without acidosis or anion gap. No sign of great blood losss as HgB was 12.9 and previous labs were similar 6 months prior according to PMD office (08/22/17 Hgb 13.3 Hct 39.1 Platelets 323). These symptoms are likely due to hyperglycemia vs. peptic ulcer. Patient given 2 L IV fluid, Pepcid, Maalox, and Zofran. Symptoms resolved and patient DC'd with Zofran prescription and follow up with GI for further evaluation. 03/20/18 12:12 *DC/Admit/Observation/Transfer Diagnosis at time of Disposition: Acute hyperglycemia Abdominal pain Qualifiers: Abdominal location: epigastric Qualified Code(s): R10.13 - Epigastric pain - Discharge Dispostion Disposition: HOME Condition at time of disposition: Improved Decision to Admit order: No - Prescriptions Prescriptions: Ondansetron [Zofran *Odt*] 8 mg SL BID PRN 7 Days #14 od.tablet PRN Reason: Nausea And/Or Vomiting - Referrals Referrals: Georges Guillory MD [Primary Care Provider] - Jesús Avery DO [Staff Physician] - - Patient Instructions Printed Discharge Instructions: DI for Abdominal Pain-Adult Additional Instructions: Please use the zofran up to twice a day if you have nausea. Please follow up with the [facility] this week to have your symptoms thoroughly evaluated by a specialist. Please use your ranitidine and Maalox as needed for the abdominal pin. Avoid high sugar foods, acidic foods, and please take your insulin as directed. Return to the ED if you have new or worsening symptoms. - Post Discharge Activity
[2018-03-20 12:48] LABS: HEMATOCRIT 40.4 % (32.4-45.2); HEMOGLOBIN 13.6 GM/dl (10.7-15.3); MCH 32.3 pg (25.7-33.7); MCHC 33.5 g/dl (32.0-36.0); MEAN CELL VOLUME 96.4 fl (80-96); MEAN PLT VOLUME 9.1 fl (7.5-11.1); PLATELET COUNT 274 K/MM3 (134-434); RBC 4.19 M/mm3 (3.60-5.2); RDW 13.2 % (11.6-15.6); WHITE BLOOD COUNT 12.8 K/mm3 (4.0-10.8)
[2018-03-20 13:03] LABS: INR 0.93 (0.82-1.09); PROTHROMBIN TIME (PATIENT) 10.4 SEC (10.2-13.0)
[2018-03-20 13:08] LABS: ALBUMIN 3.7 g/dl (3.5-5.0); ALK PHOS 49 U/L (32-92); ANION GAP 12 MMOL/L (8-16); BLOOD UREA NITROGEN 18 mg/dl (7-18); CALCIUM 9.4 mg/dl (8.4-10.2); CHLORIDE 90 mmol/L (98-107); CO2 25 mmol/L (22-28); CREATININE 0.9 mg/dl (0.6-1.3); POTASSIUM 4.7 mmol/L (3.5-5.1); SGOT/AST 16 U/L (10-42); SGPT/ALT 11 U/L (10-40); SODIUM 127 mmol/L (136-145); TOT PROT 6.4 g/dl (6.4-8.3)
[2018-03-20 13:13] LABS: GLUCOSE,RANDOM 328 mg/dl (74-106)
[2018-03-20 13:18] LABS: URINE APPEARANCE Clear; URINE BILIRUBIN 1+ (NEGATIVE); URINE COLOR Yellow; URINE GLUCOSE (UA) 3+ (NEGATIVE); URINE KETONE 4+ (NEGATIVE); URINE LEUK ESTERASE Negative (NEGATIVE); URINE NITRITE Negative (NEGATIVE); URINE PROTEIN Negative (NEGATIVE); URINE UROBILINOGEN 0.2 (0.2-1.0)
[2018-03-20 14:32] LABS: PLATELET ESTIMATE ADEQUATE
== END 2018-03-20 15:11 | disposition home or self-care (01) ==
LOC: FER 11:03
PROC: 3E0337Z Introduction of Electrolytic and Water Balance Substance into Peripheral Vein, Percutaneous Approach (ICD-10-PCS; principal; 2018-03-20)
PROC: 3E033GC Introduction of Other Therapeutic Substance into Peripheral Vein, Percutaneous Approach (ICD-10-PCS; 2018-03-20)
DX: E11.65 Type 2 diabetes mellitus with hyperglycemia (principal); R10.13 Epigastric pain
CPT/HCPCS: 36415; 80053; 81003; 82272; 84703; 85025; 85610; 86850; 86900; 86901; 99283-25

== ENCOUNTER 2018-04-05 10:11 | Day surgery (SDC) | payer OTHER ==
[2018-03-29 14:38] VITALS: BMI 19.3
[2018-04-05] MEDS ORDERED: LIDOCAINE HCL/PF 2% SDV 5ML VIAL ONE (12:19)
[2018-04-05] MEDS ORDERED: PROPOFOL 20 ML ONE ×2 (12:20)
[2018-04-05 13:10] VITALS: BP 122/68; PULSE 77; TEMP 98.2
--- NOTE | 2018-04-10 13:22 | PATH ---
Surgical Pathology Report Patient Name: ROSE POSEY [facility]. Rec. #: [id number] /Age/Gender: 1985 (Age: 32) / F Account: [id number] Location: [facility] Taken: 04/05/2018 Received: 04/05/2018 Reported: 04/10/2018 Physicians: Joana Lubin M.D. Specimen(s) Received A: BX DUODENUM 2ND PORTION B: BX ANTRUM C: BX GE JUNCTION Clinical History Hematemesis Postoperative diagnosis: Gastritis Final Diagnosis A. DUODENUM, SECOND PORTION, BIOPSY: DUODENUM MUCOSA WITH NO DIAGNOSTIC ABNORMALITIES. NO HISTOLOGIC EVIDENCE OF CELIAC DISEASE. B. ANTRUM, BIOPSY: GASTRIC MUCOSA WITH REACTIVE GASTROPATHY. NEGATIVE FOR INTESTINAL METAPLASIA. IMMUNOSTAIN FOR H. PYLORI IS NEGATIVE. C. GE JUNCTION, BIOPSY: GASTROESOPHAGEAL JUNCTIONAL MUCOSA WITH ACUTE INFLAMMATION AND CHANGES CONSISTENT WITH REFLUX ESOPHAGITIS. PAS STAIN FAILED TO REVEAL FUNGAL HYPHAE. NEGATIVE FOR INTESTINAL METAPLASIA. Electronically Signed Raul Fragoso M.D. Gross Description A. Received in formalin, labeled "biopsy duodenum second portion" is a zimmerman, irregular portion of soft tissue measuring 0.3 cm. in greatest dimension. The specimen is submitted in toto in one cassette. B. Received in formalin, labeled "biopsy antrum" is a zimmerman, irregular portion of soft tissue measuring 0.3 cm. in greatest dimension. The specimen is submitted in toto in one cassette. C. Received in formalin, labeled "biopsy GE junction" is a zimmerman, irregular portion of soft tissue measuring 0.5 cm. in greatest dimension. The specimen is submitted in toto in one cassette. 04/06/2018 [facility]04/06/2018
== END 2018-04-05 13:10 | disposition home or self-care (01) ==
LOC: FASU-ENDO 10:11
PROVIDERS: ATTEND Internal Medicine Gastroenterology
PROC: 0DB68ZX Excision of Stomach, Via Natural or Artificial Opening Endoscopic, Diagnostic (ICD-10-PCS; 2018-04-05)
PROC: 0DB48ZX Excision of Esophagogastric Junction, Via Natural or Artificial Opening Endoscopic, Diagnostic (ICD-10-PCS; 2018-04-05)
PROC: 0DB98ZX Excision of Duodenum, Via Natural or Artificial Opening Endoscopic, Diagnostic (ICD-10-PCS; principal; 2018-04-05 11:15)
DX: K92.2 Gastrointestinal hemorrhage, unspecified (principal); R10.13 Epigastric pain; K31.9 Disease of stomach and duodenum, unspecified; K21.0 Gastro-esophageal reflux disease with esophagitis; I10 Essential (primary) hypertension; E11.9 Type 2 diabetes mellitus without complications; E06.3 Autoimmune thyroiditis
CPT/HCPCS: 82962; 84703; 88305-TC; 88312-TC; 88342-TC

== ENCOUNTER 2018-05-24 09:26 | Day surgery (SDC) | payer OTHER ==
[2018-05-11 12:48] VITALS: BMI 19.3
[2018-05-24] MEDS ORDERED: LIDOCAINE HCL/PF 2% SDV 5ML VIAL ONE (10:18)
[2018-05-24] MEDS ORDERED: PROPOFOL 20 ML ONE ×2 (10:18)
[2018-05-24 10:47] VITALS: PULSE 72; TEMP 97.8
[2018-05-24 11:06] VITALS: BP 123/78
--- NOTE | 2018-05-25 14:04 | PATH ---
Surgical Pathology Report Patient Name: ROSE POSEY [facility]. Rec. #: [id number] /Age/Gender: 1985 (Age: 32) / F Account: [id number] Location: [facility] Taken: 05/24/2018 Received: 05/24/2018 Reported: 05/25/2018 Physicians: Joana Lubin M.D. Specimen(s) Received DISTAL TRANSVERSE POLYP Clinical History GI bleed Postoperative diagnosis: Polyp, hemorrhage Final Diagnosis DISTAL TRANSVERSE, POLYP, BIOPSY: HYPERPLASTIC POLYP. Electronically Signed Elizabeth Velez M.D. Gross Description Received in formalin, labeled "polyp distal transverse" is a zimmerman, irregular portion of soft tissue measuring 0.3 cm. in greatest dimension. The specimen is submitted in toto in one cassette. 05/24/201805/24/2018
== END 2018-05-24 11:14 | disposition home or self-care (01) ==
LOC: FASU-ENDO 09:26
PROVIDERS: ATTEND Internal Medicine Gastroenterology
PROC: 0DBL8ZX Excision of Transverse Colon, Via Natural or Artificial Opening Endoscopic, Diagnostic (ICD-10-PCS; principal; 2018-05-24 10:19)
DX: K63.5 Polyp of colon (principal); K64.0 First degree hemorrhoids; K92.2 Gastrointestinal hemorrhage, unspecified
CPT/HCPCS: 82962; 84703; 88305-TC

== ENCOUNTER 2019-01-02 12:17 | Emergency (ER) | payer OTHER | END 2019-01-02 15:25 | disposition home or self-care (01) | LOC: FER 12:17 ==

== ENCOUNTER 2020-02-26 04:32 | Emergency (ER) | payer OTHER ==
[2020-02-26 05:05] VITALS: TEMP 97.4; BMI 16.9
[2020-02-26] MEDS ORDERED: LACTATED RINGERS SOLUTION 1000 ML INFUS.BAG IV ONE ×2 (05:08→08:45)
[2020-02-26 05:52] LABS: VENOUS O2 SATURATION 93.9 % (70-80); VENOUS PCO2 32.1 mmHg (38-52); VENOUS PH 7.472 (7.310-7.410)
[2020-02-26 05:53] LABS: BASO % 0.8 % (0-2.0); HEMATOCRIT 35.8 % (32.4-45.2); HEMOGLOBIN 11.7 GM/dL (10.7-15.3); LYMPH % 7.4 % (8-40); MCH 28.3 pg (25.7-33.7); MCHC 32.8 g/dl (32.0-36.0); MEAN CELL VOLUME 86.2 fl (80-96); MEAN PLT VOLUME 8.3 fl (7.5-11.1); MONO % 6.5 % (3.8-10.2); NEUT % 85.3 % (42.8-82.8); PLATELET COUNT 409 K/MM3 (134-434); RBC 4.15 M/mm3 (3.60-5.2); RDW 15.4 % (11.6-15.6)
[2020-02-26 06:25] LABS: POTASSIUM 4.7 mmol/L (3.5-5.1)
[2020-02-26 06:27] LABS: CALCIUM 9.1 mg/dL (8.5-10.1)
[2020-02-26 06:28] LABS: ALBUMIN 3.3 g/dl (3.4-5.0); BLOOD UREA NITROGEN 15.4 mg/dL (7-18)
[2020-02-26 06:32] LABS: BILIRUBIN,TOTAL 0.6 mg/dL (0.2-1)
[2020-02-26 06:35] LABS: CREATININE 0.5 mg/dL (0.55-1.3)
[2020-02-26] MEDS ORDERED: ONDANSETRON 4 MG/2 ML VIAL IVPUSH ONE (06:49)
[2020-02-26] MEDS ORDERED: METOCLOPRAMIDE HCL INJECTION 10 MG/2 ML VIAL IVPB ONE (08:00)
[2020-02-26] MEDS ORDERED: METOCLOPRAMIDE HCL INJECTION 10 MG/2 ML VIAL ONE (08:08)
[2020-02-26 08:26] LABS: PH,URINE 5.5 (5.0-8.0); URINE APPEARANCE CLEAR; URINE BILIRUBIN NEGATIVE (NEGATIVE); URINE COLOR YELLOW; URINE GLUCOSE (UA) 3+ (NEGATIVE); URINE KETONE 3+ (NEGATIVE); URINE LEUK ESTERASE NEGATIVE (NEGATIVE); URINE NITRITE NEGATIVE (NEGATIVE); URINE PROTEIN NEGATIVE (NEGATIVE); URINE UROBILINOGEN 0.2 mg/dL (0.2-1.0)
[2020-02-26] MEDS ORDERED: LORazepam 2 MG/ML SDV VIAL ONE (09:06)
[2020-02-26] MEDS ORDERED: SODIUM PHOSPHATE/NA BIPHOS 133 ML ENEMA PR ONE (09:36)
[2020-02-26 10:16] LABS: PLATELET ESTIMATE ADEQUATE
[2020-02-26] MEDS ORDERED: Methylnaltrexone Bromide 12 MG/0.6 ML KIT SQ ONE (10:30)
[2020-02-26 12:19] VITALS: BP 147/77; PULSE 102
== END 2020-02-26 12:42 | disposition home or self-care (01) ==
LOC: JER 04:32
PROC: 3E033NZ Introduction of Analgesics, Hypnotics, Sedatives into Peripheral Vein, Percutaneous Approach (ICD-10-PCS; principal; 2020-02-26)
PROC: 3E033GC Introduction of Other Therapeutic Substance into Peripheral Vein, Percutaneous Approach (ICD-10-PCS; 2020-02-26)
PROC: 3E033GC Introduction of Other Therapeutic Substance into Peripheral Vein, Percutaneous Approach (ICD-10-PCS; 2020-02-26)
DX: R11.2 Nausea with vomiting, unspecified (principal); K59.09 Other constipation
CPT/HCPCS: 36415; 74177-TC; 80053; 81003; 82010; 82803; 82962; 84703; 85025; 87086; 93005; 93010; 99285-25; Q9967